=== PATIENT | female | born 1965 | race Caucasian/White ===

== ENCOUNTER 2019-09-04 16:40 | Emergency (ER) | payer SELFPAY ==
[~2019-09-04] VITALS: Ht 160 cm; Wt 77.1 kg
--- OUTSIDE RECORDS SUMMARY | ~2019-09-04 | XMS | Encounter Summary ---
Demographics + + + | Address | [address] | | | [place] [address] | + + + | Home Phone | | + + + | Preferred Language | Unknown | + + + | Marital Status | | + + + | Hoahaoism Affiliation | CAT | + + + | Race | White | + + + | Ethnic Group | Not or | + + + Author + + + | Author | [facility] | + + + | Organization | [facility] | + + + | Address | Unknown | + + + | Phone | Unavailable | + + + Support + + +---------+ + | Name | Relationship | Address | Phone | + + +---------+ + | Ranjana Shell | ECON | Unknown | | + + +---------+ + Care Team Providers + +------+ + | Care Ice Cream Vault Worker Name | Role | Phone | + +------+ + | Shwetha Joseph | PCP | | + +------+ + Encounter Details +--------+ + + + + | Date | Type | Department | Care Team | Description | +--------+ + + + + | 12/16/ | Pharmacy | Outpatient Retail | | | | 2018 | Visit | [facility] | | | | | | [address] | | | | | | [place], | | | | | | [place] [address] | | | +--------+ + + + + Social History + +-------+ +--------+------+ | Tobacco Use | Types | Packs/Day | Years | Date | | | | | Used | | + +-------+ +--------+------+ | Never Smoker | | | | | + +-------+ +--------+------+ + +---+---+---+ | Smokeless Tobacco: | | | | | Never Used | | | | + +---+---+---+ + + +---------+ + | Alcohol Use | Drinks/Week | oz/Week | Comments | + + +---------+ + | No | | | | + + +---------+ + + + + | Sex Assigned at | Date Recorded | | | | + + + | Not on file | | + + + + + + + | Job Start Date | Occupation | Industry | + + + + | Not on file | Not on file | Not on file | + + + + + + + + | Travel History | Travel Start | Travel End | + + + + + + | No recent travel history available. | + + documented as of this encounter Plan of Treatment +--------+---------+ + + + | Date | Type | Specialty | Care Team | Description | +--------+---------+ + + + | 02/05/ | Office | Plastic Surgery | Corine Olguin, | | | 2019 | Visit | | [address] | | | | | | [address] | | | | | | [place], [place] | | | | | | [address] | | | | | | [phone] | | | | | | | | +--------+---------+ + + + documented as of this encounter Visit Diagnoses Not on filedocumented in this encounter"
--- OUTSIDE RECORDS SUMMARY | ~2019-09-04 | XMS | Encounter Summary ---
Demographics + + + | Address | [address] | | | [place] [address] | + + + | Home Phone | | + + + | Preferred Language | Unknown | + + + | Marital Status | | + + + | Judaism Affiliation | CAT | + + + | Race | White | + + + | Ethnic Group | Not or | + + + Author + + + | Author | [facility] | + + + | Organization | [facility] | + + + | Address | Unknown | + + + | Phone | Unavailable | + + + Support + + +---------+ + | Name | Relationship | Address | Phone | + + +---------+ + | Ranjana Shell | ECON | Unknown | | + + +---------+ + Care Team Providers + +------+ + | Care Overhead Line Worker Name | Role | Phone | + +------+ + | Shwetha Joseph | PCP | | + +------+ + Reason for Visit +---------+ + | Reason | Comments | +---------+ + | Post Op | abdominoplasty and monsplasty and trunk lipo | +---------+ + Encounter Details +--------+---------+ + + + | Date | Type | Department | Care Team | Description | +--------+---------+ + + + | 03/04/ | Office | Plastic and | Corine Olguin, | Status post | | 2019 | Visit | Reconstructive | [address] | abdominoplasty | | | | Surgery at [facility] [address] | [address] | (Primary Dx); | | | | [address] | [place], [place] | Essential | | | | Mailcode: 5 | [address] | hypertension, benign | | | | [facility] | [phone] | | | | | and Healing, | | | | | | [address] | | | | | | Floor [facility] [place] | | | | | | [address] | | | | | | [phone] | | | +--------+---------+ + + + Social History + +-------+ [...] + + documented as of this encounter Last Filed Vital Signs + +---------+ + + | Vital Sign | Reading | Time Taken | Comments | + +---------+ + + | Blood Pressure | 155/91 | 01/31/2019 12:57 PM | | | | | PST | | + +---------+ + + | Pulse | 93 | 01/31/2019 12:57 PM | | | | | PST | | + +---------+ + + | Temperature | - | - | | + +---------+ + + | Respiratory Rate | 16 | 01/31/2019 12:57 PM | | | | | PST | | + +---------+ + + | Oxygen Saturation | 97% | 01/31/2019 12:57 PM | | | | | PST | | + +---------+ + + | Inhaled Oxygen | - | - | | | Concentration | | | | + +---------+ + + | Weight | - | - | | + +---------+ + + | Height | - | - | | + +---------+ + + | Body Mass Index | - | - | | + +---------+ + + documented in this encounter Patient Instructions Patient Instructions Cole Oh - 01/31/2019 1:45 PM PST- Increase core muscle strength exercises - Please continue scar massages. documented in this encounter Progress Notes Corine Olguin MD - 01/31/2019 1:45 PM PST Division of Plastic and Reconstructive Surgery Date of surgery: 12/16/2018. Description of surgery: 1. Tgjaq-vc-Cvf abdominoplasty. 2. Wedge monsplasty. 3. Abdominal wall liposuction. History of present illness: Anne-Marie Mora is a 53 year old female status post Dzhdu-oz-Pug abdominoplasty with wedge monsplasty and abdominal wall liposuction about 6 weeks ago. She reports that she is doing well overall. The patient notes a tightness sensation in the abdomen that can occasion ally result in a burning pain, but it has slightly reduced in the past week. She removed her final drain at home over two weeks ago. The patient denies any fevers, chills, or redness. Physical Exam: BP (!) 155/91 | Pulse 93 | Resp 16 | SpO2 97% General: NAD, conversant. Abdomen: incisions are healing well. No gross hematoma or seroma. Protuberant abdomen. Assessment & Plan: Anne-Marie Mora is a 53 year old female status post Rjxtc-ib-Gql abdominoplasty with wedge monsplasty and abdominal wall liposuction about 6 weeks ago, doing well. 1. Abdominal incision is healing well. Continue with daily scar massages. 2. Work release - released the patient back to work without any restriction. Clearance tana er was gave to the patient. 3. Elevated BP reading - follow-up with her PCP for evaluation. 4. RTC in a year for routine follow-up. I, Cole Oh, am functioning as a scribe for Corine Olguin MD. I have reviewed and verified the above scribed note of my visit with this patient as record ed by Cole Oh. Corine Olguin MD PLASTIC AND RECONSTRUCTIVE SURGERY AT [facility] [address] Mail Code: [place] [address] documented in this en counter Plan of Treatment +--------+---------+ + + + | Date | Type | Specialty | Care Team | Description | +--------+---------+ + + + | 02/05/ | Office | Plastic Surgery | Corine Olguin, | | | 2019 | Visit | | [address] | | | | | | [address] | | | | | | [place], [place] | | | | | | [address] | | | | | | [phone] | | | | | | | | +--------+---------+ + + + documented as of this encounter Visit Diagnoses + + | Diagnosis | + + | Status post abdominoplasty - Primary Other postprocedural status | + + | Essential hypertension, benign | + + documented in this encounter"
--- OUTSIDE RECORDS SUMMARY | ~2019-09-04 | XMS | Encounter Summary ---
Demographics + + + | Address | [address] | | | [place] [address] | + + + | Home Phone | | + + + | Preferred Language | Unknown | + + + | Marital Status | | + + + | Yazdanism Affiliation | CAT | + + + | Race | White | + + + | Ethnic Group | Not or | + + + Author + + + | Author | [facility] | + + + | Organization | [facility] | + + + | Address | Unknown | + + + | Phone | Unavailable | + + + Support + + +---------+ + | Name | Relationship | Address | Phone | + + +---------+ + | Ranjana Shell | ECON | Unknown | | + + +---------+ + Care Team Providers + +------+ + | Care Shoelace Tipping Machine Operator Name | Role | Phone | + +------+ + | Shwetha Joseph | PCP | | + +------+ + Reason for Visit + + + | Reason | Comments | + + + | Postoperative visit | abdominoplasty. Concern: pain management Noticed SOB when taking | | | gabapentin. | + + + Encounter Details +--------+---------+ + + + | Date | Type | Department | Care Team | Description | +--------+---------+ + + + | 12/31/ | Office | Plastic and | Kathy Olivas, | Postop check | | 2019 | Visit | Reconstructive | [facility] [address] | (Primary Dx); | | | | Surgery at [facility] [address] | [address] [place], [place] | Intermittent asthma, | | | | [address] | [address] | unspecified asthma | | | | Mailcode: [facility] | [phone] | severity, | | | | [facility] | | unspecified whether | | | | and Healing, | | complicated; Change | | | | [address] | | or removal of drains | | | | Floor [place], [place] | | | | | | [address] | | | | | | [phone] | | | +--------+---------+ + + + [...] this encounter Last Filed Vital Signs + + + + + | Vital Sign | Reading | Time Taken | Comments | + + + + + | Blood Pressure | 147/77 | 12/31/2018 1:08 PM | | | | | PST | | + + + + + | Pulse | 107 | 12/31/2018 1:08 PM | | | | | PST | | + + + + + | Temperature | - | - | | + + + + + | Respiratory Rate | - | - | | + + + + + | Oxygen Saturation | 95% | 12/31/2018 1:08 PM | | | | | PST | | + + + + + | Inhaled Oxygen | - | - | | | Concentration | | | | + + + + + | Weight | 86.2 kg (190 lb) | 12/31/2018 1:08 PM | | | | | PST | | + + + + + | Height | - | - | | + + + + + | Body Mass Index | 33.66 | 12/16/2018 6:25 AM | | | | | PST | | + + + + + documented in this encounter Patient Instructions Patient Instructions Kathy Olivas FNP - 12/31/2018 1:15 PM PST-Ok to shower, do not allow shower water pressure to run directly on the incision or drain site(s) but ok for soap and water to rinse the area. NO swimming, no soaking, no saunas, no baths until incisions a re fully healed. -For compressive garment/wrap: Wear compressive garment/wrap daily (washing every 2-3 days and air drying it). If the compression wrap is causing any difficulty breathing, please loos en it, if it continues to cause any difficulty breathing-please contact us immediately to nicky serrato. -Drain care: If any drains are present, these should be removed once output is under 30mL ( per 24 hours) for 48 hours. If drains are in longer than 3 weeks, please contact us to theerse de leon. -Keep incisions out of sunlight for one year - sunlight will darken scars and could affect healing times. -No heavy excercise, no heavy lifting. Ok to walk; start with very short distances and incr ease slowly every week - if any worsening or swelling, scale back on amount of walking. Sadaf mber to listen to your body if an activity hurts, stop and do not try it again for a cou ple days. Activity restrictions are usually lifted at 6 weeks postoperatively as long as you are healing well. -Focus on stress reduction: This is the time for your family and friends to help reduce str ess for you so you can heal. Try to get adequate rest. -Eat healthy: make sure you are getting the COMMERCIAL PROPERTY MANAGER recommended amounts (unless you are allergi c) of Vitamin C, a multivitamin , probiotics and add healthy proteins to your nutrition: bra nd-name yoghurt, egg whites, lean meats, fresh leafy greens, fresh vegetables. Avoid process ed foods and processed meats. -Consider silicone gel to aid in incision healing and reduce scarring (see below). We have pharmaceutical grade silicone gel available for purchase. -A small percentage of healthy patients will "spit" sutures from their incision sites. You r immune system will see the absorbent suture as a foreign body and spit the suture out. Thi s can take a long time to heal. Best treatment is to leave the area alone but keep it clean, bacitracin to the area. If it becomes too dry or too moist it could become further irritate d. Please do not pick at the area. Schedule an appt if you are concerned or if it looks like it is becoming infected (redness, swelling, purulent discharge or if any additional concern s). -At check out today make a follow up appointment with Dr. Sharif CALL for 4 weeks from today, sooner if any concerns. Questions? Please do not hesitate to call our office at [phone] with any questions or concerns. Ask for Kathy Olivas, Nurse Practitioner or my Coal Mine Inspector. Scar management: To optimize the conditions for a favorable scar you can: ? Stop using tobacco products (if you do)! Tobacco is bad for healing. Tobacco and tobacco smoke is filled with chemicals that decrease oxygen and healing. ? Avoid direct sunlight to your incision for 12 months after your surgery as your scars may darken or thicken. After your sutures are removed, and/or the incision site has healed: use a sunscreen with an SPF 30 or higher on the incisions every 2 hours when outdoors. ? Studies have shown that the application of silicone gel can improve the appearance of sca rs (not to be used above eyes or in certain areas - please consult with us before use). For optimal results, wear as often as possible for a minimum of 2 months. Silicone gels may be a pplied as soon as your physician tells you that your wound is ready, generally 3-4 weeks aft er surgery (only on fully healed incisions - no open incisions). Test the silicone gel on an area of your hand you can see for one day before use. If you tolerate well, then can use on your incisions as below. Other scar products such as Mederma and Vitamin E have not been proven to work, and you might even be allergic to these products. Call our office immediately or seek medical care if: ? You have severe pain at the surgery site ? You have fluid under the skin or a lot of swelling at the surgery site ? You are sick to your stomach and cannot keep fluids down ? You have pain that does not get better after you take pain medicine ? You have signs of infection, such as: o Increased pain, swelling, warmth or redness o Red streaks leading from your incision o Pus draining from the incision o A fever (oral temperature greater than 101.5 F or 38.5 C) ? You have signs of a blood clot, such as: o Shortness of breath o Pain in your calf, back of the knee, thigh or groin o Redness or swelling in your leg or groin Call 911 anytime you think you have a life threatening emergency or think you may need [facility] care. documented in this encounter Progress Notes Kathy Olivas FNP - 12/31/2018 1:15 PM PST Division of Plastic and Reconstructive Surgery Date of surgery: 12/16/2018. Description of surgery: Opkkk-wo-Tpt abdominoplasty. Wedge monsplasty. Abdominal wall liposuction. Surgeon: Dr. Corine Olguin MD. POD#: 14. Drains: Two 19-Slovenian Bk drains to the anterior abdominal wall with 1 drain along each g utter and one 15-Slovenian Bk drain along the midline. Subjective: Notes baseline asthma. Difficult to manage at times. Requesting strong opioid pain medications. She notes she called in previously and was given gabapentin. Higher amounts of gabapentin affect her breathing at night. She is asthmatic an d has needed her inhaler more after surgery. Denies any current shortness of breath. Has three drains in place. 2 drains are below 20mL in the last 2 days, additional drain C i s above 40mL in the past 2 days. Overall notes healing. Denies fevers, chills, worsening or redness. BP 147/77 | Pulse 107 | Wt 86.2 kg (190 lb) | SpO2 95% | BMI 33.66 kg/(m^2) Oxygen sats - 95% at previous visit with Dr. Olguin as well - not abnormal for her per patie nt. Objective: General: NAD, conversant. Respiratory: Non-labored breathing, Clear to auscultation, no ronchi, rales or wheezes. Incision site, lower abdomen and mons: CDI incisions. Surgical soft, non-indurated, no swel ling, erythema, fluctuance or induration. Procedures done: Drain A removed due to low output. Assessment: Pain management 2 weeks status post surgery - Given she notes some shortness of breath with nighttime gabapentin, a stronger opioid is contraindicated at this time due to possible int eraction with gabapentin and likely to worsen her breathing at night as well regardless. Recommended she follow up with her PCP for improved management of her asthma as well. Declined her opioid request. Recommended she lessen gabapentin with time as well, especiall y if causing . If she sees her PCP on Thursday, stops gabapentin and we have confirmation of her asthma unde r better control in a short timeframe (1-2 days), I'm comfortable prescribing short RX of tr amadol 50mg to continue only if NOT causing any shortness of breath (#8). Plan: -She will remove final drains at home once less than 30mL per day for [address] Olguin's instructions. Instructions accidentally not provided - but asked that Cassandra ca ll to provide instructions (via email if possible). -Asked Cassandra to follow up with Anne-Marie regarding insurance requirements. She notes her work is asking for postop paperwork. -Also asked Cassandra to remind Anne-Marie to lessen her gabapentin if she is having shortness of breath. Additional pain management methods should be discussed with Dr. Ardon/residents as needed. Anne-Marie cannot take NSAIDs due to her GERD. -Discussed nutrition, healing, pain control, drain management. -In addition, asked that Anne-Marie contact us if any questions or concerns as well. I answered all of the patient's questions, discussed all examination findings, all recommen ded precautions, and discussed the agreed upon plan with the patient. The patient indicated understanding of the plan, the important precautions, and agrees/agreed with the plan. Kathy Olivas NP Division of Plastic & Reconstructive Surgery [facility] documented in this encounter Plan of Treatment +--------+---------+ + + + | Date | Type | Specialty | Care Team | Description | +--------+---------+ + + + | 02/05/ | Office | Plastic Surgery | Corine Olguin, | | | 2019 | Visit | | [address] | | | | | | [address] | | | | | | [place], [place] | | | | | | [address] | | | | | | [phone] | | | | | | | | +--------+---------+ + + + documented as of this encounter Visit Diagnoses + + | Diagnosis | + + | Postop check - Primary Follow-up examination, following unspecified surgery | + + | Intermittent asthma, unspecified asthma severity, unspecified whether complicated | + + | Change or removal of drains Other specified aftercare following surgery | + + documented in this encounter
--- OUTSIDE RECORDS SUMMARY | ~2019-09-04 | XMS | Encounter Summary ---
Demographics + + + | Address | [address] | | | [place] [address] | + + + | Home Phone | | + + + | Preferred Language | Unknown | + + + | Marital Status | | + + + | Episcopalian Affiliation | CAT | + + + | Race | White | + + + | Ethnic Group | Not or | + + + Author + + + | Author | [facility] | + + + | Organization | [facility] | + + + | Address | Unknown | + + + | Phone | Unavailable | + + + Support + + +---------+ + | Name | Relationship | Address | Phone | + + +---------+ + | Ranjana Shell | ECON | Unknown | | + + +---------+ + Care Team Providers + +------+ + | Care Deckhand Maintenance Name | Role | Phone | + +------+ + | Shwetha JosephP | PCP | | + +------+ + Encounter Details +--------+ + + + + | Date | Type | Department | Care Team | Description | +--------+ + + + + | 01/07/ | Telephone | Plastic and | Corine Olguin, | | | 2019 | | Reconstructive | [address] | | | | | Surgery at [facility] [address] | [address] | | | | | [address] | [place], [place] | | | | | Mailcode: [place] | [phone] | | | | | [facility] | [phone] | | | | | and Healing, | | | | | | Building [address], | | | | | | Floor [place], [place] | | | | | | [address] | | | | | | [phone] | | | +--------+ + + + [...] [address] | | | | | | [place] | | | | | | [address] | | | | | | [phone] | | | | | | | | +--------+---------+ + + + documented as of this encounter Visit Diagnoses Not on filedocumented in this encounter"
--- OUTSIDE RECORDS SUMMARY | ~2019-09-04 | XMS | Encounter Summary ---
Demographics + + + | Address | [address] | | | [place] [address] | + + + | Home Phone | | + + + | Preferred Language | Unknown | + + + | Marital Status | | + + + | Religion Affiliation | CAT | + + + | Race | White | + + + | Ethnic Group | Not or | + + + Author + + + | Author | [facility] | + + + | Organization | [facility] | + + + | Address | Unknown | + + + | Phone | Unavailable | + + + Support + + +---------+ + | Name | Relationship | Address | Phone | + + +---------+ + | Ranjana Shell | ECON | Unknown | | + + +---------+ + Care Team Providers + +------+ + | Care Supervisor Home Energy Consultant Name | Role | Phone | + +------+ + | Shwetha JosephP | PCP | | + +------+ + Reason for Visit + + + | Reason | Comments | + + + | Postoperative | drain | | Questions | | + + + Encounter Details +--------+ + + + + | Date | Type | Department | Care Team | Description | +--------+ + + + + | 01/11/ | Telephone | Plastic and | Corine Olguin, | Postoperative | | 2019 | | Reconstructive | [address] | Questions (drain) | | | | Surgery at [facility] [address] | [facility] | | | | | [address] | [place], [place] | | | | | Mailcode: [facility] | [address] | | | | | [facility] | [phone] | | | | | and Healing, | | | | | | [address] | | | | | | Floor [place], [place] | | | | | | [address] | | | | | | [phone] | | | +--------+ + + + [...] [address] | | | | | | [place], [place] | | | | | | [address] | | | | | | [phone] | | | | | | | | +--------+---------+ + + + documented as of this encounter Visit Diagnoses Not on filedocumented in this encounter"
--- OUTSIDE RECORDS SUMMARY | ~2019-09-04 | XMS | Encounter Summary ---
Demographics + + + | Address | [address] | | | [place] [address] | + + + | Home Phone | | + + + | Preferred Language | Unknown | + + + | Marital Status | | + + + | Catholic Affiliation | CAT | + + + | Race | White | + + + | Ethnic Group | Not or | + + + Author + + + | Author | [facility] | + + + | Organization | [facility] | + + + | Address | Unknown | + + + | Phone | Unavailable | + + + Support + + +---------+ + | Name | Relationship | Address | Phone | + + +---------+ + | Ranjana Shell | ECON | Unknown | | + + +---------+ + Care Team Providers + +------+ + | Care Pan Shover Name | Role | Phone | + +------+ + | Shwetha JosephP | PCP | | + +------+ + Reason for Visit AUTH/CERT +--------+--------+ + + + + | Status | Reason | Specialty | Diagnoses / | Referred By | Referred To | | | | | Procedures | Contact | Contact | +--------+--------+ + + + + | | | | | | | +--------+--------+ + + + + Encounter Details +--------+---------+ + + + | Date | Type | Department | Care Team | Description | +--------+---------+ + + + | 12/16/ | Surgery | [address] | Corine Olguin, | ANN | | 2018 | | [address] | [address] | ABDOMINOPLASTY WITH | | | | [address] | [address] | [facility] | | | | [facility] | [place], [place] | | | | | Surgery Admitting | [address] | | | | | Desk Located on the | [phone] | | | | | 4th floor, Room | | | | | | [address], [place] | | | | | | [address] | | | +--------+---------+ + + + [...] + + + | Blood Pressure | 135/83 | 12/16/2018 5:26 PM | | | | | PST | | + + + + + | Pulse | 100 | 12/16/2018 5:26 PM | | | | | PST | | + + + + + | Temperature | 36.7 C (98.1 F) | 12/16/2018 5:26 PM | | | | | PST | | + + + + + | Respiratory Rate | 16 | 12/16/2018 5:26 PM | | | | | PST | | + + + + + | Oxygen Saturation | 95% | 12/16/2018 5:26 PM | | | | | PST | | + + + + + | Inhaled Oxygen | - | - | | | Concentration | | | | + + + + + | Weight | 86.2 kg (190 lb) | 12/16/2018 6:25 AM | | | | | PST | | + + + + + | Height | 160 cm (5' 3") | 12/16/2018 6:25 AM | | | | | PST | | + + + + + | Body Mass Index | 33.66 | 12/16/2018 6:25 AM | | | | | PST | | + + + + + documented in this encounter Discharge Instructions Instructions Nasrin Trevino RN - 12/16/2018 Recovery Instructions: Abdominoplasty Upon arriving at home, it is best to start low-level activity. You are encouraged to brush your teeth and hair, and get up and walk around the house. Most patients are surprised that they can resume these simple tasks so quickly. Please keep in mind that you have just had a n operation and it is still important to take things easy. Remember to listen to your body; avoid any activity that causes pain or discomfort. Keep your waist flexed about 30 degrees for a week before slowly straightening up your back . You may find it more comfortable to sleep in a reclining chair or beach chair position (re clined with head of bed elevated and knees bent with pillows placed beneath them) for a week after surgery. Do not apply a heating pad or hot water bottle to your abdomen at any time after surgery. A fter surgery, the skin around the incision on your abdomen may be numb, causing you to inadv ertently burn your skin when applying heat. Abdominal Binder/Garment: You may be given an abdominal binder or compression garment to w ear after your surgery. If you are given a binder or garment, please wear it or a comparable garment at all times until your physician tells you to remove it. If the garment is causing pain or skin irritation should stop wearing it. Your abdomen will be swollen after surgery. This is normal and will gradually get better over time. You will also have some tightness o f the abdomen after surgery that will relax over the next six months. Showering and Wound Care: Your incisions may be covered with a non-adherent dressing and g auze. You can start showering 24 hours after surgery. Use a gentle soap and allow water to rinse your incisions. When drying, be gentle and towel pat dry. Please avoid hot tubs, swimming pools, or soaking your incision until advised otherwise. Av oid applying lotion over your incisions. If your incision is not covered with skin adhesive , apply bacitracin 2-3 times a day along the incisions site. Do not use hydrogen peroxide or alcohol on incisions as this can slow healing. Tobacco and nicotine are bad for wound healing. Tobacco smoke is filled with chemicals that decrease oxygen and healing. Vitamin C and Zinc are critical to the healing process. If yo u eat a well-balanced diet, you most likely have enough. However, if you do not eat a lot of fruits and vegetables, you should take an extra Multi-Vitamin with Vitamin C and Zinc. Drains: If you have drains placed, you or a caregiver will be taught how to take care of th em (see separate care instructions). Record the output every day and bring this information to your postoperative visit. Drains are typically removed once the output is less than 30ml per day for each drain. Food: If you are feeling well without nausea, resuming your regular diet is fine. Most rosetta seguras prefer to avoid heavy or greasy foods the first 24 hours after surgery. Eat a high pr otein and high vitamin C diet to promote healing. Excessive alcohol suppresses your immune s ystem and increases your risks of surgical site infection. Having an occasional glass of win e or beer is fine. 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 Most patients will benefit from 4-6 weeks off more strenuous work requirements. No heavy lifting more than 10 pounds for 6 weeks after surgery. Driving: You may resume driving when you are no longer taking prescription narcotic pain m edication and feel you can safely operate a vehicle. Driving while taking narcotic medicatio n is equivalent to drinking and driving. Exercise restrictions: It is safe to resume normal daily activities as soon as you feel yo u are able. Avoid strenuous aerobic exercise such as running, aerobics, and weight lifting w hich can cause swelling, bleeding or prevent healing until cleared by your doctor. Remember to listen to your body if an activity hurts, stop and do not try it again for a couple d ays. Medications: Narcotic pain medication may be given to you after surgery. These pain medica tions may not be necessary if your pain is minimal. Narcotics can be associated with several common side effects such as constipation, nausea, headache, and itching. A good alternative to these medications are Ibuprofen (Motrin, Advil), Naproxen (Aleve) or Tylenol. Follow the medication instructions on the bottle if you are having pain. Avoid consuming alcohol and a dhere to driving restrictions while taking any narcotic pain medication (see above). Scar management: To optimize the conditions for a favorable scar you can: ? Avoid direct sunlight to your incision for 12 months after your surgery as your scars may darken or thicken. Use a sunscreen with an SPF 30 or higher on the incisions every 2 hours when outdoors in the sun. ? Massaging the scar may help breakdown scar tissue and hasten the resolution of swelling i n the area. Massage may be done multiple times a day with a good quality lotion such as Lub riderm, Cetaphil, or Eucerin after the wound has healed. Usually beginning 2-3 weeks after s urgery. ? Studies have shown that the application of silicone sheeting or gel can improve the appea kaden of scars. Silicone sheeting should be applied between 6-24 hours a day, removing once daily to allow site to be washed and dried. For optimal results, wear as often as possible f or a minimum of 2 months. Silicone sheeting or gels may be applied as soon as your physician tells you that your wound is ready, generally 2-3 weeks after surgery. ? Other scar products such as Mederma and Vitamin E have not been proven to work, and you might even be allergic to these products. Follow-up appointment: You will be scheduled to be seen in clinic about 1-2 weeks after you r surgery. Questions? Please feel free to call our office at [phone] with any questions. Call our office immediately or seek medical care if: ? You have severe pain in your abdominal area ? You have fluid under the skin [...] threatening emergency or think you may need [facility] care. POSTOPERATIVE INSTRUCTIONS DOCUMENT DRAIN OUTPUT: You are being dismissed with 3 surgical drains to drain fluid out of your wound. Please e mpty your drains several times per day as instructed and record daily output in the booklet provided. Bring this booklet with you to your follow-up appointment. Contact Dr. Olguin's of fice once the daily output is less than 20 mL for 2 consecutive days. This may mean that yo ur drains are ready for removal. If your drains meet removal criteria before your follow-up appointment, please contact Dr. Olguin's service for further assistance. DRAIN CARE: Keep the area around where the tube exits the skin dry and covered with a light dressing. C hange the dressing every day to keep the area around the tubes dry. Pin the tubes to your c lothing with a safety pin to prevent yourself from pulling the on the drains and accidentall y removing them. The drainage container(s) (bulbs) should be emptied when they become half full as they will not create suction when they become too full. Keep the container (bulb) c ompressed at all times excepts when emptying it as compression creates the gentle suction. How to care for the skin and the drain site: 1. Wash your hands well with soap and water. 2. Remove the dressing from around the drain. 3. Use soap and water to clean the drain site and the skin around it. 4. Clean this area once a day.When the drain site is clean and dry, put a new dressing arou nd the drain. 5. Put tape on the dressing to hold it down against your skin. 6. Throw the old dressing in the trash and wash your hands. 7. Tape the tube to your skin, one to two inches below the dressing, to keep it from kings g on the stitches that hold the tube in place. 8. Pin the tube to your clothes using a piece of tape attached to the tube and a safety pin . If the tube is long, tuck the tube and the container beneath your undergarments. How to empty the drain: 1. Wash your hands well with soap and water. 2. Pull the plug out of the bulb. 3. Pour the fluid inside the bulb into a measuring cup. 4. Squeeze the bulb flat. While the bulb is flat, put the plug back into the bulb. The bul b should stay flat after it is plugged so that the vacuum suction can restart. If you can't squeeze the bulb flat and plug it at the same time, use a hard, flat surface (such as a tab le) to help you press the bulb flat while you replace the plug. 5. Measure how much fluid you collected. Write the amount of drainage, and the date and misha e you collected it, on the BENNY drainage chart in booklet or journal 6. Flush the fluid down the toilet. 7. Wash your hands. Keep the container compressed at all times except when emptying it. The compression create s gentle suction. Record the amount of fluid you empty each time. Total the amount of fluid you empty in eac h 24-hour period. Bring this record to your next appointment with your physician. If drain output drops significantly over 24 hours, or ceases altogether, contact Dr. Olguin' s service to make them aware. Watch the skin around the drain for these signs of infection: -Increased redness -Increased pain -Increased swelling -Fever greater than 101 degrees Fahrenheit -Cloudy yellow, barajas, or foul-smelling drainage (if this is a change from when you left the hospital) If you have any of these symptoms, please contact 's service. If your drain falls out: Do not panic; place a dressing over the hole. Record your output that was in the drain when it fell out. Call your provider and let them know it fell out a t which time they will provide you with further instructions. 1. Wound care. You were instructed on the signs and symptoms of infection including: redne ss, swelling, drainage, increasing incisional pain, and fever greater than 100.5 degrees F. Should any of these symptoms occur, you should seek medical attention and/or contact the [facility] at ([phone]). After normal business hours, please call the [facility] shotblast operator at [phone] and ask for the "[facility]"resident evp chief exploration officer. 2. You may shower, however, do not immerse the wound underwater, such as in baths, swimming pools, hot-tubs and lakes, for a period of 2 weeks. 3. Activity level. You are encouraged to ambulate as much as tolerable, however, avoid pus katlyn, pulling, and lifting over 10 pounds until you are seen in follow-up. Limit activities involving lifting greater than 1 gallon of milk. Activities involving pushing, pulling, constanza d work, vacuuming, and other strenuous household duties and sports, should be avoided. 4. If you are taking narcotic pain medication, do not drive, operate heavy machinery, ride motorcycles or ATVs, drink alcohol, or take other drugs that make you tired or sleepy while taking narcotic pain medications. Do not participate in any dangerous activity while taking pain medications. Pain medications may decrease your ability to make safe decisions. You ma y resume driving when you are no longer taking these medications and feel comfortable wearin g a seatbelt and making the maneuvers required to operate an automobile safely. 5. Take your pain medications as instructed. It is best to take pain medications before yo ur pain becomes severe. This will allow you to take less medication yet have better pain rel ief. For the first 2 or 3 days it may be helpful to take your pain medications on a regular schedule (e.g. every 4 to 6 hours). This will help you to keep your pain under better contr ol. You should then begin to take fewer medications each day until you no longer need them. Do not take pain medication on an empty stomach. This may lead to nausea and vomiting. Non-Drug Pain Control Methods Include: Cold and Heat, Distraction, Massage, Music, Physica l Therapy, Relaxation, Exercises, Rest. 6. Constipation: Patients are often constipated after general anesthesia and surgery. You should continue to take stool softeners as long as you are on the narcotic pain medications. You should also d rink adequate amounts of water. If you remain constipated or unable to pass stool, please t ry one or all of the following measures: 1. Milk of magnesia 30 cc twice a day as needed. 2. Metamucil 2 tablespoons in 12 ounces of fluid. 3. Dulcolax oral or suppositories. 4. Prunes or prune juice. All of the above are available over the counter. Please consult your pharmacist of you have any questions about these products. How to prevent constipation Avoid hard cheeses and refined grains such as rice and macaroni. Drink more water, juice, and warm liquids. You may take kkin-lvr-supegdj fiber supplements. (i.e. Metamucil or Citrucel) Walking and activity. Nursing Discharge Instructions General discharge instructions for same-day procedure patients: Remember that you are under the influence of medication. Do not stay alone. A responsible person should be with you. Do not drive, drink alcohol or make important personal or business decision for 24 hours . Resume normal activity and return to work when advised by your Doctor. Pain Management: Your last oral pain medication was given at: 10mg Oxycodone given at 2pm Please follow your Doctor's instructions on the medication bottle. Do not take pain medication on an empty stomach, as this may cause nausea and vomiting. Do not drive or drink alcohol while on narcotic pain medication. Diet: If you do not experience nausea or vomiting resume your regular diet. Eat lightly and av oid large, high fat or highly spiced meals for 24-48 hours. Constipation can be a side effect of narcotic pain medication. Take stool softeners, in crease dietary fiber and drink plenty of water to prevent this. Wound/Dressing/Drain Care: Change your dressing according to your Doctor's instructions. You may place a bandaid o n incisional site if needed. Change bandaid daily. Call your Doctor if there is excessive bleeding, redness, swelling or drainage at the o perative site. Follow up appointment: IV Site Care Instructions: Monitor IV site for pain, redness, swelling and/or drainage. If present, call your Doct or immediately. Minor redness and/;or tenderness may be treated with warm, moist compresses for 24-48 ho urs, If the area is still red and/or tender after this, notify your Doctor. Call 911 if you experience difficulty breathing or unusual shortness of breath. Additional Home Care Instructions: After arriving home you may receive a patient satisfaction survey from "[employer]". We sameera carrillo appreciate your feedback on the survey to help us provide excellent service to you and your families. documented in this encounter Medications at Time of Discharge + + + +---------+ + + | Medication | Sig | Dispensed | Refills | Start | End Date | | | | | | Date | | + + + +---------+ + + | acetaminophen 325 | Take 325 mg by mouth | | 0 | | | | mg oral tablet | every four hours as | | | | | | | needed. | | | | | + + + +---------+ + + | acetaminophen 500 | Take 2 tablets by | | 0 | 12/16/19 | | | mg oral tablet | mouth every six | | | 19 | | | | hours. | | | | | + + + +---------+ + + | furosemide 20 mg | Take 20 mg by mouth | | 0 | 08/28/20 | | | oral tablet | once daily in the | | | 18 | | | | morning. | | | | | + + + +---------+ + + | Lisdexamfetamine | Take 50 mg by mouth | | 0 | | | | (VYVANSE) 50 mg oral | once daily in the | | | | | | capsule | morning. | | | | | + + + +---------+ + + | losartan 25 mg | Take 25 mg by mouth | | 0 | | | | oral tablet | as needed. | | | | | + + + +---------+ + + | omeprazole 20 mg | Take 20 mg by mouth | | 0 | | | | oral capsule,delayed | two times daily. | | | | | | release(/GEGE) | | | | | | + + + +---------+ + + documented as of this encounter Plan of Treatment +--------+---------+ + + + | Date | Type | Specialty | Care Team | Description | +--------+---------+ + + + | 02/05/ | Office | Plastic Surgery | Corine Olguin, | | | 2019 | Visit | | [address] [facility] | | | | | | [address] | | | | | | [place], [place] | | | | | | [address] | | | | | | [phone] | | | | | | | | +--------+---------+ + + + documented as of this encounter Procedures + +--------+ + + + | Procedure Name | Priori | Date/Time | Associated Diagnosis | Comments | | | ty | | | | + +--------+ + + + | OPERATION RECORD | | 12/16/2018 | | Results for this | | | | 6:12 PM | | procedure are in the | | | | PST | | results section. | + +--------+ + + + | CAPILLARY BLOOD | Routin | 12/16/2018 | | Results for this | | GLUCOSE (NO CHG), | e | 5:49 PM | | procedure are in the | | POC | | PST | | results section. | + +--------+ + + + | CAPILLARY BLOOD | Routin | 12/16/2018 | | Results for this | | GLUCOSE (NO CHG), | e | 1:11 PM | | procedure are in the | | POC | | PST | | results section. | + +--------+ + + + | LIPOSUCTION ABDOMEN | Electi | 12/16/2018 | L98.7 | | | & TRUNK | ve | 7:35 AM | | | | | Surgic | PST | | | | | al | | | | + +--------+ + + + | ABDOMINOPLASTY WITH | Electi | 12/16/2018 | L98.7 | | | LIPOSUCTION | ve | 7:35 AM | | | | | Surgic | PST | | | | | al | | | | + +--------+ + + + | CAPILLARY BLOOD | Routin | 12/16/2018 | | Results for this | | GLUCOSE (NO CHG), | e | 6:47 AM | | procedure are in the | | POC | | PST | | results section. | + +--------+ + + + | CARDIOLOGY | | 12/16/2018 | | Results for this | | | | 12:00 AM | | procedure are in the | | | | PST | | results section. | + +--------+ + + + documented in this encounter Results OPERATION RECORD (12/16/2018 6:12 PM PST) + + | Procedure Note | + + | Olguin, Shiliang, MD - 12/16/2018 6:12 PM PST Date of Service: 12/16/2018 Attending | | Surgeon: Corine Olguin MD Radiation Physicist(s): Selma Gloria MD | | Anesthesia: General endotracheal tube anesthesia.Anesthesiologist: Gallito Arango, | | MDPreoperative Diagnoses: 1. Symptomatic lipodystrophy.2. Diabetes mellitus.3. | | Hypertension.4. Gastroesophageal reflex disease.5. Arthritis.6. Body mass index of | | 33.66.Postoperative Diagnoses: 1. Symptomatic lipodystrophy.2. Diabetes mellitus.3. | | Hypertension.4. Gastroesophageal reflex disease.5. Arthritis.6. Body mass index of | | 33.66.Procedure: 1. Shjpt-ol-Xiq abdominoplasty.2. Wedge monsplasty.3. Abdominal wall | | liposuction.Findings: Total weight of tissue removed from the anterior abdominal wall | | was 4686 g. Total amount of aspirate obtained from the abdominal wall was 3500 | | mL.Pathology: None.Intravenous Fluids: 1300 mL crystalloid.Urine Output: None, no | | Nieto.Estimated Blood Loss: 250 mL.Drains: Two 19-Peruvian Bk drains to the anterior | | abdominal wall with 1 drain along each gutter and one 15-Peruvian Bk drain along the | | midline.Complications: None.Surgical Time: Start time at 08:15 hours, end time at | | 12:50 hours.Indication For Surgery: The patient is a 53-year-old female status post | | massive weight loss via diet and exercise who complained of symptomatic lipodystrophy. | | She lost about 60 pounds. Her weight has been stable for about 6 months. She | | complained of recurrent yeast infection along her abdominal skin folds. The patient | | reported constant itchiness, irritation, and burning pain along her abdominal skin fold. | | She rated the pain as 4/10 on a scale of 1-10, 1 being no pain and 10 being very | | painful. She also required antibiotic treatment for her skin fold infection about twice | | a year. She denied any hospitalizations related to her recurrent skin infection. She | | used antifungal cream to control her rashes. Her diabetes has been well controlled. | | Last hemoglobin A1c was 5.7. She wanted her excess abdominal skin and subcutaneous | | tissue to be removed to prevent recurrent skin rashes. Physical exam showed both | | horizontal and vertical skin laxity with excess subcutaneous tissue. She also has a 9 | | cm mons ptosis and a 2 cm rectus diastasis. Therefore, a Vifer-cf-Xos abdominoplasty, | | wedge monsplasty, and trunk liposuction were proposed to the patient. The surgical | | benefits, risks, complications, expected results, and alternatives were discussed with | | the patient in great detail. She voiced understanding and wished to proceed with | | surgery.Detailed Operative Report: The patient was marked in the preoperative holding | | area in a standing position. Her sternal notch and midline were marked for reference. | | Excess skin in the mons, lower abdomen and epigastric regions were marked for resection. | | Areas of abdomen that required liposuction were marked. All questions and concerns | | were answered. She was then transferred to the operating room and placed supine on the | | operating table. She had sequential compression devices to her bilateral lower | | extremity, which were started prior to induction. After adequate general endotracheal | | tube anesthesia, the patient's abdomen was then prepped and draped in the standard | | surgical fashion with ChloraPrep. She received Ancef as her preoperative antibiotic and | | was redosed intraoperatively. A time-out was then performed with the surgical team | | including the correct patient, correct procedures, and correct surgical site. The | | attention was then turned to the abdomen. A #10 blade was then used to make several | | stab incisions within the areas of resection. Tumescent fluid was then used to | | infiltrate the epigastric and lateral abdominal flank regions. After 15 minutes, a | | vacuum-assisted liposuction apparatus was then used to perform liposuction to the | | epigastric and bilateral flank regions. A total of 3 L of tumescent fluid was | | infiltrated to the abdominal wall, and a total of 3500 mL aspirate was obtained. The | | tumescent fluid contained 50 mg of lidocaine with 2 amps of epinephrine in 1 L of normal | | saline. After the liposuction, the attention was then turned to the lower abdominal | | marked line. A #10 blade was then used to make an incision along the lower abdominal | | marked line. Electrocautery was then used to take the incision down to the abdominal | | fascia. Large vessels were clipped and divided. A superior abdominal flap was then | | elevated using electrocautery. Once the superior abdominal marked line was confirmed, a | | #10 blade was then used to make an incision along the superior abdominal marked line as | | well as along the epigastric lines. Electrocautery was then used to excise the excess | | abdominal skin and subcutaneous tissue. Large vessels were clipped and divided. The | | umbilicus was then dissected away from its surrounding tissue using a combination of #15 | | blade and electrocautery. The surgical field was then irrigated with normal saline. | | Adequate hemostasis was obtained with clips and electrocautery. A 2 cm rectus diastasis | | was identified. The rectus diastasis was then repaired using 2-0 Maxon suture in a | | buried interrupted pqyqmv-ut-xoiuu fashion. Two 19-Peruvian Bk drains were then placed | | in the anterior abdominal wall with one drain along each gutter, and one 15-Peruvian | | Bk drain was placed in the midline. Local anesthesia with 1% lidocaine with | | epinephrine mixed with 0.5% ropivacaine in a 50:50 mixture was injected to the anterior | | abdominal wall as field blocks for postoperative pain control. The incision was then | | closed in layers with 2-0 Maxon for Silvana's fascia in a buried interrupted fashion, 3-0 | | V-Loc for dermis in a simple running fashion, and 4-0 Biosyn for skin in a running | | subcuticular fashion. All drains were secured to the skin with 2-0 nylon sutures. All | | drains were shortened and connected to a bulb suction. Bacitracin ointment was then | | applied along the incisions, covered with Xeroform, ABDs and secured in place with an | | abdominal binder. Total weight of tissue removed from the anterior abdominal wall was | | 4686 g. The patient tolerated the procedure well without any complications. At the end | | of the case, all instrument counts were complete and correct. The patient was then | | awakened from anesthesia, extubated, and transferred to the recovery room in stable | | condition. The patient and her family were informed of the intraoperative | | findings.ADAM Villegas/MODLDD: 12/16/2018 19:23:55DT: 12/16/2018 20:19:22Job #: | | [id number] | |informed of the intraoperative findings. | | | |Corine Olguin MD | |SC/MODL | | | | | | /[id number] | + + CAPILLARY BLOOD GLUCOSE (NO CHG), POC (12/16/2018 5:49 PM PST) + +---------+ + + + | Component | Value | Ref Range | Performed | Pathologist | | | | | At | Signature | + +---------+ + + + | BLOOD | 203 (H) | 60 - 99 mg/dL | [facility] | | | GLUCOSE, | | | [facility] | | | POC | | | [facility] | | | | | | [facility] | | | | | | TESTS | | + +---------+ + + + + + | Specimen | + + | | + + + + + + + | Performing | Address | City/State/Zipcode | Phone Number | | Organization | | | | + + + + + | [facility] | [address] | [place], [place] | | | [facility] | [address] | [address] | | | TESTS | | | | + + + + + CAPILLARY BLOOD GLUCOSE (NO CHG), POC (12/16/2018 1:11 PM PST) + +---------+ + + + | Component | Value | Ref Range | Performed | Pathologist | | | | | At | Signature | + +---------+ + + + | BLOOD | 178 (H) | 60 - 99 mg/dL | [facility] - | | | GLUCOSE, | | | [place] | | | POC | | | [facility] | | | | | | [facility] CARE | | | | | | TESTS | | + +---------+ + + + + + | Specimen | + + | | + + + + + + + | Performing | Address | City/State/Zipcode | Phone Number | | Organization | | | | + + + + + | [facility] | [address] | [place], [place] | | | [facility] | [address] | [address] | | | TESTS | | | | + + + + + CAPILLARY BLOOD GLUCOSE (NO CHG), POC (12/16/2018 6:47 AM PST) + +---------+ + + + | Component | Value | Ref Range | Performed | Pathologist | | | | | At | Signature | + +---------+ + + + | BLOOD | 104 (H) | 60 - 99 mg/dL | [facility] - | | | GLUCOSE, | | | [place] | | | POC | | | [facility] | | | | | | [facility]ARE | | | | | | TESTS | | + +---------+ + + + + + | Specimen | + + | | + + + + + + + | Performing | Address | City/State/Zipcode | Phone Number | | Organization | | | | + + + + + | [facility] | [address] | [place], [place] | | | [facility] | [address] | [address] | | | TESTS | | | | + + + + + CARDIOLOGY (12/16/2018 12:00 AM PST) + + + | Narrative | Performed At | + + + | | | + + + documented in this encounter Visit Diagnoses Not on filedocumented in this encounter Administered Medications + +--------+ + +------+------+ | Medication Order | MAR | Action | Dose | Rate | Site | | | Action | Date | | | | + +--------+ + +------+------+ | acetaminophen (TYLENOL) tablet | Given | 12/16/19 | 1,000 mg | | | | 1,000 mg 1,000 mg, oral, | | 19 7:29 | | | | | PREPROCEDURE ONCE, 1 dose, | | AM PST | | | | | Starting Adriana 12/16/18 at 0718, | | | | | | | Until Adri[facility] 12/16/18 at 0729 | | | | | | + +--------+ + +------+------+ +---+---+ | | | +---+---+ + +-------+ +---------+---+ + | bacitracin ointment | Given | 12/16/19 | 1 strip | | Surgical | | INTRAPROCEDURE PRN, Starting [facility] | | 19 11:31 | | | Site | | 12/16/18 at 1131, Until [facility] | | AM PST | | | | | 12/16/18 at 1300 | | | | | | + +-------+ +---------+---+ + +---+---+ | | | +---+---+ + +-------+ +--------+---+---+ | celecoxib (CELEBREX) capsule | Given | 12/16/19 | 400 mg | | | | 400 mg 400 mg, oral, | | 19 7:30 | | | | | PREPROCEDURE ONCE, 1 dose, | | AM PST | | | | | Starting [facility] 12/16/18 at 0718, | | | | | | | Until [facility] 12/16/18 at 0730 | | | | | | + +-------+ +--------+---+---+ + +---+ | | | + +---+ | fentaNYL (SUBLIMAZE) injection | | | 25 mcg 25 mcg, intravenous, | | | POSTPROCEDURE PRN, 8 doses, | | | Starting [facility] 12/16/18 at 0831, | | | Until 12/17/18 at 0013, severe | | | pain while in Phase I Recovery | | + +---+ | | | + +---+ + +-------+ +--------+---+---+ | gabapentin (NEURONTIN) capsule | Given | 12/16/19 | 600 mg | | | | 600 mg 600 mg, oral, | | 19 7:29 | | | | | PREPROCEDURE ONCE, 1 dose, | | AM PST | | | | | Starting [facility] 12/16/18 at 0718, | | | | | | | Until [facility] 12/16/18 at 0729 | | | | | | + +-------+ +--------+---+---+ + +---+ | | | + +---+ | HYDROmorphone (DILAUDID) | | | injection 0.2-0.5 mg 0.2-0.5 mg, | | | intravenous, POSTPROCEDURE PRN, | | | Starting [facility] 12/16/18 at 0831, | | | Until 12/17/18 at 0013, | | | moderate pain while in Phase I | | | Recovery | | + +---+ | | | + +---+ + + + +---+---+---+ | lactated Ringers IV 50 mL/hr, | given by | 12/16/19 | | | | | intravenous, CONTINUOUS, Starting | | 19 1:06 | | | | | [facility] 12/16/18 at 0630, Until Fri | anesthes | PM PST | | | | | 12/17/18 at 0013 | iology | | | | | + + + +---+---+---+ + + +---+---+---+ | given by anesthesiology | 12/16/19 | | | | | | 19 11:34 | | | | | | AM PST | | | | + + +---+---+---+ | given by anesthesiology | 12/16/19 | | | | | | 19 9:08 | | | | | | AM PST | | | | + + +---+---+---+ + +---+ | | | + +---+ | lactated Ringers IV 500 mL, | | | intravenous, POSTPROCEDURE PRN, 1 | | | dose, Starting [facility] 12/16/18 at | | | 0831, Until Thu12/17/18 at 0013, | | | nausea/vomiting due to | | | dehydration | | + +---+ | | | + +---+ | lactated Ringers IV 500 mL, | | | intravenous, POSTPROCEDURE PRN, 1 | | | dose, Starting [facility] 12/16/18 at | | | 0831, Until Thu12/17/18 at 0013, | | | systolic blood pressure less than | | | 80 mmHg. 1st line | | + +---+ | | | + +---+ + +-------+ +-------+---+ + | lidocaine 1% w/ EPI | Given | 12/16/19 | 40 mL | | Surgical | | 1:100K-bupivacaine 0.5% injection | | 19 12:27 | | | Site | | INTRAPROCEDURE PRN, Starting | | PM PST | | | | | [facility] 12/16/18 at 1227, Until Adriana | | | | | | | 12/16/18 at 1300 | | | | | | + +-------+ +-------+---+ + +---+---+ | | | +---+---+ + +-------+ +---+---+ + | lidocaine 1%-EPI 1:1000-NS | Given | 12/16/19 | | | Surgical | | injection INTRAPROCEDURE PRN, | | 19 8:32 | | | Site | | Starting [facility] 12/16/18 at 0815, | | AM PST | | | | | Until Adriana 12/16/18 at 1300 | | | | | | + +-------+ +---+---+ + +-------+ +---+---+ + | Given | 12/16/19 | | | Surgical | | | 19 8:30 | | | Site | | | AM PST | | | | +-------+ +---+---+ + | Given | 12/16/19 | | | Surgical | | | 19 8:15 | | | Site | | | AM PST | | | | +-------+ +---+---+ + + +---+ | | | + +---+ | naloxone (NARCAN) injection | | | intravenous, POSTPROCEDURE PRN, | | | Starting [facility] 12/16/18 at 0831, | | | Until Thu12/17/18 at 0013, | | | hypopnea | | + +---+ | | | + +---+ | ondansetron (ZOFRAN) injection | | | 4 mg 4 mg, intravenous, | | | POSTPROCEDURE PRN, 1 dose, | | | Starting [facility] 12/16/18 at 0831, | | | Until Thu12/17/18 at 0013, | | | nausea/vomiting, 1st line | | + +---+ | | | + +---+ + +-------+ +-------+---+---+ | oxyCODONE (immediate release) | Given | 12/16/19 | 10 mg | | | | (ROXICODONE) tablet 5-10 mg 5-10 | | 19 1:59 | | | | | mg, oral, EVERY 4 HOURS | | PM PST | | | | | NEEDED, Starting [facility] 12/16/18 at | | | | | | | 1239, Until 12/17/18 at 0013, | | | | | | | severe pain | | | | | | + +-------+ +-------+---+---+ + +---+ | | | + +---+ | oxyCODONE (immediate release) | | | (ROXICODONE) tablet 1 dose, | | | Starting [facility] 12/16/18 at 1357, | | | Until Adri[facility] 12/16/18 at 1359 | | + +---+ | | | + +---+ + +-------+ +---------+---+---+ | promethazine (PHENERGAN) | Given | 12/16/19 | 6.25 mg | | | | injection 6.25-12.5 mg 6.25-12.5 | | 19 2:48 | | | | | mg, intravenous, POSTPROCEDURE | | PM PST | | | | | PRN, 1 dose, Starting [facility] 12/16/18 | | | | | | | at 0831, Until Adriana 12/16/18 at | | | | | | | 1448, nausea/vomiting, 2nd line | | | | | | + +-------+ +---------+---+---+ + +---+ | | | + +---+ | promethazine (PHENERGAN) | | | injection 1 dose, Starting [facility] | | | 12/16/18 at 1446, Until Adri[facility] | | | 12/16/18 at 1448 | | + +---+ | | | + +---+ documented in this encounter
--- OUTSIDE RECORDS SUMMARY | ~2019-09-04 | XMS | Encounter Summary ---
Demographics + + + | Address | [address] | | | [place] [address] | + + + | Home Phone | | + + + | Preferred Language | Unknown | + + + | Marital Status | | + + + | Yarsanism Affiliation | CAT | + + + | Race | White | + + + | Ethnic Group | Not or | + + + Author + + + | Author | [facility] | + + + | Organization | [facility] | + + + | Address | Unknown | + + + | Phone | Unavailable | + + + Support + + +---------+ + | Name | Relationship | Address | Phone | + + +---------+ + | Ranjana Shell | ECON | Unknown | | + + +---------+ + Care Team Providers + +------+ + | Care Special Technical Operations Officer Name | Role | Phone | + +------+ + | Shwetha JosephP | PCP | | + +------+ + Encounter Details +--------+ + + + + | Date | Type | Department | Care Team | Description | +--------+ + + + + | 01/03/ | Telephone | Plastic and | Corine Olguin, | | | 2019 | | Reconstructive | [address] | | | | | Surgery at [facility] [address] | | | | | [address] | [place], [place] | | | | | Mailcode: [place] | [address] | | | | | [facility] | [phone] | | | | | and Healing, | | | | | | Building [address], | | | | | | Floor [place], [place] | | | | | | [address] | | | | | | [phone] | | | +--------+ + + + [...] [address] | | | | | | [place] | | | | | | [address] | | | | | | [phone] | | | | | | | | +--------+---------+ + + + documented as of this encounter Visit Diagnoses Not on filedocumented in this encounter"
--- OUTSIDE RECORDS SUMMARY | ~2019-09-04 | XMS | Encounter Summary ---
Demographics + + + | Address | [address] | | | [place] [address] | + + + | Home Phone | | + + + | Preferred Language | Unknown | + + + | Marital Status | | + + + | Bahai Affiliation | CAT | + + + | Race | White | + + + | Ethnic Group | Not or | + + + Author + + + | Author | [facility] | + + + | Organization | [facility] | + + + | Address | Unknown | + + + | Phone | Unavailable | + + + Support + + +---------+ + | Name | Relationship | Address | Phone | + + +---------+ + | Ranjana Shell | ECON | Unknown | | + + +---------+ + Care Team Providers + +------+ + | Care Rocket Assembly Operator Name | Role | Phone | [...] ABDOMINOPLASTY WITH | | | | Rd [address] | [address] | [facility] | | | | [facility] | [place], [place] | | | | | Surgery Admitting | [address] | | | | | Desk Located on the | [phone] | | | | | 4th floor, Room | | | | | | [address] [place], [place] | | | | | | [address] | | | +--------+---------+ + + + [...] 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 Call our office immediately [...] emergency or think you may need [facility] care. POSTOPERATIVE INSTRUCTIONS DOCUMENT DRAIN OUTPUT: [...] should seek medical attention and/or contact the [facility] of Surgical Oncology at ([phone]). After normal business hours, please call the [facility] logging tractor operator at [phone] and ask for the "Gold Surgery"resident research environmental engineer. 2. You may shower, however, do not [...] juice, and warm liquids. You may take pglo-rss-ljzmsbg fiber supplements. (i.e. Metamucil or Citrucel) Walking [...] may receive a patient satisfaction survey from "[employer]". We sameera carrillo appreciate your feedback on [...] | 2019 | Visit | | [address] [facility] | | | | | | [address] | | | | | | [place], [place] | | | | | | [address] | | | | | | [phone] | | | | | | | [...] Attending | | Surgeon: Corine Olguin MD Navigation Officer(s): Selma Gloria MD | | Anesthesia: General endotracheal tube anesthesia.Anesthesiologist: Gallito Arango, | | MDPreoperative Diagnoses: 1. Symptomatic lipodystrophy.2. Diabetes mellitus.3. | | Hypertension.4. Gastroesophageal reflex disease.5. Arthritis.6. Body mass index of | | 33.66.Postoperative Diagnoses: 1. Symptomatic lipodystrophy.2. Diabetes mellitus.3. | | Hypertension.4. Gastroesophageal reflex disease.5. Arthritis.6. Body mass index of | | 33.66.Procedure: 1. Rhwil-sj-Lfw abdominoplasty.2. Wedge monsplasty.3. Abdominal wall | | liposuction.Findings: Total weight of tissue removed from the anterior abdominal wall | | was 4686 g. Total amount of aspirate obtained from the abdominal wall was 3500 | | mL.Pathology: None.Intravenous Fluids: 1300 mL crystalloid.Urine Output: None, no | | Nieto.Estimated Blood Loss: 250 mL.Drains: Two 19-Comoran Bk drains to the anterior | | abdominal wall with 1 drain along each gutter and one 15-Comoran Bk drain along the | | midline.Complications: [...] a 2 cm rectus diastasis. Therefore, a Lbeyr-fx-Gil abdominoplasty, | | wedge monsplasty, and trunk [...] suture in a | | buried interrupted fslznu-lx-hrsrv fashion. Two 19-Comoran Bk drains were then placed | | in the anterior abdominal wall with one drain along each gutter, and one 15-Comoran | | Bk drain was placed in [...] 12/16/2018 19:23:55DT: 12/16/2018 20:19:22Job #: | | [id number] | |informed of the intraoperative findings. | | | |Corine Olguin MD | |SC/MODL | | | | | | /[id number] | + + CAPILLARY BLOOD GLUCOSE (NO [...] [facility] | [address] | [place], [place] | | | [facility] | [address] | [address] | | | TESTS | | | [...] [facility] | [address] | [place], [place] | | | [facility] | [address] | [address] | | | TESTS | | | [...] [facility] | [address] | [place], [place] | | | [facility] [place] [facility] | [address] | [address] | | | TESTS | | | [...] PST | | | | | Starting [facility] 12/16/18 at 0718, | | | | | | | Until [facility] 12/16/18 at 0730 | | | | [...] PST | | | | | Starting [facility] 12/16/18 at 0718, | | | | | | | Until [facility] 12/16/18 at 0729 | | | | [...] PRN, 1 | | | dose, Starting [facility] 12/16/18 at | | | 0831, Until Thu12/17/18 at 0013, | | | nausea/vomiting due to | | | dehydration | | + +---+ | | | + +---+ | lactated Ringers IV 500 mL, | | | intravenous, POSTPROCEDURE PRN, 1 | | | dose, Starting [facility] 12/16/18 at | | | 0831, Until [...] intravenous, POSTPROCEDURE PRN, | | | Starting [facility] 12/16/18 at 0831, | | | Until [...] | | | | at 0831, Until [facility] 12/16/18 at | | | | | [...]
--- OUTSIDE RECORDS SUMMARY | ~2019-09-04 | XMS | Encounter Summary ---
Demographics + + + | Address | [address] | | | [place] [address] | + + + | Home Phone | | + + + | Preferred Language | Unknown | + + + | Marital Status | | + + + | Yazidi Affiliation | CAT | + + + | Race | White | + + + | Ethnic Group | Not or | + + + Author + + + | Author | [facility] | + + + | Organization | [facility] | + + + | Address | Unknown | + + + | Phone | Unavailable | + + + Support + + +---------+ + | Name | Relationship | Address | Phone | + + +---------+ + | Ranjana Shell | ECON | Unknown | | + + +---------+ + Care Team Providers + +------+ + | Care Adult Specialist Name | Role | Phone | + +------+ + | Shwetha JosephP | PCP | | + +------+ + Reason for Visit +--------+ + | Reason | Comments | +--------+ + | Other | | +--------+ + Encounter Details +--------+ + + + + | Date | Type | Department | Care Team | Description | +--------+ + + + + | 12/27/ | Telephone | Plastic and | Corine Olguin, | Other | | 2019 | | Reconstructive | [address] | | | | | Surgery at [facility] [address] | [address] | | | | | [address] | [place], [place] | | | | | Mailcode: [facility] | [address] | | | | | [facility] | [phone] | | | | | and Healing, | | | | | | [facility] | | | | | | [place], [place] | | | | | | [address] | | | | | | [phone] | | | +--------+ + + + [...] Rd | | | | | | [place], [place] | | | | | | [address] | | | | | | [phone] | | | | | | | | +--------+---------+ + + + documented as of this encounter Visit Diagnoses Not on filedocumented in this encounter"
--- OUTSIDE RECORDS SUMMARY | ~2019-09-04 | XMS | Encounter Summary ---
Demographics + + + | Address | [address] | | | [place] [address] | + + + | Home Phone | | + + + | Preferred Language | Unknown | + + + | Marital Status | | + + + | Restoration Affiliation | CAT | + + + | Race | White | + + + | Ethnic Group | Not or | + + + Author + + + | Author | [facility] | + + + | Organization | [facility] | + + + | Address | Unknown | + + + | Phone | Unavailable | + + + Support + + +---------+ + | Name | Relationship | Address | Phone | + + +---------+ + | Ranjana Shell | ECON | Unknown | | + + +---------+ + Care Team Providers + +------+ + | Care Netezza Developer Name | Role | Phone | + +------+ + | Shwetha Joseph GLAZING DEPARTMENT SUPERVISOR | PCP | | + +------+ + Reason for Visit +--------+ + | Reason | Comments | +--------+ + | Other | | +--------+ + Encounter Details +--------+ + + + + | Date | Type | Department | Care Team | Description | +--------+ + + + + | 01/04/ | Telephone | Preoperative | Ktahy Olivas, | Other | | 2019 | | Medicine Clinic at | GLAZING DEPARTMENT SUPERVISOR [address] | | | | | [address] 4th Floor Day | [place], [place] | | | | | Stay [address] [facility] | [address] | | | | | [address] | [phone] | | | | | Mailcode: [facility] | | | | | | [address]fer | | | | | | [address] [place], [place] | | | | | | [address] | | | | | | [phone] | | | +--------+ + + + [...] [address] | | | | | | [place], [place] | | | | | | [address] | | | | | | [phone] | | | | | | | | +--------+---------+ + + + documented as of this encounter Visit Diagnoses Not on filedocumented in this encounter"
--- OUTSIDE RECORDS SUMMARY | ~2019-09-04 | XMS | Encounter Summary ---
Demographics + + + | Address | [address] | | | [place] [address] | + + + | Home Phone | | + + + | Preferred Language | Unknown | + + + | Marital Status | | + + + | Faith Affiliation | CAT | + + + | Race | White | + + + | Ethnic Group | Not or | + + + Author + + + | Author | [facility] | + + + | Organization | [facility] | + + + | Address | Unknown | + + + | Phone | Unavailable | + + + Support + + +---------+ + | Name | Relationship | Address | Phone | + + +---------+ + | Ranjana Shell | ECON | Unknown | | + + +---------+ + Care Team Providers + +------+ + | Care Pocket Closer Name | Role | Phone | + +------+ + | Shwetha Joseph | PCP | | + +------+ + Reason for Visit + + + | Reason | Comments | + + + | Postoperative | drains removal | | Questions | | + + + Encounter Details +--------+ + + + + | Date | Type | Department | Care Team | Description | +--------+ + + + + | 01/14/ | Telephone | Plastic and | Corine Olguin, | Postoperative | | 2019 | | Reconstructive | [address] | Questions (drains | | | | Surgery at [facility] [address] | [address] | removal) | | | | [address] | [place], [place] | | | | | Mailcode: CH5P | [address] | | | | | [facility] | [phone] | | | | | and Healing, | | | | | | Building | | | | | | Floor [place], [place] | | | | | | [address] | | | | | | [phone] | | | +--------+ + + + [...] Rd | | | | | | [place], [place] | | | | | | [address] | | | | | | [phone] | | | | | | | | +--------+---------+ + + + documented as of this encounter Visit Diagnoses Not on filedocumented in this encounter"
--- OUTSIDE RECORDS SUMMARY | ~2019-09-04 | XMS | Encounter Summary ---
Demographics + + + | Address | [address] | | | [place] [address] | + + + | Home Phone | | + + + | Preferred Language | Unknown | + + + | Marital Status | | + + + | Restorationist Affiliation | CAT | + + + | Race | White | + + + | Ethnic Group | Not or | + + + Author + + + | Author | [facility] | + + + | Organization | [facility] | + + + | Address | Unknown | + + + | Phone | Unavailable | + + + Support + + +---------+ + | Name | Relationship | Address | Phone | + + +---------+ + | Ranjana Shell | ECON | Unknown | | + + +---------+ + Care Team Providers + +------+ + | Care Tipple Engineer Name | Role | Phone | + [...] | | | | | Surgery at [facility] [address] | | | | | [address] | [place], [place] | | | | | Mailcode: [place] | [address] | | | | | [facility] | [phone] | | | | | and Healing, | | | | | | Building [address], | | | | | | Floor [place], [place] | | | | | | [address] | | | | | | [phone] | | | +--------+ + + + [...] Rd | | | | | | [place] | | | | | | [address] | | | | | | [phone] | | | | | | | | +--------+---------+ + + + documented as of this encounter Visit Diagnoses Not on filedocumented in this encounter"
--- OUTSIDE RECORDS SUMMARY | ~2019-09-04 | XMS | Encounter Summary ---
Demographics + + + | Address | [address] | | | [place] [address] | + + + | Home Phone [...] Team Providers + +------+ + | Care Chemical Instrumentation Officer Name | Role | Phone | [...] +--------+--------+ + + + + Encounter Details +--------+ + + + + | Date | Type | Department | Care Team | Description | +--------+ + + + + | 12/16/ | Anesthesia | 4N INTRA OP [address] | [place], | | | 2019 | Event | [address] | Blake Wooten MD | | | | | [facility] | [address] | | | | | [facility] | [place], | | | | | Surgery Admitting | [place] [address] | | | | | Desk Located on the | [phone] | | | | | 4th floor, Room | | | | | | [address], [place] | | | | | | [address] | | | +--------+ + + + + Anesthesia Record + + + + + | Procedure Name | Responsible | Anesthesia Start | Anesthesia Stop Time | | | Anesthesiologist | Time | | + + + + + | ANN | Adriane Arango MD | 12/16/18 0734 | 12/16/18 1306 | | ABDOMINOPLASTY WITH | | | | | MONSPLASTY | | | | | (Bilateral Abdomen) | | | | + + + + + +----+---+ + + | Da | T | Event | Comment | | te | i | | | | | m | | | | | e | | | +----+---+ + + | 01 | 0 | Eq Check | Anesthesia machine checked Equipment verified | | /1 | 7 | | | | 7/ | 0 | | | | 20 | 1 | | | | 19 | | | | +----+---+ + + | | 0 | | | | | 7 | | | | | 1 | | | | | 7 | | | +----+---+ + + | | 0 | Pt. Check | Prior to anesthesia start, pt. Identified, examined, chart | | | 7 | | reviewed, PARQ held, anesthetic plan made or approved by | | | 1 | | attending anesthesiologist. NPO status confirmed as appropriate | | | 7 | | for procedure Preoperative evaluation: unchanged | +----+---+ + + | | 0 | An Start | | | | 7 | | | | | 3 | | | | | 4 | | | +----+---+ + + | | 0 | An Start | | | | 7 | Data | | | | 3 | | | | | 6 | | | +----+---+ + + | | 0 | Vitals | Monitors applied Vital signs checked Patient ready for anesthesia | | | 7 | Checked | | | | 3 | | | | | 9 | | | +----+---+ + + | | 0 | ETT | | | | 7 | | | | | 4 | | | | | 1 | | | +----+---+ + + | | 0 | Ready | | | | 7 | | | | | 4 | | | | | 8 | | | +----+---+ + + | | 0 | Abx | | | | 8 | Administere | | | | 0 | d | | | | 0 | | | +----+---+ + + | | 0 | Timeout | | | | 8 | | | | | 0 | | | | | 6 | | | +----+---+ + + | | 0 | Incision | | | | 8 | | | | | 1 | | | | | 5 | | | +----+---+ + + | | 0 | Quick Note | Began instilling tumnescent solution with epinephrine. Spikes in | | | 8 | | BP and HR noted. | | | 3 | | | | | 1 | | | +----+---+ + + | | 1 | Quick Note | Arms and hands checked for pressure points: none found. Arm | | | 0 | | position gently adjusted. Legs and feet checked under surgical | | | 0 | | drapes/equiptment. Mouth, lips, nose, and eyes checked for | | | 6 | | pressure points: none found. Head position gently adjusted to | | | | | decrease risk of pressure alopecia. | +----+---+ + + | | 1 | Local | | | | 0 | Anesthetic | | | | 2 | by Surgeon | | | | 4 | | | +----+---+ + + | | 1 | Surgery end | | | | 2 | | | | | 5 | | | | | 4 | | | +----+---+ + + | | 1 | An Extubate | Neuromuscular function Intact. Pharynx suctioned. Patient obeys | | | 2 | | commands. Adequate pulmonary mechanics. | | | 5 | | | | | 8 | | | +----+---+ + + | | 1 | an stop | | | | 3 | data | | | | 0 | | | | | 0 | | | +----+---+ + + | | 1 | PACU Rpt | | | | 3 | Given | | | | 0 | | | | | 4 | | | +----+---+ + + | | 1 | Anesthesia | | | | 3 | End | | | | 0 | | | | | 6 | | | +----+---+ + + +------+ | Meds | +------+ + + + | Name | Total | + + + | fentaNYL | 200 mcg | + + + | lidocaine 2% | 60 mg | + + + | propofol | 160 mg | + + + | rocuronium | 130 mg | + + + | dexamethasone | 4 mg | + + + | ondansetron | 4 mg | + + + | glycopyrrolate | 0.4 mg | + + + | neostigmine | 3 mg | + + + | ceFAZolin (ANCEF) injection 2 g | 4,000 mg | + + + | propofol (DIPRIVAN) 200 mg | 422,380 mcg | + + + | succinylcholine | 100 mg | + + + | HYDROmorphone | 1 mg | + + + | albuterol inhaler | 32 puff | + + + | lactated Ringers IV | 1,400 mL | + + + + + | Name | + + | O2 FR Avance (Total Liters) | + + | Air FR Avance (l/min) | + + | Insp Sevo | + + | Et Sevo | + + | Insp N2O % | + + + + | No blood administrations on file. | + + +--------+ + + + | Type | Details | Placement | Removal | +--------+ + + + | Incisi | 12/16/18; abdomen | 12/16/18 0000 by | | | on | | Lolita Monroy RN | | +--------+ + + + | Drain | 12/16/18; Bk (15 fr); Lower, | 12/16/18 0000 by | | | | Midline; abdomen; 2 | Lolita Monroy RN | | +--------+ + + + | Drain | 12/16/18; Bk (19 fr); Right; | 12/16/18 0000 by | | | | Lower; abdomen; 1 | Lolita Monroy RN | | +--------+ + + + | Drain | 12/16/18; Bk (19 fr); Left; | 12/16/18 0000 by | | | | Lower; abdomen; 3 | Lolita Monroy RN | | +--------+ + + + | Periph | 12/16/18; 716; sindhu CHONG; Right; | 12/16/18716 by | 12/16/181756 by | | richard | Dorsal; Wrist; 20 g; Positive; | Blake Wooten | Nasrin Trevino RN | | IV | 12/16/18; 1756; Discharge | MD Pavel | | +--------+ + + + | ETT | 12/16/18; 0741 (created via | 12/16/18 0741 by | 12/16/18 1300 by | | | procedure documentation); | Blake Wooten | Blake Wooten | | | Endotracheal Tube; 7; Oral; | MD Pavel | MD Pavel | | | Cuffed; 12/16/18; 1300 | | | +--------+ + + + documented in this encounter Social History + +-------+ +--------+------+ | Tobacco [...] | | 2019 | Visit | | [address] | | | | | | [address] | | | | | | [place], [place] | | | | | | [address] | | | | | | [phone] | | | | | | | | +--------+---------+ + + + documented as of this encounter Procedures + +--------+ + + + | Procedure Name | Priori | Date/Time | Associated Diagnosis | Comments | | | ty | | | | + +--------+ + + + | ANE ETT | Routin | 12/16/2018 | | Results for this | | | e | 8:00 AM | | procedure are in the | | | | PST | | results section. | + +--------+ + + + documented in this encounter Results ANE ETT (12/16/2018 8:00 AM PST) + + + | Narrative | Performed At | + + + | Blake Zhao MD 12/16/2018 8:06 AM Procedure | | | Location Performed: [place] , Mask Ventilation Grade 1 - Ventilated by | | | mask Intubation Blade type: Sabrina , Blade size: 3, | | | Atraumatic laryngoscopy: Atraumatic Laryngoscopy, Intubation | | | adjuncts: Stylet used , Laryngoscopic view: Grade I, Fiberoptics | | | used: N/A , Number of Attempts: 1, Positive for EtCO2: Yes, Breath | | | sounds: Bilateral and equal ETT ETT Size: 7 ETT secured | | | with: adhesive tape Depth at Teeth: 21 Cm Narrative | | | Attending: ADRIANE ARANGO Performed by Resident PAVEL, | | | BLAKE Harry BMV, stylet used for prior difficult airway. | | | Successful DL and placement of 7.0 tube. No desaturation. Definative | | | airway followed by patient cough and obstructive capnography | | | pattern. Albuterol instilled. Patient also coughed up small amount | | | of stomach contents after cuff inflated. Suctioned successfully. | | | | | + + + documented in this encounter Visit Diagnoses Not on filedocumented in this encounter Administered Medications + +--------+ +---------+------+------+ | Medication Order | MAR | Action | Dose | Rate | Site | | | Action | Date | | | | + +--------+ +---------+------+------+ | albuterol (PROVENTIL, VENTOLIN) | Given | 12/16/19 | 8 puffs | | | | 90 mcg/actuation inhaler | | 19 12:31 | | | | | INTRAPROCEDURE PRN, Starting Adriana | | PM PST | | | | | 12/16/18 at 1231, Until Adriana | | | | | | | 12/16/18 at 1300 | | | | | | + +--------+ +---------+------+------+ +-------+ +---------+---+---+ | Given | 12/16/19 | 8 puffs | | | | | 19 7:47 | | | | | | AM PST | | | | +-------+ +---------+---+---+ | Given | 12/16/19 | 8 puffs | | | | | 19 7:46 | | | | | | AM PST | | | | +-------+ +---------+---+---+ +---+---+ | | | +---+---+ + +-------+ + +---+---+ | ceFAZolin (ANCEF) injection 2 g | Given | 12/16/19 | 2,000 mg | | | | 2 g, intravenous, PREPROCEDURE | | 19 12:00 | | | | | ONCE, 1 dose, Starting Adriana | | PM PST | | | | | 12/16/18 at 0616, Until Adriana | | | | | | | 12/16/18 at 1200 | | | | | | + +-------+ + +---+---+ +-------+ + +---+---+ | Given | 12/16/19 | 2,000 mg | | | | | 19 8:00 | | | | | | AM PST | | | | +-------+ + +---+---+ +---+---+ | | | +---+---+ + +-------+ +------+---+---+ | dexamethasone (DECADRON) | Given | 12/16/19 | 4 mg | | | | injection INTRAPROCEDURE PRN, | | 19 8:22 | | | | | Starting Adriana 12/16/18 at 0822, | | AM PST | | | | | Until Adriana 12/16/18 at 1300 | | | | | | + +-------+ +------+---+---+ +---+---+ | | | +---+---+ + +-------+ +--------+---+---+ | fentaNYL (SUBLIMAZE) injection | Given | 12/16/19 | 50 mcg | | | | INTRAPROCEDURE PRN, Starting Adriana | | 19 12:23 | | | | | 12/16/18 at 0737, Until Adriana | | PM PST | | | | | 12/16/18 at 1300 | | | | | | + +-------+ +--------+---+---+ +-------+ +--------+---+---+ | Given | 12/16/19 | 50 mcg | | | | | 19 8:56 | | | | | | AM PST | | | | +-------+ +--------+---+---+ | Given | 12/16/19 | 50 mcg | | | | | 19 8:15 | | | | | | AM PST | | | | +-------+ +--------+---+---+ +---+---+ | | | +---+---+ + +-------+ +--------+---+---+ | glycopyrrolate (ROBINUL) | Given | 12/16/19 | 0.2 mg | | | | injection intravenous, | | 19 12:01 | | | | | INTRAPROCEDURE PRN, Starting Adriana | | PM PST | | | | | 12/16/18 at 1200, Until Adriana | | | | | | | 12/16/18 at 1300 | | | | | | + +-------+ +--------+---+---+ +-------+ +--------+---+---+ | Given | 12/16/19 | 0.2 mg | | | | | 19 12:00 | | | | | | PM PST | | | | +-------+ +--------+---+---+ +---+---+ | | | +---+---+ + +-------+ +--------+---+---+ | HYDROmorphone (DILAUDID) | Given | 12/16/19 | 0.2 mg | | | | injection INTRAPROCEDURE PRN, | | 19 12:03 | | | | | Starting Adriana 12/16/18 at 0820, | | PM PST | | | | | Until Adriana 12/16/18 at 1300 | | | | | | + +-------+ +--------+---+---+ +-------+ +--------+---+---+ | Given | 12/16/19 | 0.2 mg | | | | | 19 11:45 | | | | | | AM PST | | | | +-------+ +--------+---+---+ | Given | 12/16/19 | 0.2 mg | | | | | 19 9:46 | | | | | | AM PST | | | | +-------+ +--------+---+---+ +---+---+ | | | +---+---+ + + + +---+---+---+ | lactated Ringers [...] | | | | + + +---+---+---+ +---+---+ | | | +---+---+ + +-------+ +-------+---+---+ | lidocaine (XYLOCAINE MPF) 2 % | Given | 12/16/19 | 60 mg | | | | (20 mg/mL) injection | | 19 7:38 | | | | | INTRAPROCEDURE PRN, Starting Adriana | | AM PST | | | | | 12/16/18 at 0738, Until Adriana | | | | | | | 12/16/18 at 1300 | | | | | | + +-------+ +-------+---+---+ +---+---+ | | | +---+---+ + +-------+ +------+---+---+ | neostigmine (PROSTIGMIN) | Given | 12/16/19 | 1 mg | | | | injection intravenous, | | 19 12:03 | | | | | INTRAPROCEDURE PRN, Starting Adriana | | PM PST | | | | | 12/16/18 at 1203, Until Adriana | | | | | | | 12/16/18 at 1300 | | | | | | + +-------+ +------+---+---+ +-------+ +------+---+---+ | Given | 12/16/19 | 1 mg | | | | | 19 12:02 | | | | | | PM PST | | | | +-------+ +------+---+---+ | Given | 12/16/19 | 1 mg | | | | | 19 12:01 | | | | | | PM PST | | | | +-------+ +------+---+---+ +---+---+ | | | +---+---+ + +-------+ +------+---+---+ | ondansetron (ZOFRAN) injection | Given | 12/16/19 | 4 mg | | | | INTRAPROCEDURE PRN, Starting Adriana | | 19 11:49 | | | | | 12/16/18 at 1149, Until Adriana | | AM PST | | | | | 12/16/18 at 1300 | | | | | | + +-------+ +------+---+---+ +---+---+ | | | +---+---+ + +---------+ + +---+---+ | propofol (DIPRIVAN) 200 mg | New Bag | 12/16/19 | 20 | | | | INTRAPROCEDURE CONTINUOUS PRN, | | 19 8:08 | mcg/kg/m | | | | Starting Adriana 12/16/18 at 0808, | | AM PST | in | | | | Until Adriana 12/16/18 at 1300 | | | | | | + +---------+ + +---+---+ +---+---+ | | | +---+---+ + +-------+ +-------+---+---+ | propofol (DIPRIVAN) injection | Given | 12/16/19 | 20 mg | | | | INTRAPROCEDURE PRN, Starting Adriana | | 19 8:15 | | | | | 12/16/18 at 0739, Until Adriana | | AM PST | | | | | 12/16/18 at 1300 | | | | | | + +-------+ +-------+---+---+ +-------+ +--------+---+---+ | Given | 12/16/19 | 140 mg | | | | | 19 7:39 | | | | | | AM PST | | | | +-------+ +--------+---+---+ +---+---+ | | | +---+---+ + +-------+ +-------+---+---+ | rocuronium (ZEMURON) injection | Given | 12/16/19 | 10 mg | | | | INTRAPROCEDURE PRN, Starting Adriana | | 19 11:27 | | | | | 12/16/18 at 0751, Until Adriana | | AM PST | | | | | 12/16/18 at 1300 | | | | | | + +-------+ +-------+---+---+ +-------+ +-------+---+---+ | Given | 12/16/19 | 10 mg | | | | | 19 10:50 | | | | | | AM PST | | | | +-------+ +-------+---+---+ | Given | 12/16/19 | 10 mg | | | | | 19 10:20 | | | | | | AM PST | | | | +-------+ +-------+---+---+ +---+---+ | | | +---+---+ + +-------+ +--------+---+---+ | succinylcholine (ANECTINE) | Given | 12/16/19 | 100 mg | | | | injection INTRAPROCEDURE PRN, | | 19 7:39 | | | | | Starting Adriana 12/16/18 at 0739, | | AM PST | | | | | Until Adriana 12/16/18 at 1300 | | | | | | + +-------+ +--------+---+---+ +---+---+ | | | +---+---+ documented in this encounter"
--- OUTSIDE RECORDS SUMMARY | ~2019-09-04 | XMS | Encounter Summary ---
Demographics + + + | Address | [address] | | | [place] [address] | + + + | Home Phone | | + + + | Preferred Language | Unknown | + + + | Marital Status | | + + + | Orthodoxy Affiliation | CAT | + + + | Race | White | + + + | Ethnic Group | Not or | + + + Author + + + | Author | [facility] | + + + | Organization | [facility] | + + + | Address | Unknown | + + + | Phone | Unavailable | + + + Support + + +---------+ + | Name | Relationship | Address | Phone | + + +---------+ + | Ranjana Shell | ECON | Unknown | | + + +---------+ + Care Team Providers + +------+ + | Care Electrical/Instrument Technician Name | Role | Phone | + +------+ + | Shwetha JosephP | PCP | | + +------+ + Reason for Visit +--------+ + | Reason | Comments | +--------+ + | Other | | +--------+ + Encounter Details +--------+ + + + + | Date | Type | Department | Care Team | Description | +--------+ + + + + | 02/02/ | Telephone | Plastic and | Corine Olguin, | Other | | 2019 | | Reconstructive | [address] | | | | | Surgery at [facility] [address] | | | | | [place] [address] | [place], [place] | | | | | Mailcode: [facility] | [address] | | | | | [facility] | [phone] | | | | | and Healing, | | | | | | [facility] | | | | | | [place], [place] | | | | | | [address] | | | | | | [phone] | | | +--------+ + + + [...] [address] | | | | | | [place], [place] | | | | | | [address] | | | | | | [phone] | | | | | | | | +--------+---------+ + + + documented as of this encounter Visit Diagnoses Not on filedocumented in this encounter"
--- OUTSIDE RECORDS SUMMARY | ~2019-09-04 | XMS | Clinical Summary ---
Demographics + + + | Address | [address] | | | [place] [address] | + + + | Home Phone | | + + + | Preferred Language | Unknown | + + + | Marital Status | | + + + | Jainism Affiliation | 1041 | + + + | Race | Unknown | + + + | Ethnic Group | Unknown | + + + Author + + + | Author | [facility] (Historical as of | | | 07-16-19) | + + + | Organization | [facility] ([facility] | | | 07-16-19) | + + + | Address | Unknown | + + + | Phone | Unavailable | + + + Support + + + + + | Name | Relationship | Address | Phone | + + + + + | Mora,Jacinta | ECON | NONE | | | | | [place] [address] | | + + + + + Care Team Providers + +------+ + | Care Paleology Professor Name | Role | Phone | + +------+ + | Shwetha Joseph | PP | | + +------+ + Allergies + + + + + + | Active Allergy | Reactions | Severity | Noted | Comments | | | | | Date | | + + + + + + | Hydrochlorothiazide | Other (See Comments) | Medium | 06/08/20 | choking | | | | | 17 | | + + + + + + | Lisinopril | Other (See Comments) | High | 06/08/20 | choking | | | | | 17 | | + + + + + + | Amlodipine | Anaphylaxis | High | 07/14/20 | | | | | | 17 | | + + + + + + Current Medications + + +--------+---------+------+------+-------+ | Prescription | Sig. | Disp. | Refills | Star | End | Statu | | | | | | t | Date | s | | | | | | Date | | | + + +--------+---------+------+------+-------+ | methocarbamol | Take 1 tablet by | 30 | 0 | 08/0 | | Activ | | (ROBAXIN) 750 MG | mouth 3 (three) | tablet | | 8/20 | | e | | tablet | times daily. | | | 17 | | | + + +--------+---------+------+------+-------+ | | Take 1-2 tablets by | 60 | 0 | 08/0 | | Activ | | oxyCODONE-acetaminop | mouth every 6 (six) | tablet | | 8/20 | | e | | hen (PERCOCET) 5-325 | hours as needed for | | | 17 | | | | MG per tablet | Pain. | | | | | | + + +--------+---------+------+------+-------+ | LACTULOSE PO | Take by mouth. | | | | | Activ | | | | | | | | e | + + +--------+---------+------+------+-------+ Active Problems + + + | Problem | Noted Date | + + + | Lumbar compression fracture | 06/08/2017 | + + + Social History + +-------+ [...] + +---------+ + | Alcohol Use | Drinks/We | oz/Week | Comments | | | ek | | | + + +---------+ + | No | | | | + + +---------+ + + + + | Sex Assigned at | Date Recorded | | | | + + + | Not on file | | + + + Last Filed Vital Signs + + + + | Vital Sign | Reading | Time Taken | + + + + | Blood Pressure | 128/84 | 03/26/2018 11:37 AM PDT | + + + + | Pulse | 85 | 03/26/2018 11:37 AM PDT | + + + + | Temperature | - | - | + + + + | Respiratory Rate | - | - | + + + + | Oxygen Saturation | - | - | + + + + | Inhaled Oxygen | - | - | | Concentration | | | + + + + | Weight | 81.6 kg (180 lb) | 03/26/2018 11:37 AM PDT | + + + + | Height | 162.6 cm (5' 4") | 03/26/2018 11:37 AM PDT | + + + + | Body Mass Index | 30.9 | 03/26/2018 11:37 AM PDT | + + + + Plan of Treatment + + + + + | Health Maintenance | Due Date | Last Done | Comments | + + + + + | Cervical Cancer | | | | | Screening (Pap) | 5 | | | + + + + + | Breast Cancer | | | | | Screening | 5 | | | | (Mammogram) | | | | + + + + + | Colon Cancer | | | | | Screening | 5 | | | | (Colonoscopy) | | | | + + + + + | Vaccine: Zoster (1 | | | | | of 2) | 5 | | | + + + + + | Vaccine: Influenza | | 12/28/2013 | | | (#1) | 9 | | | + + + + + | Vaccine: | | 04/12/2013 | | | Dtap/Tdap/Td (2 - | 3 | | | | Td) | | | | + + + + + Results Not on filefrom Last 3 Months Insurance +---------+--------+ +------+-------+ + | Payer | Benefi | Subscriber | Type | Phone | Address | | | t Plan | ID | | | | | | / | | | | | | | Group | | | | | +---------+--------+ +------+-------+ + | [employer] | PREMER | [id number] | | | [address] [address] | | | A BLUE | 6 | | | [place] | | | CARD | | | | [phone] | +---------+--------+ +------+-------+ + + +--------+ +--------+ + + | Guarantor Name | Accoun | Relation to | Date | Phone | Billing Address | | | t Type | Patient | of | | | | | | | | | | + +--------+ +--------+ + + | MAYLIN MORA | Person | Self [birth year] Home: | [address] | | | al/Fam | | 1965 | [phone] [place] [address] | | | [place]itan | | | [phone] | | + +--------+ +--------+ + +
--- OUTSIDE RECORDS SUMMARY | ~2019-09-04 | XMS | Encounter Summary ---
Demographics + + + | Address | [address] | | | [place] [address] | + + + | Home Phone | | + + + | Preferred Language | Unknown | + + + | Marital Status | | + + + | Orthodox Affiliation | CAT | + + + | Race | White | + + + | Ethnic Group | Not or | + + + Author + + + | Author | [facility] | + + + | Organization | [facility] | + + + | Address | Unknown | + + + | Phone | Unavailable | + + + Support + + +---------+ + | Name | Relationship | Address | Phone | + + +---------+ + | Ranjana Shell | ECON | Unknown | | + + +---------+ + Care Team Providers + +------+ + | Care Aluminum Polisher Name | Role | Phone | + [...] | | | | | Surgery at [facility] [address] | | | | | [place] | [place], [place] | | | | | Mailcode: [facility] | [address] | | | | | [facility] | [phone] | | | | | and Healing, | | | | | | [facility] | | | | | | [place], [place] | | | | | | [address] | | | | | | [phone] | | | +--------+ + + + [...] [address] | | | | | | [place], [place] | | | | | | [address] | | | | | | [phone] | | | | | | | | +--------+---------+ + + + documented as of this encounter Visit Diagnoses Not on filedocumented in this encounter"
--- OUTSIDE RECORDS SUMMARY | ~2019-09-04 | XMS | Clinical Summary ---
Demographics + + + | Address | [address] | | | [place] [address] | + + + | Home Phone | | + + + | Preferred Language | Unknown | + + + | Marital Status | | + + + | Mormon Affiliation | CAT | + + + | Race | White | + + + | Ethnic Group | Not or | + + + Author + + + | Author | NON REVENUE LOCATIONS | + + + | Organization | NON REVENUE LOCATIONS | + + + | Address | Unknown | + + + | Phone | Unavailable | + + + Support + + +---------+ + | Name | Relationship | Address | Phone | + + +---------+ + | Ranjana Shell | ECON | Unknown | | + + +---------+ + Care Team Providers + +------+ + | Care Business Office Assistant Name | Role | Phone | + +------+ + | Shwetha JosephP | PCP | | + +------+ + Source Comments ARIN is fully live on both [facility] and [facility] Allergies + + + + + + | Active Allergy | Reactions | Severity | Noted | Comments | | | | | Date | | + + + + + + | Amlodipine | Anaphylaxis | High | 07/14/20 | | | | | | 17 | | + + + + + + | Carvedilol | Cough | Low | 08/07/20 | Coreg(carvedilol) | | | | | 15 | Note:cough, choking | | | | | | ; Type:Drug; | + + + + + + | Gabapentin | Unknown | | 02/01/20 | Chocking per | | | | | 19 | patient report | + + + + + + | Hydrochlorothiazide | Cough | Low | 09/06/20 | | | | | | 18 | | + + + + + + | Lisinopril | Cough | Low | 09/06/20 | | | | | | 18 | | + + + + + + Medications + + + +---------+------+------+-------+ | Medication | Sig | Dispensed | Refills | Star | End | Statu | | | | | | t | Date | s | | | | | | Date | | | + + + +---------+------+------+-------+ | furosemide 20 mg | Take 20 mg by mouth | | 0 | 08/01 | | Activ | | oral tablet | once daily in the | | | 08/19 | | e | | | morning. | | | 18 | | | + + + +---------+------+------+-------+ | omeprazole 20 mg | Take 20 mg by mouth | | 0 | | | Activ | | oral capsule,delayed | two times daily. | | | | | e | | release(/GEGE) | | | | | | | + + + +---------+------+------+-------+ | losartan 25 mg | Take 25 mg by mouth | | 0 | | | Activ | | oral tablet | as needed. | | | | | e | + + + +---------+------+------+-------+ | Lisdexamfetamine | Take 50 mg by mouth | | 0 | | | Activ | | (VYVANSE) 50 mg oral | once daily in the | | | | | e | | capsule | morning. | | | | | | + + + +---------+------+------+-------+ | acetaminophen 325 | Take 325 mg by mouth | | 0 | | | Activ | | mg oral tablet | every four hours as | | | | | e | | | needed. | | | | | | + + + +---------+------+------+-------+ | acetaminophen 500 | Take 2 tablets by | | 0 | 01/1 | | Activ | | mg oral tablet | mouth every six | | | 7/20 | | e | | | hours. | | | 19 | | | + + + +---------+------+------+-------+ | gabapentin 300 mg | Take 1 capsule by | 90 | 0 | 01/2 | | Activ | | oral | mouth three times | capsule | | 5 | | e | | capsuleIndications: | daily. | | | 19 | | | | Post-op pain | | | | | | | + + + +---------+------+------+-------+ | TRULICITY 1.5 | Inject 0.5 mL under | | 0 | 12/31 | | Activ | | mg/0.5 mL | the skin (SUBC) | | | 07/19 | | e | | subcutaneous pen | every seventy-two | | | 19 | | | | injector | hours as needed. | | | | | | + + + +---------+------+------+-------+ Active Problems + + + | Problem | Noted Date | + + + | Status post abdominoplasty | 02/01/2019 | + + + | Heart murmur | 09/13/2018 | + + + | Intertriginous dermatitis associated with moisture | 09/13/2018 | + + + | Bilateral leg edema | 09/13/2018 | + + + | Vertigo | 04/28/2017 | + + + + + | Overview: Overview: Not consistent with benign positional | | vertigo and may be tied in with an early Meniere's since she also | | has mild tinnitus | + + + + + | Obstructive chronic bronchitis with exacerbation | 09/22/2016 | + + + | Hyperlipidemia | 01/25/2016 | + + + | Type 2 diabetes mellitus without complication | 01/25/2016 | + + + | Chronic kidney disease, stage III (moderate) | 01/01/2015 | + + + | Incomplete tear of rotator cuff | 11/24/2014 | + + + + + | Overview: Overview: | | SURGERY SCHEDULED. | + + + + + | Sleep apnea | 03/29/2014 | + + + + + | Overview: Overview: | | Being followed by sleep specialistpj | | | | Dx Name changed by system update on 09/11/2017 | + + + + + | Allergic rhinitis | 08/12/2012 | + + + + + | Overview: Overview: | | Dx name changed by system update 08/21/2017 | + + + + + | Essential hypertension, benign | 08/12/2012 | + + + | Vitamin D deficiency | 08/12/2012 | + + + + + | Overview: Overview: | | Dx Name changed by system update on 09/11/2017 | + + +---------+ + | Obesity | 07/16/2012 | +---------+ + + + | Overview: Overview: | | BMI 36 | | | | Dx Name changed by system update on 09/11/2017 | + + Resolved Problems + + + + | Problem | Noted | Resolved | | | Date | Date | + + + + | 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 | | | | 18 | 9 | + + + + | Lumbar compression fracture | 06/08/20 | | | | 17 | 9 | + + + + | Pneumonia of left lung due to infectious organism | 09/22/20 | | | | 16 | 9 | + + + + | Parapneumonic effusion | 09/22/20 | | | | 16 | 9 | + + + + | Carpal tunnel syndrome | 11/24/20 | | | | 14 | 9 | + + + + Family History + + +------+ + | Medical History | Relation | Name | Comments | + + +------+ + | Cancer | Brother | | | + + +------+ + | Diabetes | Brother | | | + + +------+ + | Heart Disease | Father | | | + + +------+ + | Stroke | Maternal | | | | | Grandmoth | | | | | er | | | + + +------+ + | Diabetes | Mother | | | + + +------+ + | Cancer | Paternal | | | | | Grandfath | | | | | er | | | + + +------+ + + +------+ + + | Relation | Name | Status | Comments | + +------+ + + | Brother | | | | + +------+ + + | Father | | | | + +------+ + + | Maternal Grandmother | | | | + +------+ + + | Mother | | | | + +------+ + + | Paternal Grandfather | | | | + +------+ + + Social History + +-------+ +--------+------+ [...] recent travel history available. | + + Last Filed Vital Signs + + + + + | Vital Sign | Reading | Time Taken | Comments | + + + + + | Blood Pressure | 155/91 | 01/31/2019 12:57 PM | | | | | PST | | + + + + + | Pulse | 93 | [...] + + + | Oxygen Saturation | 97% [...] | | + + + + + Plan of Treatment +--------+---------+ + + + | Date | Type | Specialty | Care Team | Description | +--------+---------+ + + + | 02/05/ | Office | Plastic Surgery | Corine Olguin, | | | 2019 | Visit | | [address] | | | | | | [address] | | | | | | [place], [place] | | | | | | [address] | | | | | | [phone] | | | | | | | | +--------+---------+ + + + + + + + + | Health Maintenance | Due Date | Last Done | Comments | + + + + + | Pneumococcal | | 12/28/2013 | | | vaccination (2 of 3 | 5 | | | | - PCV13) | | | | + + + + + | Influenza (Flu) | 10/01/201 | 12/28/2013 | | | vaccination (#1) | 9 | | | + + + + + Results Not on filefrom Last 3 Months Insurance + +--------+ +--------+ + +------+ | Payer | Benefi | Subscriber | Effect | Phone | Address | Type | | | t Plan | ID | ramona | | | | | | / | | Dates | | | | | | Group | | | | | | + +--------+ +--------+ + +------+ | [employer] [place] | [employer]BS | [phone] | 11/30/19 | [phone] | [address] | PPO | | | [place] | x | 18-Pre | [address] | [address] | | | | IS | | sent | | [place], [place] | | | | | | | | [address] | | + +--------+ +--------+ + +------+ + +--------+ +--------+ + + | Guarantor Name | Accoun | Relation to | Date | Phone | Billing Address | | | t Type | Patient | of | | | | | | | | | | + +--------+ +--------+ + + | Anne-Marie Mora | Person | Self | [birth year] | [address] | | [place] | al/Theo | | 1965 | [phone] | [place] [address] | | | eitan | | | 3 (Home) | | | | | | | [phone] | | | | | | | 6 (Work) | | + +--------+ +--------+ + + Advance Directives + + + + + | Code Status | Date | Date | Comments | | | Activated | Inactivated | | + + + + + | Full Code | 12/16/2018 | 12/17/2018 | | | | 6:16 AM | 12:18 AM | | + + + + +
--- OUTSIDE RECORDS SUMMARY | ~2019-09-04 | XMS | Encounter Summary ---
Demographics + + + | Address | [address] | | | [place] [address] | + + + | Home Phone | | + + + | Preferred Language | Unknown | + + + | Marital Status | | + + + | Mandaeism Affiliation | CAT | + + + | Race | White | + + + | Ethnic Group | Not or | + + + Author + + + | Author | [facility] | + + + | Organization | [facility] | + + + | Address | Unknown | + + + | Phone | Unavailable | + + + Support + + +---------+ + | Name | Relationship | Address | Phone | + + +---------+ + | Ranjana Shell | ECON | Unknown | | + + +---------+ + Care Team Providers + +------+ + | Care Therapy Tech Name | Role | Phone | + [...] (drains | | | | Surgery at [facility] [address] | removal) | | | | [address] | [place], [place] | | | | | Mailcode: [id number] | [address] | | | | | [facility] | [phone] | | | | | and Healing, | | | | | | Building | | | | | | Floor [place], [place] | | | | | | [address] | | | | | | [phone] | | | +--------+ + + + [...] [address] | | | | | | [place], [place] | | | | | | [address] | | | | | | [phone] | | | | | | | | +--------+---------+ + + + documented as of this encounter Visit Diagnoses Not on filedocumented in this encounter"
--- OUTSIDE RECORDS SUMMARY | ~2019-09-04 | XMS | Encounter Summary ---
Demographics + + + | Address | [address] | | | [place] [address] | + + + | Home Phone | | + + + | Preferred Language | Unknown | + + + | Marital Status | | + + + | Mu-Ism Affiliation | CAT | + + + | Race | White | + + + | Ethnic Group | Not or | + + + Author + + + | Author | [facility] | + + + | Organization | [facility] | + + + | Address | Unknown | + + + | Phone | Unavailable | + + + Support + + +---------+ + | Name | Relationship | Address | Phone | + + +---------+ + | Ranjana Shell | ECON | Unknown | | + + +---------+ + Care Team Providers + +------+ + | Care Cooking Chef Name | Role | Phone | + +------+ + | Shwetha Joseph GLOVE CUFFER | PCP | | + +------+ + Reason for Referral PROC - Outpatient Surgery (Routine) +--------+--------+ + + + + | Status | Reason | Specialty | Diagnoses / | Referred By | Referred To | | | | | Procedures | Contact | Contact | +--------+--------+ + + + + | Closed | | Plastic | Diagnoses | Olguin, | Sharif, | | | | Surgery | Excessive | MD Corine | MD Corine | | | | | and | [address] | [address] | | | | | redundant | Jaylan Brito | [address] | | | | | skin and | Miesha Nielsen | [place], | | | | | subcutaneous | [facility], [place] | [place] | | | | | tissue | [address] | [phone] | | | | | Rash and | Phone: | Phone: | | | | | other | [phone] | [phone] | | | | | nonspecific | Fax: | Fax: | | | | | skin | [phone] | [phone] | | | | | eruption | | | | | | | Lipodystroph | | | | | | | y | | | | | | | Separation | | | | | | | of muscle | | | | | | | (nontraumati | | | | | | | c), other | | | | | | | site | | | | | | | Hnfch-nj-lcv | | | | | | | | | | | | | | abdominoplas | | | | | | | ty with | | | | | | | monsplasty | | | | | | | and trunk | | | | | | | liposuction | | | | | | | | | | | | | | | | | | | | | [address], | | | | | | | [address], | | | | | | | [address], [address] | | | | | | | L98.7 | | | | | | | E88.1 R21 | | | | | | | M62.08 | | | | | | | Procedures | | | | | | | REQUEST TO | | | | | | | SURGERY | | | | | | | DRY CHAIN PULLER | | | | | | | [place] EXC SKIN | | | | | | | ABD [place] EXC | | | | | | | SKIN ABD | | | | | | | ADD-ON [place] | | | | | | | EXCISE | | | | | | | EXCESS SKIN | | | | | | | TISSUE,OTHER | | | | | | | [place] SUCT | | | | | | | CARLEEN | | | | | | | LIPECTOMY,TR | | | | | | | UNK | | | +--------+--------+ + + + + Reason for Visit + + + | Reason | Comments | + + + | New patient | Panniculectomy | | consultation | | + + + Intake Referral (Routine) +--------+--------+ + + + + | Status | Reason | Specialty | Diagnoses / | Referred By | Referred To | | | | | Procedures | Contact | Contact | +--------+--------+ + + + + | Closed | | Plastic | Diagnoses | Jake, | Duglas, | | | | Surgery | Other | Shwetha Granado, GLOVE CUFFER | MD Sammie | | | | | obesity | Family | [address] [facility] | | | | | | Health | Ave | | | | | | [facility] | [place], [place] | | | | | | [address] | [address] | | | | | | [address], [address] | Phone: | | | | | | [place], | [phone] | | | | | | [place] [address] | Fax: | | | | | | Phone: | [phone] | | | | | | [phone] | | | | | | | Fax: | | | | | | | [phone] | | +--------+--------+ + + + + Encounter Details +--------+---------+ + + + | Date | Type | Department | Care Team | Description | +--------+---------+ + + + | 09/06/ | Office | Plastic and | Corine Olguin, | 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 | [address] | complication, | | | | [facility] | [phone] | unspecified whether | | | | and Healing, | | detention insulin | | | | Building [address] | | use ([facility]); Heart | | | | Floor [place], [place] | | murmur; | | | | [address] | | Intertriginous | | | | [phone] | | dermatitis | | | | | | associated with | | | | | | moisture; Bilateral | | | | | | leg edema | +--------+---------+ + + + Social History [...] Comments | + + +---------+ + | Yes | | | 1 drink per week | + + +---------+ + + + [...] + + + | Blood Pressure | 143/82 | 09/06/2018 12:14 PM | | | | | PDT | | + + + + + | Pulse | 80 | 09/06/2018 12:14 PM | | | | | PDT | | + + + + + | Temperature | - | - | | + + + + + | Respiratory Rate | - | - | | + + + + + | Oxygen Saturation | 95% | 09/06/2018 12:14 PM | | | | | PDT | | + + + + + | Inhaled Oxygen | - | - | | | Concentration | | | | + + + + + | Weight | 86.5 kg (190 lb 9.6 | 09/06/2018 12:14 PM | | | | oz) | PDT | | + + + + + | Height | 160.7 cm (5' 3.25") | 09/06/2018 12:14 PM | | | | | PDT | | + + + + + | Body Mass Index | 33.5 | 09/06/2018 12:14 PM | | | | | PDT | | + + + + + documented in this encounter Patient Instructions Patient Instructions Corine Olguin MD - 09/06/2018 11:30 AM [id number] [employer]. Purchasers of the Patient Consultation Resource Book are given a [employer]ivo[employer] license to modify documents contained herein and reproduce the modified version for use in the [employer]'s own practice only. All other rights are reserved by [employer]. Purchasers may not sell or allow any other democrat to use any version of the Patient Consultation Resource Book, any of the documents contained herein or any modifie d version of such documents. INFORMED CONSENT - PANNICULECTOMY INSTRUCTIONS This is an informed-consent document that has been prepared to help inform you of Pannicule ctomy surgery, its risks, as well as alternative treatments. It is important that you read this information carefully and completely. Please initial ea ch page, indicating that you have read the page and sign the consent for surgery as proposed by your plastic surgeon and agreed upon by you. GENERAL INFORMATION Panniculectomy is a surgical procedure to remove excess skin and fatty tissue from the lowe r abdomen. Panniculectomy surgery is not a treatment for being overweight. Obese individua ls who intend to lose weight should postpone all forms of body-contouring surgery until they have reached a stable weight. There are a variety of different techniques used by plastic s urgeons for panniculectomy. The panniculectomy can be combined with other forms of body-con touring surgery, including suction-assisted lipectomy in other areas, or other elective surg eries. Panniculectomy removes excess tissue leaving planned abdominal scars, without correct ing the abdominal muscles or other contour irregularities of the abdominal areas. It is usua lly performed when a pannus or overhang of abdominal tissue is present. ALTERNATIVE TREATMENTS Alternative forms of management consist of not treating the areas of loose skin and fatty d eposits. Liposuction may be a surgical alternative to panniculectomy, but usually will not h elp in removing the extra, loose, overhanging skin. Diet and exercise programs may be of viktoriya efit in the overall reduction of excess body fat and contour improvement. Risks and potentia l complications are associated with alternative surgical forms of treatment. RISKS OF PANNICULECTOMY SURGERY Every surgical procedure involves a certain amount of risk and it is important that you und erstand the risks and the possible complications involved with Panniculectomy. In addition, every procedure has limitations. An individual s choice to undergo a surgical procedure is based on the comparison of the risk to potential benefit. Although the majority of patie nts do not experience the following complications, you should discuss each of them with your plastic surgeon to make sure you understand all possible consequences of Panniculectomy. Specific Risks of Panniculectomy Surgery Change in Skin Sensation: It is common to experience diminished (or loss) of skin sensation in areas that have had surgery. Diminished (or complete loss of skin sensation) may not to tally resolve after an Panniculectomy. Skin Contour Irregularities: Contour and shape irregularities and depressions may occur aft er a panniculectomy. Visible and palpable wrinkling of skin can occur. Residual skin irregu larities at the ends of the incisions or dog ears are always a possibility as is skin pleating when there is excessive redundant skin. This may improve with time, or it can be s urgically corrected. Umbilicus: Malposition, scarring, unacceptable appearance or loss of the umbilicus (navel) may occur. Pubic Distortion: It is possible, though unusual, for women to develop distortion of their labia and pubic area. Should this occur, additional treatment including surgery may be nece ssary. General Risks of Surgery Healing Issues: Certain medical conditions, dietary supplements and medications may delay a nd interfere with healing. Patients with massive weight loss may have a healing delay that c ould result in the incisions coming apart, infection, and tissue changes resulting in the ne ed for additional medical care, surgery, and prolonged hospitalizations. Patients with diabe ramakrishna or those taking medications such as steroids on an extended basis may have prolonged hea ling issues. Smoking will cause a delay in the healing process, often resulting in the need for additional surgery. There are general risks associated with healing such as swelling, bl eeding, and the length of surgery and anesthesia that include a longer recovery and the poss ibility of additional surgery, prolonged recovery, color changes, shape changes, infection, not meeting goals and expectations, and added expense to the patient. Patients with signific ant skin laxity (patients seeking facelifts, breast lifts, panniculectomy, and body lifts) w ill continue to have the same lax skin after surgery. The quality or elasticity of skin will not change and recurrence of skin looseness will occur at some time in the future, quicker for some than others. There are nerve endings that may become involved with healing scars du ring surgery such as suction-assisted lipectomy, Panniculectomy, facelifts, body lifts, and extremity surgery. While there may not be a major nerve injury, the small nerve endings duri ng the healing period may become too active producing a painful or oversensitive area due to the small sensory nerve involved with scar tissue. Often massage and early non-surgical int ervention resolves this. It is important to discuss post-surgical pain with your surgeon. Bleeding: It is possible, though unusual, to experience a bleeding episode during or after surgery. Should post-operative bleeding occur, it may require emergency treatment to drain accumulated blood or you may require a blood transfusion, though such occurrences are rare. Increased activity too soon after surgery can lead to increased chance of bleeding and augie tional surgery. It is important to follow postoperative instructions and limit exercise and strenuous activity for the instructed time. Do not take any aspirin or anti-inflammatory med ications for at least ten days before or after surgery, as this may increase the risk of ble eding. Non-prescription herbs and dietary supplements can increase the risk of surgic al bleeding. Hematoma can occur at any time, usually in the first three weeks following inj ury to the operative area. If blood transfusions are necessary to treat blood loss, there i s the risk of blood-related infections such as hepatitis and HIV (AIDS). Heparin medication s that are used to prevent blood clots in veins can produce bleeding and decreased blood gabriel telets. Infection: Infection is unusual after surgery. Should an infection occur, additional treat ment including antibiotics, hospitalization, or additional surgery may be necessary. It is important to tell your surgeon of any other infections, such as ingrown toenail, insect bite , or urinary tract infection. Remote infections, infections in other parts of the body, may lead to an infection in the operated area. Scarring: All surgery leaves scars, some more visible than others. Although good wound hea ling after a surgical procedure is expected, abnormal scars may occur within the skin and de eper tissues. Scars may be unattractive and of different color than the surrounding skin to ne. Scar appearance may also vary within the same scar. Scars may be asymmetrical (appear different on the right and left side of the body). There is the possibility of visible snehal s in the skin from sutures. In some cases scars may require surgical revision or treatment. Firmness: Excessive firmness can occur after surgery due to internal scarring. The occurre nce of this is not predictable. Additional treatment including surgery may be necessary. Skin Discoloration / Swelling: Some bruising and swelling normally occur. The skin in or n ear the surgical site can appear either hearth feeder or darker than surrounding skin. Although u ncommon, swelling and skin discoloration may persist for long periods of time and, in rare s ituations, may be permanent. Skin Sensitivity: Itching, tenderness, or exaggerated responses to hot or cold temperatures may occur after surgery. Usually this resolves during healing, but in rare situations it m ay be chronic. Major Wound Separation: Wounds may separate after surgery. Should this occur, additional t reatment including surgery may be necessary. Sutures: Most surgical techniques use deep sutures. You may notice these sutures after you r surgery. Sutures may spontaneously poke through the skin, become visible or produce irrit ation that requires suture removal. Delayed Healing: Wound disruption or delayed wound healing is possible. Some areas of the skin may not heal normally and may take a long time to heal. Areas of skin may . This m ay require frequent dressing changes or further surgery to remove the non-healed tissue. In dividuals who have decreased blood supply to tissue from past surgery or radiation therapy m ay be at increased risk for delayed wound healing and poor surgical outcome. Smokers have a greater risk of skin loss and wound healing complications. Damage to Deeper Structures: There is the potential for injury to deeper structures includi ng nerves, blood vessels, muscles, and lungs (pneumothorax) during any surgical procedure. The potential for this to occur varies according to the type of procedure being performed. Injury to deeper structures may be temporary or permanent. Fat Necrosis: Fatty tissue found deep in the skin might . This may produce areas of fir mness within the skin. Additional surgery to remove areas of fat necrosis may be necessary. There is the possibility of contour irregularities in the skin that may result from fat ne crosis. Seroma: Infrequently, fluid may accumulate between the skin and the underlying tissues foll owing surgery, trauma or vigorous exercise. Should this problem occur, it may require addit ional procedures for drainage of fluid. Surgical Anesthesia: Both local and general anesthesia involve risk. There is the possibil ity of complications, injury, and even from all forms of surgical anesthesia or sedati on. Shock: In rare circumstances, your surgical procedure can cause severe trauma, particularly when multiple or extensive procedures are performed. Although serious complications are in frequent, infections or excessive fluid loss can lead to severe illness and even . If surgical shock occurs, hospitalization and additional treatment would be necessary. Pain: You will experience pain after your surgery. Pain of varying intensity and duration may occur and persist after surgery. Chronic pain may occur very infrequently from nerves b ecoming trapped in scar tissue or due to tissue stretching. Cardiac and Pulmonary Complications: Pulmonary complications may occur secondarily to both blood clots (pulmonary emboli), fat deposits (fat emboli) or partial collapse of the lungs a fter general anesthesia. Pulmonary emboli can be life-threatening or fatal in some circumst ances. Inactivity and other conditions may increase the incidence of blood clots traveling to the lungs causing a major blood clot that may result in . It is important to discus s with your physician any past history of swelling in your legs or blood clots that may cont ribute to this condition. Cardiac complications are a risk with any surgery and anesthesia, even in patients without symptoms. If you experience shortness of breath, chest pain, or un usual heart beats, seek medical attention immediately. Should any of these complications oc cur, you may require hospitalization and additional treatment. Allergic Reactions: In rare cases, local allergies to tape, suture material and glues, bloo d products, topical preparations or injected agents have been reported. Serious systemic re actions including shock (anaphylaxis) may occur in response to drugs used during surgery and prescription medicines. Allergic reactions may require additional treatment. Asymmetry: Symmetrical body appearance may not result after surgery. Factors such as skin tone, fatty deposits, skeletal prominence, and muscle tone may contribute to normal asymmetr y in body features. Most patients have differences between the right and left side of their bodies before any surgery is performed. Additional surgery may be necessary to attempt to diminish asymmetry. Surgical Wetting Solutions: There is the possibility that large volumes of fluid containing dilute local anesthetic drugs and epinephrine that is injected into fatty deposits during s urgery may contribute to fluid overload or systemic reaction to these medications. Addition al treatment including hospitalization may be necessary. Persistent Swelling (Lymphedema): Persistent swelling in the legs can occur following surge ry. Unsatisfactory Result: Although good results are expected, there is no guarantee or warrant y expressed or implied, on the results that may be obtained. You may be disappointed with t he results of surgery. Asymmetry, unanticipated shape and size, loss of function, wound dis ruption, poor healing, and loss of sensation may occur after surgery. Size may be incorrect . Unsatisfactory surgical scar location or appearance may occur. It may be necessary to pe rform additional surgery to improve your results. ADDITIONAL ADVISORIES Smoking, Second-Hand Smoke Exposure, Nicotine Products (Patch, Gum, Nasal [place]): Patients who are currently smoking or use tobacco or nicotine products (patch, gum, or nasa l spray) are at a greater risk for significant surgical complications of skin dying, delayed healing and additional scarring. Individuals exposed to second-hand smoke are also at pote ntial risk for similar complications attributable to nicotine exposure. Additionally, smoki ng may have a significant negative effect on anesthesia and recovery from anesthesia, with c oughing and possibly increased bleeding. Individuals who are not exposed to tobacco smoke o r nicotine-containing products have a significantly lower risk of this type of complication. Please indicate your current status regarding these items below: I am a non-smoker and do not use nicotine products. I understand the potential risk of se cond-hand smoke exposure causing surgical complications. I am a smoker or use tobacco / nicotine products. I understand the risk of surgical compl ications due to smoking or use of nicotine products. I have smoked and stopped approximately ago. I understand I may still have the e ffects and therefore risks from smoking in my system, if not enough time has lapsed. It is important to refrain from smoking at least 6 weeks before surgery and until your phys ician states it is safe to return, if desired. I acknowledge that I will inform my physician if I continue to smoke within this time frame, and understand that for my safety, the surge ry, if possible, may be delayed. Medications and Herbal Dietary Supplements: There are potential adverse reactions that occu r as the result of taking [id number], herbal, and/or prescription medications. Aspirin and medications that contain aspirin interfere with clotting and can cause more bleeding. T hese include non-steroidal anti-inflammatories such as Motrin, Advil, and Alleve. It is very important not to stop drugs that interfere with platelets, such as Plavix, which is used af ter a stent. It is important if you have had a stent and are taking Plavix that you inform t he plastic surgeon. Stopping Plavix may result in a heart attack, stroke and even . Be sure to check with your physician about any drug interactions that may exist with medication s that you are already taking. If you have an adverse reaction, stop the drugs immediately and call your plastic surgeon for further instructions. If the reaction is severe, go immed iately to the nearest emergency room. When taking the prescribed pain medications after fermin eliza, realize that they can affect your thought process and coordination. Do not drive, do not operate complex equipment, do not make any important decisions and do not drink any alco hol while taking these medications. Be sure to take your prescribed medication only as dire cted. Sun Exposure Direct or Tanning Salon: The effects of the sun are damaging to the skin. Exposing the treated areas to sun may result in increased scarring, color changes, and poor healing. Patients who barajas, either outdoors or in a salon, should inform their surgeon and ei ther delay treatment, or avoid tanning until the surgeon says it is safe to resume. The geetha ging effect of sun exposure occurs even with the use sun block or clothing coverage. Travel Plans: Any surgery holds the risk of complications that may delay healing and delay your return to normal life. Please let the surgeon know of any travel plans, important commi tments already scheduled or planned, or time demands that are important to you, so that appr opriate timing of surgery can occur. There are no guarantees that you will be able to resume all activities in the desired time frame. Long-Term Results: Subsequent alterations in the appearance of your body may occur as the r esult of aging, sun exposure, weight loss, weight gain, , menopause or other circum stances not related to your surgery. Body-Piercing Procedures: Individuals who currently wear body-piercing jewelry in the [facility] region are advised that an infection could develop from this activity. Female Patient Information: It is important to inform your plastic surgeon if you use control pills, estrogen replacement, or if you suspect you may be . Many medicati ons including antibiotics may neutralize the preventive effect of control pills, allow ing for conception and . Intimate Relations After Surgery: Surgery involves coagulating of blood vessels and increas ed activity of any kind may open these vessels leading to a bleed, or hematoma. Activity th at increases your pulse or heart rate may cause additional bruising, swelling, and the need for return to surgery and control bleeding. It is patel to refrain from intimate physical ac tivities until your physician states it is safe. Mental Health Disorders and Elective Surgery: It is important that all patients seeking to undergo elective surgery have realistic expectations that focus on improvement rather than p erfection. Complications or less than satisfactory results are sometimes unavoidable, may r equire additional surgery and often are stressful. Please openly discuss with your surgeon, prior to surgery, any history that you may have of significant emotional depression or ment al health disorders. Although many individuals may benefit psychologically from the results of elective surgery, effects on mental health cannot be accurately predicted. ADDITIONAL SURGERY NECESSARY (Re-Operations) There are many variable conditions that may influence the long-term result of surgery. It i s unknown how your tissue may respond or how wound healing will occur after surgery. Second michael surgery may be necessary to perform additional tightening or repositioning of body struc tures. Should complications occur, additional surgery or other treatments may be necessary. Even though risks and complications occur infrequently, the risks cited are particularly a ssociated with this surgery. Other complications and risks can occur but are even more unco mmon. The practice of medicine and surgery is not an exact science. Although good results are expected, there is no guarantee or warranty expressed or implied, on the results that ma y be obtained. In some situations, it may not be possible to achieve optimal results with a single surgical procedure. PATIENT COMPLIANCE Follow all physician instructions carefully; this is essential for the success of your outc ome. It is important that the surgical incisions are not subjected to excessive force, swel ling, abrasion, or motion during the time of healing. Personal and vocational activity need s to be restricted. Protective dressings and drains should not be removed unless instructed by your plastic surgeon. Successful post-operative function depends on both surgery and mancera bsequent care. Physical activity that increases your pulse or heart rate may cause bruising , swelling, fluid accumulation and the need for return to surgery. It is patel to refrain fr om intimate physical activities after surgery until your physician states it is safe. It is important that you participate in follow-up care, return for aftercare, and promote your re covery after surgery. HEALTH INSURANCE Most health insurance companies exclude coverage for cosmetic surgical operations or any re sulting complications. Please carefully review your health insurance subscriber-information pamphlet. Most insurance plans exclude coverage for secondary or revisionary surgery due t o complications of cosmetic surgery. Panniculectomy may be covered if approval from your [facility] Insurance Provider is obtained in advance. Occassionally, in massive weight loss patient s with severe skin symptoms, coverage is approved, but will not cover any cosmetic component of abdominal contour improvement such as liposuction or muscle correction. FINANCIAL RESPONSIBILITIES The cost of surgery involves several charges for the services provided. The total includes fees charged by your surgeon, the cost of surgical supplies, anesthesia, laboratory tests, and possible outpatient hospital charges, depending on where the surgery is performed. Depe nding on whether the cost of surgery is covered by an insurance plan, you will be responsibl e for necessary co-payments, deductibles, and charges not covered. The fees charged for thi s procedure do not include any potential future costs for additional procedures that you isael ct to have or require in order to revise, optimize, or complete your outcome. Additional co sts may occur should complications develop from the surgery. Secondary surgery or hospital day-surgery charges involved with revision surgery will also be your responsibility. In sig vangie the consent for this surgery/procedure, you acknowledge that you have been informed abo ut its risks and consequences and accept responsibility for the clinical decisions that were made along with the financial costs of all future treatments. ___I understand that with cosmetic surgery, I am responsible for the surgical fees quoted t o me, as well as additional fees for anesthesia, facility (OR), and possibly laboratory, X-r ay, and pathology fees. Surgicenters, Outpatient Centers, and Hospitals often have rules that certain tissue/implan ts removed during surgery must be sent for evaluation which may result in additional fees. P saranase check with your surgeon to receive an estimate of any additional costs that you may be charged. ___I understand that there will be a non-refundable fee for booking and scheduling my surge ry of $ , which is a part of the overall surgical fee. Should I cancel my surgery without an approved medically acceptable reason, submitted in wr iting and acceptable to the practice, within weeks of the scheduled surgery, this fee is forfeited. While this may appear to be a charge for services which were not provided, thi s fee is necessary to reserve time in the OR and in the practice, which are done when I sche dule. ___ I understand and unconditionally and irrevocably accept this. DISCLAIMER Informed-consent documents are used to communicate information about the proposed surgical treatment of a disease or condition along with disclosure of risks and alternative forms of treatment(s), including no surgery. The informed-consent process attempts to define princip les of risk disclosure that should generally meet the needs of most patients in most [facility]. However, informed-consent documents should not be considered all-inclusive in defining othe r methods of care and risks encountered. Your plastic surgeon may provide you with addition al or different information which is based on all the facts in your particular case and the current state of medical knowledge. Informed-consent documents are not intended to define or serve as the standard of medical c are. Standards of medical care are determined on the basis of all of the facts involved in an individual case and are subject to change as scientific knowledge and technology advance and as practice patterns evolve. It is important that you read the above information carefully and have all of your question s answered before signing the consent on the next page. CONSENT FOR SURGERY / PROCEDURE or TREATMENT 1. I hereby authorize and such assistants as may be selected to perform the following procedure or treatment: PANNICULECTOMY I have received the following information sheet: INFORMED CONSENT PANNICULECTOMY SURGERY 2. I recognize that during the course of the operation and medical treatment or anesthesia, unforeseen conditions may necessitate different procedures than those above. I therefore a uthorize the above physician and assistants or designees to perform such other procedures th at are in the exercise of his or her professional judgment necessary and desirable. The aut hority granted under this paragraph shall include all conditions that require treatment and are not known to my physician at the time the procedure is begun. 3. I consent to the administration of such anesthetics considered necessary or advisable. I understand that all forms of anesthesia involves risk and the possibility of complications , injury, and sometimes . 4. I understand what my surgeon can and cannot do, and I understand there are no warranties or guarantees, implied or specific about my outcome. I have had the opportunity to explain my goals and understand which desired outcomes are realistic and which are not. All of my qu estions have been answered, and I understand the inherent (specific) risks of the procedures I seek, as well as those additional risks and complications, benefits, and alternatives. Un derstanding all of this, I elect to proceed. 5. I consent to be photographed or televised before, during, and after the operation(s) or procedure(s) to be performed, including appropriate portions of my body, for medical, scient ific or educational purposes, provided my identity is not revealed by the pictures. 6. For purposes of advancing medical education, I consent to the admittance of observers to the operating room. 7. I consent to the disposal of any tissue, medical devices or body parts which may be carmelina johnathan. 8. I consent to the utilization of blood products should they be deemed necessary by my fermin geon and/or his/her appointees, and I am aware that there are potential significant risks to my health with their utilization. 9. I authorize the release of my Social Security number to appropriate agencies for legal r eporting and medical-device registration, if applicable. 10. I understand that the surgeon s fees are separate from the anesthesia and hospital [facility], and the fees are agreeable to me. If a secondary procedure is necessary, further exp enditure will be required. 11. I realize that not having the operation is an option. 12. IT HAS BEEN EXPLAINED TO ME IN A WAY THAT I UNDERSTAND: a. THE ABOVE TREATMENT OR PROCEDURE TO BE UNDERTAKEN b. THERE MAY BE ALTERNATIVE PROCEDURES OR METHODS OF TREATMENT c. THERE ARE RISKS TO THE PROCEDURE OR TREATMENT PROPOSED I CONSENT TO THE TREATMENT OR PROCEDURE AND THE ABOVE LISTED ITEMS (1-12). I AM SATISFIED WITH THE EXPLANATION. Patient or Person Authorized to Sign for Patient Date Witness Recovery Instructions: Panniculectomy Upon arriving at home, it is best [...] Your incisions may be covered with a topical skin adhesive or non -adherent dressing and gauze. You can start showering 24 hours after surgery. Use a gentle soap and allow water to rinse your incisions. When drying, be gentle and towel pat dry. Th e skin adhesive will slowly peel off over the next several days to weeks, and this is okay. Please avoid hot tubs, swimming pools, or [...] resuming your regular diet is fine. Most pa tients prefer to avoid heavy or greasy foods the first 24 hours after surgery. Eat a high pr otein and high vitamin C diet to promote healing. Excessive alcohol suppresses your immune s ystem and increases your risks of surgical site infection. Having an occasional glass of win e or beer is fine. 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 Call our office immediately [...] emergency or think you may need tushar gency care. Avoid all NSAIDs, anticoagulation medications, garlic, Vit E, fish oil, herbs and alcohol f or a week prior to surgery. documented in this encounter Progress Notes Corine Olguin MD - 09/06/2018 11:30 AM PDTFormatting of this note might be different fro m the original. Plastic Surgery Clinic Note Reason for Visit: panniculectomy History of Present Illness: Anne-Marie Mora is a 53 year old female status post mass ramona weight loss via diet and exercises presented to clinic to discuss about panniculectomy. She lost about 60 pounds. Her weight has been stable for over 6 months. She complained of recurrent yeast infection along her abdominal skin folds. She reported c onstant itchiness, irritation, and burning pain along her abdominal skin folds. The patient rated her burning pain as 4-5/10 on a scale of 1 to 10; 1 being no pain and 10 being very p ainful. She also required antibiotic treatment for her skin fold infections about twice a y ear. The patient denied any hospitalization related to her recurrent skin yeast infection. She uses antifungal creams to control her rashes. Her diabetes is well-controlled. Her last HbgA1C done on 06/2018 was 5.7. The patient is i nterested to have her excess abdominal skin and subcutaneous tissues to be removed to preven t recurrence of her skin rashes. PMH: Past Medical History: Diagnosis Date Arthropathy Diabetes mellitus (HCC) Essential hypertension Hiatal hernia with GERD PSH: Past Surgical History Procedure Laterality Date Shoulder surgery 2017 Carpal tunnel surgery 2016 Hysterectomy Tubal ligation Removal of bladder neck sling 2014 Excision of tumor 1985 benign - ovarian Medications: furosemide 20 mg oral tablet, Lisdexamfetamine (VYVANSE) 50 mg oral capsule, Take 50 mg by mouth once daily. losartan 25 mg oral tablet, Take 25 mg by mouth once daily. omeprazole 20 mg oral capsule,delayed release(DR/EC), Take 20 mg by mouth once daily. VICTOZA 3-IRENA 0.6 mg/0.1 mL (18 mg/3 mL) subcutaneous pen injector, inject 1.8 milligrams s ubcutaneously once daily DISCARD PEN 50 DAYS AFTER OPENING Allergies: Allergies Allergen Reactions Amlodipine Anaphylaxis Carvedilol Cough Coreg(carvedilol) Note:cough, choking ; Type:Drug; Hydrochlorothiazide Cough Lisinopril Cough SH: Social History Substance Use Topics Smoking status: Never Smoker Smokeless tobacco: Never Used Alcohol use Yes Comment: 1 drink per week Social History Narrative None on file FH: Family History Problem Relation Diabetes Mother Heart Disease Father Diabetes Brother Cancer Brother Stroke Maternal Grandmother Cancer Paternal Grandfather Review of Systems: 19-point systems reviewed with the patient and scanned into MePlease. All ne gative findings except as noted in history and on intake form. OBJECTIVE: Vitals: BP 143/82 | Pulse 80 | Ht 1.607 m (5' 3.25") | Wt 86.5 kg (190 lb 9.6 oz) | SpO2 95% | BMI 33.5 kg/(m^2) Physical Exam: General: A & O x 3, sitting in chair in NAD HEENT: NC, AT; EOMI, vision grossly intact; external ears within normal limits; no nasal dr ainage; op clear Neck: supple, NTTP CV: RRR, systolic murmurs III/IV Lung: CTA bilaterally, no wheezes Abdomen: soft, NT, ND, normoactive BS. Well-healed laparoscopic scars. A 5 cm horizontal e pigastric pannus, 13 cm panniculus, 9 cm monsplasty, and a 4 cm panniculus at the level of u mbilicus. A 2 cm rectus diastasis. Extremities: trace edema to bilateral lower extremities up to mid-calf Skin: no active skin rashes along her abdominal skin fold or around umbilicus on exam. ASSESSMENT: Anne-Marie Mora is a 53 year old female patient who presents with lipodystrophy. PLANS: 1. Abdominal lipodystrophy - discussed with the patient of her surgical options included, b ut not limited to, panniculectomy, monsplasty, extended panniculectomy, Njwco-lc-wlf abdomin oplasty, traditional abdominoplasty, liposuction, etc. Recommend Iarht-xp-onk abdominoplast y with monsplasty and liposuction. The patient would want a fox quote for the procedure. She is also interested in proceeding whatever her insurance will cover. In order to remove more excess abdominal skin and subcutaneous tissue, she wants to proceed with an extended p anniculectomy with removal of umbilicus. 2. BMI 33.5 - recommend healthy diet and exercise. 3. Recurrent skin rashes - continue with antifungal creams. 4. Avoid all NSAIDs, anticoagulation medications, garlic, Vit E, fish oil, herbs and alcoho l for a week prior to surgery. I spend 60 minutes with the patient with more than half of time consulting the patient. Corine Olguin MD PLASTIC AND RECONSTRUCTIVE SURGERY AT [facility] [address] Mail Code: [address] [address] documented in this en counter Plan of Treatment +--------+---------+ + + + | Date | Type | Specialty | Care Team | Description | +--------+---------+ + + + | 02/05/ | Office | Plastic Surgery | Corine Olguin, | | | 2019 | Visit | | [address] [facility] | | | | | | [address] | | | | | | [place], [place] | | | | | | [address] | | | | | | [phone] | | | | | | | | +--------+---------+ + + + documented as of this encounter Visit Diagnoses + + | Diagnosis | + + | Lipodystrophy - Primary | + + | Type 2 diabetes mellitus without complication, unspecified whether detention insulin | | use (HCC) | + + | Heart murmur Undiagnosed cardiac murmurs | + + | Intertriginous dermatitis associated with moisture | + + | Bilateral leg edema Edema | + + documented in this encounter
--- OUTSIDE RECORDS SUMMARY | ~2019-09-04 | XMS | Encounter Summary ---
Demographics + + + | Address | [address] | | | [place] [address] | + + + | Home Phone | | + + + | Preferred Language | Unknown | + + + | Marital Status | | + + + | Moravian Affiliation | CAT | + + + | Race | White | + + + | Ethnic Group | Not or | + + + Author + + + | Author | [facility] | + + + | Organization | [facility] | + + + | Address | Unknown | + + + | Phone | Unavailable | + + + Support + + +---------+ + | Name | Relationship | Address | Phone | + + +---------+ + | Ranjana Shell | ECON | Unknown | | + + +---------+ + Care Team Providers + +------+ + | Care Clinical Study Manager Name | Role | Phone | + [...] abdominoplasty | | | | Surgery at [facility] [address] | (Primary Dx); | | | | [address] | [place], [place] | Essential | | | | Mailcode: 5 | [address] | hypertension, benign | | | | [facility] | [phone] | | | | | and Healing, | | | | | | Building [address] | | | | | | Floor [facility] [place] | | | | | | [address] | | | | | | [phone] | | | +--------+---------+ + + + [...] of surgery: 12/16/2018. Description of surgery: 1. Bjoba-db-Aap abdominoplasty. 2. Wedge monsplasty. 3. Abdominal wall liposuction. History of present illness: Anne-Marie Mora is a 53 year old female status post Acdsc-zm-Cde abdominoplasty with wedge monsplasty and abdominal wall [...] a 53 year old female status post Fzlyc-fk-Djt abdominoplasty with wedge monsplasty and abdominal wall [...] Olguin MD PLASTIC AND RECONSTRUCTIVE SURGERY AT [facility] [address] Mail Code: [place] [address] documented in this en counter [...] Rd | | | | | | [place], [place] | | | | | | [address] | | | | | | [phone] | | | | | | | | +--------+---------+ + + + documented as of this encounter Visit Diagnoses + + | Diagnosis | + + | Status post abdominoplasty - Primary Other postprocedural status | + + | Essential hypertension, benign | + + documented in this encounter"
--- OUTSIDE RECORDS SUMMARY | ~2019-09-04 | XMS | Encounter Summary ---
Demographics + + + | Address | [address] | | | [place] [address] | + + + | Home Phone | | + + + | Preferred Language | Unknown | + + + | Marital Status | | + + + | Voodoo Affiliation | CAT | + + + | Race | White | + + + | Ethnic Group | Not or | + + + Author + + + | Author | [facility] | + + + | Organization | [facility] | + + + | Address | Unknown | + + + | Phone | Unavailable | + + + Support + + +---------+ + | Name | Relationship | Address | Phone | + + +---------+ + | Ranjana Shell | ECON | Unknown | | + + +---------+ + Care Team Providers + +------+ + | Care Healthcare Administrative Assistant Name | Role | Phone | [...] | 2019 | Visit | Reconstructive | [facility] [address] | (Primary Dx); | | | | Surgery at [facility] [address] | [address] [place], [place] | Intermittent asthma, | | | | [address] | [address] | unspecified asthma | | | | Mailcode: [facility] | [phone] | severity, | | | | [facility] | | unspecified whether | | | | and Healing, | | complicated; Change | | | | [address] | | or removal of drains | | | | Floor [place], [place] | | | | | | [address] | | | | | | [phone] | | | +--------+---------+ + + + [...] than 3 weeks, please contact us to therese de leon. -Keep incisions out of sunlight [...] healthy: make sure you are getting the FLOOR CASHIER recommended amounts (unless you are allergi c) [...] not hesitate to call our office at [phone] with any questions or concerns. Ask for Kathy Olivas, Nurse Practitioner or my Conference Director. Scar management: To optimize the conditions for [...] threatening emergency or think you may need [facility] care. documented in this encounter Progress Notes Kathy Olivas FNP - 12/31/2018 1:15 PM PST Division of Plastic and Reconstructive Surgery Date of surgery: 12/16/2018. Description of surgery: Wbikf-xc-Saw abdominoplasty. Wedge monsplasty. Abdominal wall liposuction. Surgeon: Dr. Corine Olguin MD. POD#: 14. Drains: Two 19-Welsh Bk drains to the anterior abdominal wall with 1 drain along each g utter and one 15-Welsh Bk drain along the midline. Subjective: Notes [...] NP Division of Plastic & Reconstructive Surgery [facility] documented in this encounter Plan of Treatment +--------+---------+ + + + | Date | Type | Specialty | Care Team | Description | +--------+---------+ + + + | 02/05/ | Office | Plastic Surgery | Corine Olguin, | | | 2019 | Visit | | [address] | | | | | | [address] | | | | | | [place], [place] | | | | | | [address] | | | | | | [phone] | | | | | | | [...]
--- OUTSIDE RECORDS SUMMARY | ~2019-09-04 | XMS | Encounter Summary ---
Demographics + + + | Address | [address] | | | [place] [address] | + + + | Home Phone | | + + + | Preferred Language | Unknown | + + + | Marital Status | | + + + | Denominational Affiliation | CAT | + + + | Race | White | + + + | Ethnic Group | Not or | + + + Author + + + | Author | [facility] | + + + | Organization | [facility] | + + + | Address | Unknown | + + + | Phone | Unavailable | + + + Support + + +---------+ + | Name | Relationship | Address | Phone | + + +---------+ + | Ranjana Shell | ECON | Unknown | | + + +---------+ + Care Team Providers + +------+ + | Care Nfl Player Name | Role | Phone | + +------+ + | Shwetha JosephP | PCP | | + +------+ + Encounter Details +--------+ + + + + | Date | Type | Department | Care Team | Description | +--------+ + + + + | 12/16/ | Procedure | [address] | | | | 2019 | Pass | [facility] | | | | | | [address] | | | | | | [facility] | | | | | | Surgery Admitting | | | | | | Desk Located on the | | | | | | 4th floor, Room | | | | | | [address] [facility] [place] | | | | | | [address] | | | +--------+ + + + [...] Rd | | | | | | [place] | | | | | | [address] | | | | | | [phone] | | | | | | | | +--------+---------+ + + + documented as of this encounter Visit Diagnoses Not on filedocumented in this encounter"
--- OUTSIDE RECORDS SUMMARY | ~2019-09-04 | XMS | Encounter Summary ---
Demographics + + + | Address | [address] | | | [place] [address] | + + + | Home Phone | | + + + | Preferred Language | Unknown | + + + | Marital Status | | + + + | Caodaism Affiliation | CAT | + + + | Race | White | + + + | Ethnic Group | Not or | + + + Author + + + | Author | [facility] | + + + | Organization | [facility] | + + + | Address | Unknown | + + + | Phone | Unavailable | + + + Support + + +---------+ + | Name | Relationship | Address | Phone | + + +---------+ + | Ranjana Shell | ECON | Unknown | | + + +---------+ + Care Team Providers + +------+ + | Care Credit Risk Analytics Manager Name | Role | Phone | [...] + + + + | 12/16/ | Hospital | [facility] [address] | Corine Olguin, | | | 2019 | Encounter | [address] | MD [address] | | | | | [address] | [address] | | | | | Pat Schafer | [place], [place] | | | | | (MNP/OLD [facility]) | [address] | | | | | [place], [place] | [phone] | | | | | [address] | | | | | | [phone] | | | +--------+ + + + [...] 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 Call our office immediately [...] emergency or think you may need [facility] care. POSTOPERATIVE INSTRUCTIONS DOCUMENT DRAIN OUTPUT: You are being dismissed with 3 surgical drains to drain fluid out of your wound. Please e mpty your drains several times per day as instructed and record daily output in the booklet provided. Bring this booklet with you to your follow-up appointment. Contact Dr. [facility] once the daily output is less than [...] should seek medical attention and/or contact the [facility] of Surgical Oncology at ([phone]). After normal business hours, please call the [facility] cnc wood lathe operator at [phone] and ask for the "Gold Surgery"resident transformation coach. 2. You may shower, however, do not [...] juice, and warm liquids. You may take gbzu-ydh-crrwtya fiber supplements. (i.e. Metamucil or Citrucel) Walking [...] may receive a patient satisfaction survey from "Stephanie Levin". We w phucld appreciate your feedback on the survey to [...] daily. | | | | | | release(/EC) | | | | | | + + + +---------+ + + documented as of this encounter Plan of Treatment +--------+---------+ + + + | Date | Type | Specialty | Care Team | Description | +--------+---------+ + + + | 02/05/ | Office | Plastic Surgery | Corine Olguin, | | | 2019 | Visit | | [address] | | | | | | [address] | | | | | | [place], [place] | | | | | | [address] | | | | | | [phone] | | | | | | | [...] | Procedure Note | + + | Corine Olguin MD - 12/16/2018 6:12 PM PST Date of Service: 12/16/2018 Attending | | Surgeon: Corine Olguin MD Welder Apprentice Combination(s): Selma Gloria MD | | Anesthesia: General endotracheal tube anesthesia.Anesthesiologist: Gallito Arango, | | MDPreoperative Diagnoses: 1. Symptomatic lipodystrophy.2. Diabetes mellitus.3. | | Hypertension.4. Gastroesophageal reflex disease.5. Arthritis.6. Body mass index of | | 33.66.Postoperative Diagnoses: 1. Symptomatic lipodystrophy.2. Diabetes mellitus.3. | | Hypertension.4. Gastroesophageal reflex disease.5. Arthritis.6. Body mass index of | | 33.66.Procedure: 1. Epwpw-nw-Idv abdominoplasty.2. Wedge monsplasty.3. Abdominal wall | | liposuction.Findings: Total weight of tissue removed from the anterior abdominal wall | | was 4686 g. Total amount of aspirate obtained from the abdominal wall was 3500 | | mL.Pathology: None.Intravenous Fluids: 1300 mL crystalloid.Urine Output: None, no | | Nieto.Estimated Blood Loss: 250 mL.Drains: Two 19-Slovenian Bk drains to the anterior | | abdominal wall with 1 drain along each gutter and one 15-Slovenian Bk drain along the | | midline.Complications: [...] a 2 cm rectus diastasis. Therefore, a Sddiw-pz-Eii abdominoplasty, | | wedge monsplasty, and trunk [...] suture in a | | buried interrupted pmyclv-ro-hujwf fashion. Two 19-Slovenian Bk drains were then placed | | in the anterior abdominal wall with one drain along each gutter, and one 15-Slovenian | | Bk drain was placed in [...] informed of the intraoperative | | findings.ADAM Villegas/TANIYALDD: 12/16/2018 19:23:55DT: 12/16/2018 20:19:22Job #: | | [id number] | |informed of the intraoperative findings. | | | |Corine Olguin MD | |SC/MODL | | | | | | /[id number] | + + CAPILLARY BLOOD GLUCOSE (NO CHG), POC (12/16/2018 5:49 PM PST) + +---------+ + + + | Component | Value | Ref Range | Performed | Pathologist | | | | | At | Signature | + +---------+ + + + | BLOOD | 203 (H) | 60 - 99 mg/dL | [facility] - | | | GLUCOSE, | | [...] [facility] | [address] | [place], [place] | | | RACHEL POINT OF CARE | [address] | [address] | | | TESTS | | | [...] + + + + + | ARIN - DAMAR[facility] | [address] | [place], [place] | | | [place] | [address] | [address] | | | TESTS | | | [...] + + | ARIN [facility] | [address] | [place], [place] | | | RACHEL [facility] | [address] | [address] | | | TESTS | | | [...] PST | | | | | Starting [facility] 12/16/18 at 0718, | | | [...] | | | Until Adriana 12/16/18 at 0730 | | | | | | + +-------+ +--------+---+---+ + +---+ | | | + +---+ | fentaNYL (SUBLIMAZE) injection | | | 25 mcg 25 mcg, intravenous, | | | POSTPROCEDURE PRN, 8 doses, | | | Starting Adriana 12/16/18 at 0831, | | | Until Thu12/17/18 at 0013, severe | | | pain [...] | | | | | | Until Thu12/16/18 at 0729 | | | | | [...] PRN, 1 | | | dose, Starting Adriana 12/16/18 at | | | 0831, Until Thu12/17/18 at 0013, | | | nausea/vomiting due to | | | dehydration | | + +---+ | | | + +---+ | lactated Ringers IV 500 mL, | | | intravenous, POSTPROCEDURE PRN, 1 | | | dose, Starting Adriana 12/16/18 at | | | 0831, Until Thu12/17/18 at 0013, | | | systolic blood pressure less than | | | 80 mmHg. 1st line | | + +---+ | | | + +---+ | naloxone (NARCAN) injection | | | intravenous, POSTPROCEDURE PRN, | | | Starting [facility] 12/16/18 at 0831, | | | Until Thu12/17/18 at 0013, | | | hypopnea | | + +---+ | | | + +---+ | ondansetron (ZOFRAN) injection | | | 4 mg 4 mg, intravenous, | | | POSTPROCEDURE PRN, 1 dose, | | | Starting [facility] 12/16/18 at 0831, | | | [...] | | | | | NEEDED, Starting [facility] 12/16/18 at | | | | | | | 1239, Until Thu12/17/18 at 0013, | | | | | | | severe pain | | | | | | + +-------+ +-------+---+---+ + +---+ | | | + +---+ | oxyCODONE (immediate release) | | | (ROXICODONE) tablet 1 dose, | | | Starting [facility] 12/16/18 at 1357, | | | Until [facility] 12/16/18 at 1359 | | + +---+ [...]
--- OUTSIDE RECORDS SUMMARY | ~2019-09-04 | XMS | Clinical Summary ---
Demographics + + + | Address | [address] | | | [place] [address] | + + + | Home Phone [...] Team Providers + +------+ + | Care Forest Fire Fighter Name | Role | Phone | + +------+ + | Shwetha JosephP | PCP | | + +------+ + Source Comments ARIN is fully live on both [facility] Ambulatory and [facility] InPatient.[facility] Allergies + + + + + + [...] [address] | | | | | | [place], [place] | | | | | | [address] | | | | | | [phone] | | | | | | | [...] | IS | | sent | | [place], [place] | | | | | | | | [address] | | + +--------+ +--------+ + +------+ [...] | 1965 | [phone] | [place] [address] | | | eitan | | | [...]
--- OUTSIDE RECORDS SUMMARY | ~2019-09-04 | XMS | Encounter Summary ---
Demographics + + + | Address | [address] | | | [place] [address] | + + + | Home Phone | | + + + | Preferred Language | Unknown | + + + | Marital Status | | + + + | Oriental Orthodox Affiliation | CAT | + + [...] Team Providers + +------+ + | Care Nuclear Auxiliary Operator Name | Role | Phone | [...] + + | 12/16/ | Hospital | [facility] [address] | Corine Olguin, | | | 2019 | Encounter | [address] | MD [address] | | | | | [address] | [address] | | | | | [address] Scha[address] | [place], [place] | | | | | (MNP/[facility]) | [address] | | | | | [place], [place] | [phone] | | | | | [address] | | | | | | [phone] | | | +--------+ + + + [...] 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 Call our office immediately [...] emergency or think you may need [facility] care. POSTOPERATIVE INSTRUCTIONS DOCUMENT DRAIN OUTPUT: You are being dismissed with 3 surgical drains to drain fluid out of your wound. Please e mpty your drains several times per day as instructed and record daily output in the booklet provided. Bring this booklet with you to your follow-up appointment. [facility] once the daily output is less than [...] should seek medical attention and/or contact the [facility] of Surgical Oncology at ([phone]). After normal business hours, please call the [facility] potato peeling machine operator at [phone] and ask for the "Gold Surgery"resident medical record consultant. 2. You may shower, however, do not [...] juice, and warm liquids. You may take xjad-gct-figoaom fiber supplements. (i.e. Metamucil or Citrucel) Walking [...] | | 2019 | Visit | | [address] | | | | | | [address] | | | | | | [place], [place] | | | | | | [address] | | | | | | [phone] | | | | | | | [...] Attending | | Surgeon: Corine Olguin MD Retail Maintenance Technician(s): Selma Gloria MD | | Anesthesia: General endotracheal tube anesthesia.Anesthesiologist: Gallito Arango, | | MDPreoperative Diagnoses: 1. Symptomatic lipodystrophy.2. Diabetes mellitus.3. | | Hypertension.4. Gastroesophageal reflex disease.5. Arthritis.6. Body mass index of | | 33.66.Postoperative Diagnoses: 1. Symptomatic lipodystrophy.2. Diabetes mellitus.3. | | Hypertension.4. Gastroesophageal reflex disease.5. Arthritis.6. Body mass index of | | 33.66.Procedure: 1. Tsizs-kh-Tov abdominoplasty.2. Wedge monsplasty.3. Abdominal wall | | liposuction.Findings: Total weight of tissue removed from the anterior abdominal wall | | was 4686 g. Total amount of aspirate obtained from the abdominal wall was 3500 | | mL.Pathology: None.Intravenous Fluids: 1300 mL crystalloid.Urine Output: None, no | | Nieto.Estimated Blood Loss: 250 mL.Drains: Two 19-Georgian Bk drains to the anterior | | abdominal wall with 1 drain along each gutter and one 15-Georgian Bk drain along the | | midline.Complications: [...] a 2 cm rectus diastasis. Therefore, a Diafo-gr-Uvi abdominoplasty, | | wedge monsplasty, and trunk [...] suture in a | | buried interrupted noqwfr-as-lceta fashion. Two 19-Georgian Bk drains were then placed | | in the anterior abdominal wall with one drain along each gutter, and one 15-Georgian | | Bk drain was placed in [...] 12/16/2018 19:23:55DT: 12/16/2018 20:19:22Job #: | | [id number] | |informed of the intraoperative findings. | | | |Corine Olguin MD | |SC/MODL | | | | | | /[id number] | + + CAPILLARY BLOOD GLUCOSE (NO CHG), POC (12/16/2018 5:49 PM PST) + +---------+ + + + | Component | Value | Ref Range | Performed | Pathologist | | | | | At | Signature | + +---------+ + + + | BLOOD | 203 (H) | 60 - 99 mg/dL | [facility] - | | | GLUCOSE, | | [...] [facility] | [address] | [place], [place] | | | RACHEL POINT OF CARE | [address] | [address] | | | TESTS | | | [...] DAMARIS | [address] | [place], [place] | | | [place] | [address] | [address] | | | TESTS | | | [...] ARIN [facility] | [address] | [place], [place] | | | RACHEL [facility] | [address] | [address] | | | TESTS | | | [...] PST | | | | | Starting [facility] 12/16/18 at 0718, | | | [...] intravenous, POSTPROCEDURE PRN, | | | Starting [facility] 12/16/18 at 0831, | | | Until Thu12/17/18 at 0013, | | | hypopnea | | + +---+ | | | + +---+ | ondansetron (ZOFRAN) injection | | | 4 mg 4 mg, intravenous, | | | POSTPROCEDURE PRN, 1 dose, | | | Starting [facility] 12/16/18 at 0831, | | | [...] | | | | | NEEDED, Starting [facility] 12/16/18 at | | | | | | | 1239, Until Thu12/17/18 at 0013, | | | | | | | severe pain | | | | | | + +-------+ +-------+---+---+ + +---+ | | | + +---+ | oxyCODONE (immediate release) | | | (ROXICODONE) tablet 1 dose, | | | Starting [facility] 12/16/18 at 1357, | | | Until [facility] 12/16/18 at 1359 | | + [...]
--- OUTSIDE RECORDS SUMMARY | ~2019-09-04 | XMS | Encounter Summary ---
Demographics + + + | Address | [address] | | | [place] [address] | + + + | Home Phone | | + + + | Preferred Language | Unknown | + + + | Marital Status | | + + + | Adventist Affiliation | CAT | + + + [...] Team Providers + +------+ + | Care Allocations Clerk Name | Role | Phone | + +------+ + | Shwetha Joseph PRESIDENT AND CEO | PCP | | + +------+ + [...] skin and | Miesha Nielsen | [place], | | | | | subcutaneous | [facility] [place], [place] | [place] | | | | | tissue | [address] | [address] | | | | | Rash and | Phone: | Phone: | | | | | other | [phone] | [phone] | | | | | nonspecific | Fax: | Fax: | | | | | skin | [phone] | [phone] | | | | | eruption | [...] | | | | | | | Wydpk-xr-zkz | | | | | | | [...] | | | | | | | [address], | | | | | | | [address], | | | | | | | [address], [address] | | | | | | | L98.7 | | | | | | | E88.1 R21 | | | | | | | M62.08 | | | | | | | Procedures | | | | | | | REQUEST TO | | | | | | | SURGERY | | | | | | | TRAFFIC MAINTENANCE SUPERVISOR | | | | | | | CA EXC SKIN | | | | | | | ABD CA EXC | | | | | | | SKIN ABD | | | | | | | ADD-ON CA | | | | | | | EXCISE | | | | | | | EXCESS SKIN | | | | | | | TISSUE,OTHER | | | | | | | CA SUCT | | | | | | [...] | Surgery | Other | Shwetha Granado, PRESIDENT AND CEO | MD Sammie | | | | | obesity | Family | [address] [facility] | | | | | | Health | [address] | | | | | | Associates | [place], [place] | | | | | | [address] | [address] | | | | | | [address] | Phone: | | | | | | [place], | [phone] | | | | | | [place] [address] | Fax: | | | | | | Phone: | [phone] | | | | | | [phone] | | | | | | | Fax: | | | | | | | [phone] | | +--------+--------+ + + + + Encounter Details +--------+---------+ + + + | Date | Type | Department | Care Team | Description | +--------+---------+ + + + | 09/06/ | Office | Plastic and | Corine Olguin, | Lipodystrophy | | 2018 | Visit | Reconstructive | [address] | (Primary Dx); Type 2 | | | | Surgery at [facility] [address] | diabetes mellitus | | | | [address] | [place], [place] | without | | | | Mailcode: [facility] | [address] | complication, | | | | [facility] | [phone] | unspecified whether | | | | and Healing, | | fdc insulin | | | | Building [address] | | use ([facility]); Heart | | | | Floor [place], [place] | | murmur; | | | | [address] | | Intertriginous | | | | [phone] | | dermatitis | | | | [...] Corine Olguin MD - 09/06/2018 11:30 AM [id number] [employer]. Purchasers of the Patient Consultation Resource Book are given a [employer] license to modify documents contained herein and reproduce the modified version for use in the [employer]'s own practice only. All other rights are reserved by [employer]. Purchasers may not sell or allow any other republican to use any version of the Patient [...] ear the surgical site can appear either pad hand or darker than surrounding skin. Although u [...] Smoke Exposure, Nicotine Products (Patch, Gum, Nasal [place]): Patients who are currently smoking or use [...] occu r as the result of taking zfuc-qzo-qmzrdck, herbal, and/or prescription medications. Aspirin and medications [...] who currently wear body-piercing jewelry in the [facility] region are advised that an infection [...] may be covered if approval from your [facility] Insurance Provider is obtained in advance. Occassionally, [...] the needs of most patients in most [facility]. 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 Call our office immediately [...] reviewed with the patient and scanned into Quipper. All ne gative findings except as noted [...] not limited to, panniculectomy, monsplasty, extended panniculectomy, Katiw-od-fwo abdomin oplasty, traditional abdominoplasty, liposuction, etc. Recommend Zbflg-ya-ies abdominoplast y with monsplasty and liposuction. The [...] Olguin MD PLASTIC AND RECONSTRUCTIVE SURGERY AT [facility] [address] Mail Code: [place] [address] documented in this en counter Plan of Treatment +--------+---------+ + + + | Date | Type | Specialty | Care Team | Description | +--------+---------+ + + + | 02/05/ | Office | Plastic Surgery | Corine Olguin, | | | 2019 | Visit | | [address] [facility] | | | | | | [address] | | | | | | [place], [place] | | | | | | [address] | | | | | | [phone] | | | | | | | | +--------+---------+ + + + documented as of this encounter Visit Diagnoses + + | Diagnosis | + + | Lipodystrophy - Primary | + + | Type 2 diabetes mellitus without complication, unspecified whether fdc insulin | | use (HCC) | + + | Heart murmur Undiagnosed cardiac murmurs | + + | Intertriginous dermatitis associated with moisture | + + | Bilateral leg edema Edema | + + documented in this encounter
--- OUTSIDE RECORDS SUMMARY | ~2019-09-04 | XMS | Encounter Summary ---
Demographics + + + | Address | [address] | | | [place] [address] | + + + | Home Phone | | + + + | Preferred Language | Unknown | + + + | Marital Status | | + + + | Baptism Affiliation | CAT | + + + | Race | White | + + + | Ethnic Group | Not or | + + + Author + + + | Author | [facility] | + + + | Organization | [facility] | + + + | Address | Unknown | + + + | Phone | Unavailable | + + + Support + + +---------+ + | Name | Relationship | Address | Phone | + + +---------+ + | Ranjana Shell | ECON | Unknown | | + + +---------+ + Care Team Providers + +------+ + | Care Screen Examiner Name | Role | Phone | + [...] | | | | | Surgery at [facility] [address] | | | | | [address] | [place], [place] | | | | | Mailcode: [facility] | [address] | | | | | [facility] | [phone] | | | | | and Healing, | | | | | | [facility] | | | | | | [place], [place] | | | | | | [address] | | | | | | [phone] | | | +--------+ + + + [...] Rd | | | | | | [place], [place] | | | | | | [address] | | | | | | [phone] | | | | | | | | +--------+---------+ + + + documented as of this encounter Visit Diagnoses Not on filedocumented in this encounter"
--- OUTSIDE RECORDS SUMMARY | ~2019-09-04 | XMS | Encounter Summary ---
Demographics + + + | Address | [address] | | | [place] [address] | + + + | Home Phone | | + + + | Preferred Language | Unknown | + + + | Marital Status | | + + + | Mandaen Affiliation | CAT | + + + | Race | White | + + + | Ethnic Group | Not or | + + + Author + + + | Author | [facility] | + + + | Organization | [facility] | + + + | Address | Unknown | + + + | Phone | Unavailable | + + + Support + + +---------+ + | Name | Relationship | Address | Phone | + + +---------+ + | Ranjana Shell | ECON | Unknown | | + + +---------+ + Care Team Providers + +------+ + | Care Trim Line Worker Name | Role | Phone | + +------+ + | Shwetha JosephP | PCP | | + +------+ + Reason for Visit + + + | Reason | Comments | + + + | Pre-op evaluation | | + + + Encounter Details +--------+ + + + + | Date | Type | Department | Care Team | Description | +--------+ + + + + | 12/08/ | Telephone-S | Preoperative | | Pre-op evaluation | | 2019 | cheduled | Medicine Clinic at | | | | | | [facility] 4th Day | | | | | | Stay [address] [facility] | | | | | | [address] | | | | | | Mailcode: [id number] | | | | | | [address] | | | | | | [address] [place], [place] | | | | | | [address] | | | | | | [phone] | | | +--------+ + + + + Anesthesia Record + + + + + | Procedure Name | Responsible | Anesthesia Start | Anesthesia Stop Time | | | Anesthesiologist | Time | | + + + + + | ANN | Gallito Arango MD | 12/16/18 0734 | 12/16/18 [...] | | | 7 | | reviewed, PARGómez held, anesthetic plan made or approved by [...] | Meds | +------+ + + + No medications | on file. | + + + + + | No agents on file. | + + + + | No [...] + + | Periph | 12/16/18; 716; preop RN; Right; | 12/16/18716 by | 12/16/181756 by | | eral | Dorsal; Wrist; 20 g; Positive; | Nelson Wooten | Nasrin Trevino RN | | IV | 12/16/18; 1756; Discharge | MD Pavel | | +--------+ + + + | ETT | 12/16/18; 0741 (created via | 12/16/18 0741 by | 12/16/18 1300 by | | | procedure documentation); | Nelson Wooten | Nelson Wooten | | | Endotracheal Tube; 7; [...] + + documented as of this encounter Patient Instructions Patient Instructions Gwendolyn Patel RN - 12/06/2018 2:23 PM PST PREOPERATIVE INSTRUCTIONS Do not eat or drink anything after midnight the night before surgery. TAKE the following medications with a sip of water on the morning of surgery: OMEPRAZOLE 20 MG CAPSULE,DELAYED RELEASE Do NOT take the following medications on the morning of surgery: FUROSEMIDE 20 MG TABLET LISDEXAMFETAMINE 50 MG CAPSULE LOSARTAN 25 MG TABLET VICTOZA 3-IRENA 0.6 MG/0.1 ML (18 MG/3 ML) SUBCUTANEOUS PEN INJECTOR One day before surgery: While still eating a normal diet, take all your usual diabetes medications including ins ulin up to and including doses taken with supper If you take Lantus, NPH or Levemir (detemir) insulin at bedtime: take your usual bedt ailyn dose On the morning of surgery: Do not take any oral diabetes medications (pills); do not take Byetta or Symlin injectio ns Check your blood sugars The night before surgery. When you wake up and every 4 hours until you arrive at the hospital on the day of your p rocedure. If you have low blood sugars (less than 70) while you are fasting 1. Take 4 glucose tablets 2. Wait 15 minutes, and then recheck your sugar 3. If it is still less than 70, repeat treatment until the level is over 70 4. When you get to the hospital, report what time you had a low blood sugar 5. If you do not have glucose tablets, you can drink 4 ounces of clear liquid (apple juice, day gregory); however your surgery may be delayed a few hours. If your blood sugars are higher than 250 on the morning of surgery and you have an insul in "sliding scale" correction regimen, please follow it to correct the high blood sugar. Additional medication instructions: Do not take any Aspirin, vitamin E or non-steroidal anti-inflammatory (NSAIDs i.e. Advil , Aleve, Ibuprofen) or herbal supplements seven days prior to your surgery. These drugs may interfere with normal blood clotting and may cause excessive bleeding and bruising during or after the surgery. Please see the list below for more products that contain Aspirin, Ibupro fen, or Vitamin E If you are taking Coumadin (warfarin), Plavix or any other blood thinners please let you r surgical team know as medication changes will be necessary. If you need a pain medication for general purposes, use Tylenol as directed. If you are in doubt about any medications that you are taking, please contact our office . Important Guidelines: Do not smoke, drink alcohol or use recreational drugs for 24 hours before your surgery Do not eat any hard candy or chew gum after midnight the night before your surgery. Watch for any change in your health condition. Let your surgeon know right away if you do not feel well. Do not wear makeup, perfume, lotions or powder. Remove any nail swedish from at least one fingernail. Do not wear any jewelry to the hospital. Wear loose, comfortable clothing. Bring the case and solution for your contact lenses or wear your glasses. Leave all your valuables at home. Allow enough travel time so you re not late for your check in for surgery. Take a bath or shower and remember to shampoo your hair using your usual hair product be fore your arrival at the hospital. Please remember to brush your teeth the night before and the morning of your procedure. Pain management after surgery Following surgery, at regular intervals, your nurse will ask you to rate your pain on a scale of 0-10 (0 is no pain and 10 is the worst pain you can imagine). A variety of pain management strategies may be appropriate, such as intravenous medicati ons, oral medications, peripheral nerve bocks or epidural catheters that can deliver local a nesthetic to cover the area of your surgical incision. Please discuss this with your anesth esiologist to receive additional information about what might be appropriate for you. The goal for pain control therapy is to be comfortable enough to change your position, c ough and take deep breaths. You will be asked to do such activities to help prevent complic ations. Things to do after surgery (hospitalized patients) Use an incentive spirometer or peep breathe to keep your lungs working properly an d to help prevent respiratory complications. It helps you take long, deep breaths. Use it at least once every hour while you are awake. Leg and feet exercises will maintain good circulation and help prevent blood clots in yo ur legs. Sometimes your doctor will order air compression stockings. Compressed air helps the circulation in your legs. Walking and moving will help stimulate normal circulation and deep breathing. After you r surgery, your nurse may ask you to sit, stand or walk. Check in locations Day Stay [facility] - [phone], [facility], fourth floor Room 4519 Surgery Check in Time Check-in times for Hospital Admissions are not available until the day prior to surgery. So meone from your surgeon's office or the hospital will contact you with your check in time. I f you do not hear from anyone by 3:00 PM please call your surgeons' office for [id number]-cd-ilmt . Going Home Your surgical team will decide when you are medically ready to go home. If you are released to go home on the same day as your procedure/surgery please note the following: You will not be able to drive. You will be required to have a competent adult drive you or accompany you by taxi or pub lic transportation on the day of discharge. It is also required that you have a competent adult assist you and look after you on the first night after you have undergone regional blocks (72 hours for patients going home with regional block pump), deep sedation, and/or general anesthesia. If you have questions or concerns after you go home, call your doctor s office. If it is after office hours, call the [facility] activated sludge operator at [phone] and ask them to page your doctor . documented in this encounter Plan of Treatment +--------+---------+ + + + | Date | Type | Specialty | Care Team | Description | +--------+---------+ + + + | 02/05/ | Office | Plastic Surgery | Corine Olguin, | | | 2019 | Visit | | [address] | | | | | | [address] | | | | | | [place], [place] | | | | | | [address] | | | | | | [phone] | | | | | | | | +--------+---------+ + + + documented as of this encounter Visit Diagnoses Not on filedocumented in this encounter
--- OUTSIDE RECORDS SUMMARY | ~2019-09-04 | XMS | Encounter Summary ---
Demographics + + + | Address | [address] | | | [place] [address] | + + + | Home Phone | | + + + | Preferred Language | Unknown | + + + | Marital Status | | + + + | Taoist Affiliation | CAT | + + + [...] Team Providers + +------+ + | Care Ui Ux Engineer Name | Role | Phone | + +------+ + | Shwetha JosephP | PCP | | + +------+ + Reason for Visit + + + | Reason | Comments | + + + | Refill Request | | + + + Encounter Details +--------+--------+ + + + | Date | Type | Department | Care Team | Description | +--------+--------+ + + + | 12/22/ | Refill | Plastic and | Corine Olguin, | Refill Request | | 2019 | | Reconstructive | [address] | | | | | Surgery at [facility] [address] | | | | | [address] | [place], [place] | | | | | Mailcode: [place] | [address] | | | | | [facility] | [phone] | | | | | and [address], | | | | | | Building | | | | | | Floor [facility] [place] | | | | | | [address] | | | | | | [phone] | | | +--------+--------+ + + + Social History + +-------+ [...] [address] | | | | | | [place], [place] | | | | | | [address] | | | | | | [phone] | | | | | | | | +--------+---------+ + + + documented as of this encounter Visit Diagnoses + + | Diagnosis | + + | Post-op pain - Primary Other acute postoperative pain | + + documented in this encounter"
--- OUTSIDE RECORDS SUMMARY | ~2019-09-04 | XMS | Encounter Summary ---
Demographics + + + | Address | [address] | | | [place] [address] | + + + | Home Phone | | + + + | Preferred Language | Unknown | + + + | Marital Status | | + + + | Uatsdin Affiliation | CAT | + + + | Race | White | + + + | Ethnic Group | Not or | + + + Author + + + | Author | [facility] | + + + | Organization | [facility] | + + + | Address | Unknown | + + + | Phone | Unavailable | + + + Support + + +---------+ + | Name | Relationship | Address | Phone | + + +---------+ + | Ranjana Shell | ECON | Unknown | | + + +---------+ + Care Team Providers + +------+ + | Care Pellet Machine Operator Name | Role | Phone [...] Pharmacy | | | | | | [address] | | | | | | [place], | | | | | | [place] [address] | | | +--------+ + + + [...] Rd | | | | | | [place], [place] | | | | | | [address] | | | | | | [phone] | | | | | | | | +--------+---------+ + + + documented as of this encounter Visit Diagnoses Not on filedocumented in this encounter"
--- OUTSIDE RECORDS SUMMARY | ~2019-09-04 | XMS | Encounter Summary ---
Demographics + + + | Address | [address] | | | [place] [address] | + + + | Home Phone [...] + + + | Author | [facility] | + + + | Organization | [facility] | + + + | Address | Unknown | + + + | Phone | Unavailable | + + + Support + + +---------+ + | Name | Relationship | Address | Phone | + + +---------+ + | Ranjana Shell | ECON | Unknown | | + + +---------+ + Care Team Providers + +------+ + | Care Search And Rescue Officer Name | Role | Phone | + +------+ + | Shwetha Joseph FOLDER MACHINE | PCP | | + +------+ + Reason for Visit +--------+ + | Reason | Comments | +--------+ + | Other | | +--------+ + Encounter Details +--------+ + + + + | Date | Type | Department | Care Team | Description | +--------+ + + + + | 01/04/ | Telephone | Preoperative | Kathy Olivas, | Other | | 2019 | | Medicine Clinic at | FOLDER MACHINE [address] | | | | | [facility] 4th Floor Day | [place], [place] | | | | | Stay [address] [facility] | [address] | | | | | [address] | [phone] | | | | | Mailcode: [id number] | | | | | | [address] | | | | | | [address] [place], [place] | | | | | | [address] | | | | | | [phone] | | | +--------+ + + + [...] [address] | | | | | | [place], [place] | | | | | | [address] | | | | | | [phone] | | | | | | | | +--------+---------+ + + + documented as of this encounter Visit Diagnoses Not on filedocumented in this encounter"
--- OUTSIDE RECORDS SUMMARY | ~2019-09-04 | XMS | Encounter Summary ---
Demographics + + + | Address | [address] | | | [place] [address] | + + + | Home Phone [...] + + + | Author | [facility] | + + + | Organization | [facility] | + + + | Address | Unknown | + + + | Phone | Unavailable | + + + Support + + +---------+ + | Name | Relationship | Address | Phone | + + +---------+ + | Ranjana Shell | ECON | Unknown | | + + +---------+ + Care Team Providers + +------+ + | Care Photostat Operator Name | Role | Phone | [...] | | [facility] | [address] [place], | | | | | Surgery Admitting | [place] [address] | | | | | Desk Located on the | [phone] | | | | | 4th floor, Room | | | | | | [address] [place], [place] | | | | | | [address] | | | +--------+ + + + [...] | | 2019 | Visit | | [address] | | | | | | [address] | | | | | | [place], [place] | | | | | | [address] | | | | | | [phone] | | | | | | | [...] | | | | INTRAPROCEDURE PRN, Starting Ardiana | | 19 11:27 | | | [...]
--- OUTSIDE RECORDS SUMMARY | ~2019-09-04 | XMS | Clinical Summary ---
Demographics + + + | Address | [address] | | | [place] [address] | + + + | Home Phone | | + + + | Preferred Language | Unknown | + + + | Marital Status | | + + + | Baptist Affiliation | 1041 | + + + | Race | Unknown | + + + | Ethnic Group | Unknown | + + + Author + + + | Author | [facility] (Historical as of | | | 07-16-19) | + + + | Organization | [facility] (Historical as of | | | 07-16-19) | + + + | Address | Unknown | + + + | Phone | Unavailable | + + + Support + + + + + | Name | Relationship | Address | Phone | + + + + + | Mora,Jacinta | ECON | NONE | | | | | [place] [address] | | + + + + + Care Team Providers + +------+ + | Care Ed Tech Name | Role | Phone | [...] +------+-------+ + | PREMERA | PREMER | [id number] | | | [address] [address] | | | A BLUE | 6 | | | [place] | | | CARD | | | | [address] | +---------+--------+ +------+-------+ + + +--------+ +--------+ [...] | 1965 | [phone] | [place] [address] | | | [address] | | | [address] | | + +--------+ +--------+ + +
--- OUTSIDE RECORDS SUMMARY | ~2019-09-04 | XMS | Encounter Summary ---
Demographics + + + | Address | [address] | | | [place] [address] | + + + | Home Phone | | + + + | Preferred Language | Unknown | + + + | Marital Status | | + + + | Holiness Affiliation | CAT | + + + | Race | White | + + + | Ethnic Group | Not or | + + + Author + + + | Author | [facility] | + + + | Organization | [facility] | + + + | Address | Unknown | + + + | Phone | Unavailable | + + + Support + + +---------+ + | Name | Relationship | Address | Phone | + + +---------+ + | Ranjana Shell | ECON | Unknown | | + + +---------+ + Care Team Providers + +------+ + | Care Maintenance Of Way Foreman Name | Role | Phone | + [...] | | | | | Surgery at [facility] [address] | | | | | [address] | [place], [place] | | | | | Mailcode: [place] | [address] | | | | | [facility] | [phone] | | | | | and [address], | | | | | | Building | | | | | | Floor [facility] [place] | | | | | | [address] | | | | | | [phone] | | | +--------+--------+ + + + [...] Rd | | | | | | [place], [place] | | | | | | [address] | | | | | | [phone] | | | | | | | | +--------+---------+ + + + documented as of this encounter Visit Diagnoses + + | Diagnosis | + + | Post-op pain - Primary Other acute postoperative pain | + + documented in this encounter"
--- OUTSIDE RECORDS SUMMARY | ~2019-09-04 | XMS | Encounter Summary ---
Demographics + + + | Address | [address] | | | [place] [address] | + + + | Home Phone | | + + + | Preferred Language | Unknown | + + + | Marital Status | | + + + | Zoroastrianism Affiliation | CAT | + + + [...] Team Providers + +------+ + | Care Java Programmer Name | Role | Phone | + [...] (drain) | | | | Surgery at [facility] [address] [facility] | | | | | [address] | [place], [place] | | | | | Mailcode: [facility] | [address] | | | | | [facility] | [phone] | | | | | and Healing, | | | | | | Building [address], 5th | | | | | | Floor [place], [place] | | | | | | [address] | | | | | | [phone] | | | +--------+ + + + [...] Rd | | | | | | [place], [place] | | | | | | [address] | | | | | | [phone] | | | | | | | | +--------+---------+ + + + documented as of this encounter Visit Diagnoses Not on filedocumented in this encounter"
--- OUTSIDE RECORDS SUMMARY | ~2019-09-04 | XMS | Encounter Summary ---
Demographics + + + | Address | [address] | | | [place] [address] | + + + | Home Phone [...] Team Providers + +------+ + | Care Shell Assembler Name | Role | Phone | + [...] | | | | | Surgery at [facility] [address] | | | | | [address] | [place], [place] | | | | | Mailcode: [place] | [address] | | | | | [facility] | [phone] | | | | | and Healing, | | | | | | Building [address], | | | | | | Floor [place], [place] | | | | | | [address] | | | | | | [phone] | | | +--------+ + + + [...] Rd | | | | | | [place] | | | | | | [address] | | | | | | [phone] | | | | | | | | +--------+---------+ + + + documented as of this encounter Visit Diagnoses Not on filedocumented in this encounter"
--- OUTSIDE RECORDS SUMMARY | ~2019-09-04 | XMS | Encounter Summary ---
Demographics + + + | Address | [address] | | | [place] [address] | + + + | Home Phone | | + + + | Preferred Language | Unknown | + + + | Marital Status | | + + + | Advent Affiliation | CAT | + + + | Race | White | + + + | Ethnic Group | Not or | + + + Author + + + | Author | [facility] | + + + | Organization | [facility] | + + + | Address | Unknown | + + + | Phone | Unavailable | + + + Support + + +---------+ + | Name | Relationship | Address | Phone | + + +---------+ + | Ranjana Shell | ECON | Unknown | | + + +---------+ + Care Team Providers + +------+ + | Care Rubber Goods Inspector Tester Name | Role | Phone | + [...] | | | | | Stay [address] [facility] | | | | | | [address] | | | | | | Mailcode: [id number] | | | | | | [address] | | | | | | [address] [place], [place] | | | | | | [address] | | | | | | [phone] | | | +--------+ + + + [...] perfume, lotions or powder. Remove any nail greenlandic from at least one fingernail. Do not [...] or walk. Check in locations Day Stay [facility] - [phone], [facility], fourth floor Room 4519 Surgery Check in Time Check-in times for Hospital Admissions are not available until the day prior to surgery. So meone from your surgeon's office or the hospital will contact you with your check in time. I f you do not hear from anyone by 3:00 PM please call your surgeons' office for [id number] . Going Home Your surgical team will [...] it is after office hours, call the [facility] braze operator at [phone] and ask them to page your doctor [...] Rd | | | | | | [place], [place] | | | | | | [address] | | | | | | [phone] | | | | | | | | +--------+---------+ + + + documented as of this encounter Visit Diagnoses Not on filedocumented in this encounter
--- OUTSIDE RECORDS SUMMARY | ~2019-09-04 | XMS | Encounter Summary ---
Demographics + + + | Address | [address] | | | [place] [address] | + + + | Home Phone | | + + + | Preferred Language | Unknown | + + + | Marital Status | | + + + | Anabaptist Affiliation | CAT | + + + [...] Team Providers + +------+ + | Care Skip Loader Name | Role | Phone | + +------+ + | Shwetha JosephP | PCP | | + +------+ + Encounter Details +--------+ + + + + | Date | Type | Department | Care Team | Description | +--------+ + + + + | 12/16/ | Procedure | 4[address] INTRA OP [address] | | | | 2019 | Pass | [address] [facility] | | | | | | [address] | | | | | | [facility] | | | | | | Surgery Admitting | | | | | | Desk Located on the | | | | | | 4th floor, Room | | | | | | [address] [facility] [place] | | | | | | [address] | | | +--------+ + + + [...] Rd | | | | | | [place] | | | | | | [address] | | | | | | [phone] | | | | | | | | +--------+---------+ + + + documented as of this encounter Visit Diagnoses Not on filedocumented in this encounter"
--- OUTSIDE RECORDS SUMMARY | 2019-09-04 16:42 | XMS ---
PreManage Notification: MAYLIN SMALLS Security Assistant Research Scientist Events No recent Security Events currently on file CRITERIA MET - PDMP CARE PROVIDERS Shwetha Joseph Nurse Practitioner: Family Current STAGE SETTINGS PAINTER PHONE: Unknown Shwetha Joseph Treatment Current STAGE SETTINGS PAINTER PHONE: Unknown Ian has no Care Guidelines for this patient. Leti VISIT COUNT (12 MO.) 1 LEIA Weber TOTAL 1 NOTE: Visits indicate total known visits. ED/UCC VISIT TRACKING (12 MO.) 09/04/2019 16:41 [place] TYPE: Emergency COMPLAINT: - ABD PAIN INPATIENT VISIT TRACKING (12 MO.) No inpatient visits to display in this time frame [email or web address]
[2019-09-04] MEDS ORDERED: LOSARTAN POTASS50 MG PO (17:07)
[2019-09-04] MEDS ORDERED: FUROSEMIDE20 MG PO (17:07)
[2019-09-04] MEDS ORDERED: TRULICITY1.5 MG/0.5 SUB-Q (17:08)
[2019-09-04] MEDS ORDERED: VYVANSE50 MG PO (17:09)
[2019-09-04] MEDS ORDERED: PROTONIX40 MG PO (20:28)
== END 2019-09-04 20:39 | disposition home or self-care (01) ==
LOC: ED 16:40
DX: R10.9 Unspecified abdominal pain (principal); R10.11 Right upper quadrant pain
CPT/HCPCS: 74177; 76705; 80053; 81001; 83690; 83735; 85025; 96361; 96374; 96375; 96376; 99284-25; J1170; J1885; J2405; J7030; Q9967

== ENCOUNTER 2021-03-15 06:20 | Day surgery (SDC) | payer OTHER ==
--- NOTE | 2021-02-24 18:32 | NUR ---
PATIENT CALLED SOUND ENGINEER AUDIO CONTROL TO REQUEST TO CANCELL PROCEDURE. PATIENT EXPLAINS THAT SHE IS A DIABETIC AND UNABLE TO GO WITHOUT FOOD FOR A LOG PERIOD OF TIME WITHOUT HAVING "SOLID FOOD" ON HER STOMACH. 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 PATIENT WISHES TO CANCEL. INSTRUCTED TO CALL PHYSICIANS OFFICE TOMORROW. DR WINTERS NOTIFIED
[~2021-03-15] VITALS: Ht 160 cm; Wt 79.0 kg
[~2021-03-15 06:20] MED LIST: FUROSEMIDE20 MG PO; LOSARTAN POTASS50 MG PO; PROTONIX40 MG PO; TRULICITY1.5 MG/0.5 SUB-Q; VYVANSE50 MG PO
[2021-03-15] MEDS ORDERED: DEXTROAMP-AMPHET5 MG PO (06:50)
[2021-03-15] MEDS ORDERED: CEPHALEXIN250 MG PO (06:56)
[2021-03-15] MEDS ORDERED: GLIMEPIRIDE2 MG PO (06:57)
[2021-03-15] MEDS ORDERED: OXYBUTYNIN CHLOR5 M1 PO (06:57)
[2021-03-15] MEDS ORDERED: GLIMEPIRIDE4 MG PO (06:57)
[2021-03-15] MEDS ORDERED: ONDANSETRON HCL8 MG PO (06:58)
[2021-03-15] MEDS ORDERED: SUMATRIPTAN SU100 MG PO (07:00)
--- NOTE | 2021-03-15 08:31 | NUR ---
03/15/21 0831 Maira Mensah 0839 PATIENT ARRIVES TO PACU AWAKE OFF/ON, BUT DROWSY. PASSING GAS. DENIES PAIN OR NAUSEA. RESP EVEN AND UNLABORED, ROOM AIR SATS >90%.
--- NOTE | 2021-03-15 13:48 | OR ---
[facility] [address] [place], [place] [address] Signed DATE OF OPERATION: 03/15/2021 SURGEON: Robin Winters MD PREOPERATIVE DIAGNOSES: 1. Upper abdominal pain and bloating, diagnosis of gastroparesis by solid emptying study, 2019. 2. Constipation. POSTOPERATIVE DIAGNOSES: 1. Small hiatal hernia without esophagitis; gastric polyps. 2. Sigmoid diverticulosis. PROCEDURE: 1. Esophagogastroduodenoscopy with biopsy. 2. Total colonoscopy to cecum. ANESTHESIA: Intravenous sedation, fentanyl 175 mcg and Versed 7 mg. INDICATION: This 55-year-old woman is a patient of JEREMIAH Regalado in [place], [place]. The patient has had complaints of bloating, abdominal pain and reflux symptoms. She is on Protonix, which she takes daily. She has been diagnosis with "gastroparesis" based on a solid food emptying study performed in 2019 at [facility]. Dietary modification has been beneficial to her in management of this disease. She is on no medications at this time, but has been on Prilosec. Additionally, she complains of constipation. She is admitted at this time to undergo upper endoscopy and colonoscopy to better characterize her problem. She understands the risks of bleeding, infection, and perforation and wished to proceed. FINDINGS: Upper endoscopy showed small hiatal hernia, but no esophagitis. The stomach appeared reasonably normal. CLOtest was negative 15 minutes postprocedure. Colonoscopy showed a well prepped colon. Complete colonoscopy was undertaken of the cecum without question. There are numerous diverticula of the sigmoid and left colon. There was no sign of polyps, colitis or cancer. DESCRIPTION OF PROCEDURE: Electronically Signed By: ROBIN WINTERS MD 03/15/21 1348 PATIENT NAME: MAYLIN SMALLS OPERATIVE REPORT DATE OF : 65 REPORT #: [id number] PHYSICIAN: ROBIN WINTERS MD PCP: KEYANNA ROMO REPORT IS CONFIDENTIAL AND NOT TO BE RELEASED WITHOUT AUTHORIZATION [facility] [address], [place] [address] Signed The patient was brought to the endoscopy suite, given topical lidocaine spray anesthesia, placed in lateral decubitus position, given intravenous sedation to the point of slurred speech and nystagmus with full cardiopulmonary monitoring. A bite block was placed. An Olympus video upper endoscope was passed in the hypopharynx. The vocal cords appeared normal. Scope was advanced to the esophagus without problem. The scope was advanced throughout the esophagus showing no sign of inflammation or Mays's epithelium or stricture. The scope was passed to the stomach, which was insufflated with air. There was no evidence of bile in the stomach. Rugal folds appeared normal. Motility was difficult to determine. The stomach was not dilated however. There were polyps in both the antrum and more proximal stomach likely related to chronic PPI use. The pylorus was normal. Scope was passed through into the duodenum, which was normal. Biopsies were obtained to assess for celiac disease. The scope was withdrawn and biopsy undertaken along the gastric polyps as well as biopsies of the antrum for LOC and pathologic testing. Retroflexed view showed relatively small hiatal hernia. The scope was withdrawn in the distal esophagus. Biopsies were obtained there as well as the mid esophagus. Scope was removed. Plans were then made for colonoscopy. Additional sedation was given. Digital rectal examination performed, which was normal. An Olympus video colonoscope was passed in the rectum and manipulated throughout the colon noting numerous diverticula of the sigmoid and left colon. Scope was ultimately passed to the cecum. Ileocecal valve and appendiceal orifice were normal. Scope was withdrawn from that point. Examination throughout showed no sign of polyps or colitis, only diverticular changes as noted. Retroflexed view of the rectum was normal. Scope was removed. The patient was taken to the recovery room in good condition. CONCLUDING DIAGNOSES: 1. Clinical and radiographic evidence of gastroparesis, hiatal hernia and no evidence currently of esophagitis. We will recommend continued use of Protonix. 2. Constipation, most likely related to diverticulosis. I would recommend a fiber supplement, Metamucil or Citrucel one scoop daily with increased fluids. She will return to the ongoing care of JEREMIAH Regalado. MD CAROLYNE Quintero/MODL /[id number] Electronically Signed By: ROBIN WINTERS MD 03/15/21 1348 PATIENT NAME: MAYLIN SMALLS OPERATIVE REPORT DATE OF : 65 REPORT #: [id number] PHYSICIAN: ROBIN WINTERS MD PCP: KEYANNA ROMO REPORT IS CONFIDENTIAL AND NOT TO BE RELEASED WITHOUT AUTHORIZATION [address] [address] Signed cc: JEREMIAH Regalado Copies: KEYANNA ROMO ~ Electronically Signed By: ROBIN WINTERS MD 03/15/21 1348 PATIENT NAME: MAYLIN SMALLS OPERATIVE REPORT DATE OF : 65 REPORT #: [id number] PHYSICIAN: ROBIN WINTERS MD PCP: KEYANNA ROMO REPORT IS CONFIDENTIAL AND NOT TO BE RELEASED WITHOUT AUTHORIZATION
--- NOTE | 2021-03-21 13:33 | PATH ---
[facility] [address] [place], [place] [address] Signed SPECIMEN(S): A DUODENAL BIOPSY SPECIMEN(S): B ANTRUM SPECIMEN(S): C STOMACH POLYP SPECIMEN(S): D DISTAL ESOPHAGUS SPECIMEN(S): E MIDDLE ESOPHAGUS SPECIMEN SOURCE: A. DUODENAL BIOPSY B. ANTRUM C. STOMACH POLYP D. DISTAL ESOPHAGUS E. MIDDLE ESOPHAGUS CLINICAL HISTORY: GERD; dysphasia; constipation MICROSCOPIC DESCRIPTION: Histologic sections of all submitted blocks are examined by light microscopy. These findings, together with the gross examination, support the pathologic diagnosis. FINAL PATHOLOGIC DIAGNOSIS: A. Duodenum, biopsy: - Duodenal mucosa with no histopathologic abnormality. - Negative for increased intraepithelial lymphocytes or villous blunting. - Negative for dysplasia or malignancy. B. Stomach, antrum, biopsy: - Antral/oxyntic mucosa with mild chronic, inactive gastritis. - Negative for Helicobacter organisms on HE stain. - Negative for dysplasia or malignancy. C. Stomach, polyp, polypectomy: - Antral mucosa with mild chronic, inactive gastritis. - Negative for Helicobacter organisms on HE stain. - Negative for dysplasia or malignancy. D. Esophagus, distal, biopsy: - Squamocolumnar junctional mucosa with increased intraepithelial eosinophils and reactive changes. - Negative for intestinal metaplasia, dysplasia, or malignancy. - See comment. E. Esophagus, middle, biopsy: - Squamous mucosa with no histopathologic abnormality. - Negative for increased intraepithelial eosinophils. PATIENT NAME: MAYLIN MORA PATHOLOGY DATE OF : 65 REPORT #: [id number] PHYSICIAN: BERT MOODY PCP: KEYANNA ROMO REPORT IS CONFIDENTIAL AND NOT TO BE RELEASED WITHOUT AUTHORIZATION [facility] [address] [place], [place] [address] Signed - Negative for dysplasia or malignancy. COMMENT: Regarding specimen D: Sections demonstrate squamocolumnar junctional mucosa with focal increased intraepithelial eosinophils (up to 65 seen per high power field), eosinophil degranulation, spongiosis, and basal cell hyperplasia. Given the restricted location to the distal esophagus, the differential diagnosis includes gastroesophageal reflux disease and eosinophilic esophagitis. Correlation with endoscopic findings is necessary. NAL:cml:C2NR GROSS DESCRIPTION: Five specimens are received in five containers, labeled "Maylin Mora." A. The specimen, labeled "Maylin Mora, #1," and designated on the requisition "duodenum biopsy," is received in formalin and consists of two barajas soft tissue fragments that measure 0.3 and 0.4 cm in greatest dimension. The specimen is entirely submitted in cassette (A1). B. The specimen, labeled "Maylin Mora, #2," and designated on the requisition "antrum biopsy," is received in formalin and consists of two barajas soft tissue fragments that measure 0.3 and 0.4 cm in greatest dimension. The specimen is entirely submitted in cassette (B1). C. The specimen, labeled "Maylin Mora, #3," and designated on the requisition "stomach polypectomy gastric," is received in formalin and consists of one barajas soft tissue fragment that measures 0.4 cm in greatest dimension. The specimen is entirely submitted in cassette (C1). D. The specimen, labeled "Maylin Mora, #4," and designated on the requisition "distal esophagus biopsy," is received in formalin and consists of three barajas soft tissue fragments that measure 0.3 to 0.5 cm in greatest dimension. The specimen is entirely submitted in cassette (D1). E. The specimen, labeled "Maylin Mora, #5," and designated on the requisition "middle esophagus biopsy," is received in formalin and consists of two-barajas soft tissue fragments that measure 0.5 and 0.6 cm in greatest dimension. The specimen is entirely submitted in cassette (E1). FB (under the direct supervision of a pathologist) The Gross Description was prepared using a voice recognition system. The report was reviewed for accuracy; however, sound-alike word errors, addition and/or deletions may occur. If there is any PATIENT NAME: MAYLIN MORA PATHOLOGY DATE OF : 65 REPORT #: [id number] PHYSICIAN: BERT MOODY PCP: KEYANNA ROMO REPORT IS CONFIDENTIAL AND NOT TO BE RELEASED WITHOUT AUTHORIZATION [facility] [address] [place] [id number] Signed question about this report, please contact Client Services. PERFORMING LABORATORY: The technical component was performed by [facility], [address] [place] [address] (Dcs Engineer: Geri Newby MD; CLIA# [id number]). [facility] [address] [address] (IA# [id number]). Diagnostician: Massiel Funes MD Pathologist Electronically Signed 03/21/2021 Copies: ~ PATIENT NAME: MAYLIN MORA PATHOLOGY DATE OF : 65 REPORT #: [id number] PHYSICIAN: BERT PATHOLOGY PCP: KEYANNA ROMO REPORT IS CONFIDENTIAL AND NOT TO BE RELEASED WITHOUT AUTHORIZATION
== END 2021-03-15 09:15 | disposition home or self-care (01) ==
LOC: OPS 06:20 → DS 06:20 → OPS 06:45
PROVIDERS: ATTEND Surgery
PROC: 0DB68ZZ Excision of Stomach, Via Natural or Artificial Opening Endoscopic (ICD-10-PCS; principal; 2021-03-15 06:45)
PROC: 0DJD8ZZ Inspection of Lower Intestinal Tract, Via Natural or Artificial Opening Endoscopic (ICD-10-PCS; 2021-03-15 06:45)
DX: K59.00 Constipation, unspecified (principal); K31.84 Gastroparesis; K21.9 Gastro-esophageal reflux disease without esophagitis; K57.30 Diverticulosis of large intestine without perforation or abscess without bleeding; K44.9 Diaphragmatic hernia without obstruction or gangrene; K31.7 Polyp of stomach and duodenum; K29.50 Unspecified chronic gastritis without bleeding; I10 Essential (primary) hypertension; J45.909 Unspecified asthma, uncomplicated; F90.9 Attention-deficit hyperactivity disorder, unspecified type; Z88.8 Allergy status to other drugs, medicaments and biological substances; Z90.711 Acquired absence of uterus with remaining cervical stump
CPT/HCPCS: 99153; G0500; J2250; J3010; J7121

== ENCOUNTER 2022-01-22 22:11 | Emergency (ER) | payer OTHER ==
[~2022-01-22] VITALS: Ht 160 cm; Wt 89.9 kg
[~2022-01-22 22:11] MED LIST changes: +CEPHALEXIN250 MG PO; +DEXTROAMP-AMPHET5 MG PO; +GLIMEPIRIDE2 MG PO; +GLIMEPIRIDE4 MG PO; +ONDANSETRON HCL8 MG PO; +OXYBUTYNIN CHLOR5 M1 PO; +SUMATRIPTAN SU100 MG PO
--- OUTSIDE RECORDS SUMMARY | 2022-01-22 22:14 | XMS ---
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 Leti VISIT COUNT (12 MO.) 1 LEIA Weber TOTAL 1 NOTE: Visits indicate total known visits. ED/UCC VISIT TRACKING (12 MO.) 01/22/2022 22:12 LEIA Cobos OR TYPE: Emergency COMPLAINT: - FALL/ BACK PAIN INPATIENT VISIT TRACKING (12 MO.) No inpatient visits to display in this time frame [email or web address]
[2022-01-22] MEDS ORDERED: VICTOZA 3-0.6 MG/0.1 SUB-Q (22:27)
[2022-01-22] MEDS ORDERED: KETOROLAC TROME10 MG PO (22:28)
[2022-01-22] MEDS ORDERED: PHENTERMINE H37.5 M1 PO (22:28)
[2022-01-23] MEDS ORDERED: VALIUM5 MG PO (00:51)
[2022-01-23] MEDS ORDERED: LIDODERM1 EACH TOP (00:51)
[2022-01-23] MEDS ORDERED: TYLENOL EXTRA500 MG PO (00:51)
== END 2022-01-23 01:07 | disposition home or self-care (01) ==
LOC: ED 22:11
DX: S20.229A Contusion of unspecified back wall of thorax, initial encounter (principal); I10 Essential (primary) hypertension; K21.9 Gastro-esophageal reflux disease without esophagitis; M19.90 Unspecified osteoarthritis, unspecified site; E11.43 Type 2 diabetes mellitus with diabetic autonomic (poly)neuropathy; K31.84 Gastroparesis; Z88.8 Allergy status to other drugs, medicaments and biological substances; Z79.899 Other long term (current) drug therapy; W00.0XXA Fall on same level due to ice and snow, initial encounter
CPT/HCPCS: 51798; 72100; 99283-25; A9270

== ENCOUNTER 2022-12-15 16:09 | Emergency (ER) | payer OTHER ==
[~2022-12-15] VITALS: Ht 160 cm; Wt 83.5 kg
[~2022-12-15 16:09] MED LIST changes: +KETOROLAC TROME10 MG PO; +LIDODERM1 EACH TOP; +PHENTERMINE H37.5 M1 PO; +TYLENOL EXTRA500 MG PO; +VALIUM5 MG PO; +VICTOZA 3-0.6 MG/0.1 SUB-Q
[2022-12-15] MEDS ORDERED: JARDIANCE25 MG PO (16:25)
[2022-12-15] MEDS ORDERED: JANUVIA100 MG PO (16:25)
[2022-12-15] MEDS ORDERED: MELOXICAM7.5 MG PO (16:26)
[2022-12-15] MEDS ORDERED: SPIRONOLACTONE25 MG PO (16:26)
--- NOTE | 2022-12-17 13:57 | EKG ---
[facility] [address] [facility] [place] [address] Signed Normal sinus rhythm Anterior infarct , age undetermined Abnormal ECG No previous ECGs available Confirmed by KADE MAKI MD ([id number]) on 12/17/2022 1:57:51 PM Electronically Signed By: KDAE MAKI MD 12/17/22 1357 PATIENT NAME: MAYLIN SMALLS Electrocardiogram DATE OF : 65 PHYSICIAN: KADE MAKI MD REPORT #: [id number] REPORT IS CONFIDENTIAL AND NOT TO BE RELEASED WITHOUT AUTHORIZATION
== END 2022-12-15 19:29 | disposition home or self-care (01) ==
LOC: ED 16:09
DX: R07.2 Precordial pain (principal); E11.9 Type 2 diabetes mellitus without complications; I10 Essential (primary) hypertension; K21.9 Gastro-esophageal reflux disease without esophagitis; M19.90 Unspecified osteoarthritis, unspecified site; Z88.8 Allergy status to other drugs, medicaments and biological substances; Z79.899 Other long term (current) drug therapy
CPT/HCPCS: 36415; 71045; 80053; 83735; 84484; 85025; 93005; 93010; 99285-25; A9270

== ENCOUNTER 2024-11-23 19:48 | Emergency (ER) | payer OTHER ==
[~2024-11-23] VITALS: Ht 160 cm; Wt 81.4 kg
[~2024-11-23 19:48] MED LIST changes: +ALPRAZOLAM0.5 MG PO; +JANUVIA100 MG PO; +JARDIANCE25 MG PO; +MELOXICAM7.5 MG PO; +SPIRONOLACTONE25 MG PO
--- OUTSIDE RECORDS SUMMARY | 2024-11-23 19:57 | XMS | Continuity of Care Document ---
Demographics + + + | Address | [address] | | | [place] [address] | + + + | Preferred Language | Unknown | + + + | Marital Status | Never | + + + | Presybeterian Affiliation | Unknown | + + + | Race | White | + + + | Ethnic Group | Unknown | + + + Author + + + | Author | [facility] | + + + | Organization | [facility] | + + + | Address | [address] | | | [place] [address] | + + + | Phone | | + + + Care Team Providers + + + + | Care Black Pickler Name | Role | Phone | + + + + Unavailable | Unavailable | + + + + Unavailable | Unavailable | + + + + Allergies No information. Encounters No information. Functional Status No information. Immunizations No information. Medications + + + + | date | description | facility | + + + + | 2024-09-14 00:00 | FreeStyle Lite Test In | [facility] | | | Vitro Strip | | + + + + | 2024-08-31 00:00 | acarbose 25 MG Oral Tablet | [facility] | | | | | + + + + | 2024-09-14 00:00 | BD Pen Needle Priyanka 2nd Gen | [facility] | | | 32G X 4 MM Miscellaneous | | + + + + | 2024-08-31 00:00 | traZODone HCl 50 MG Oral | [facility] | | | Tablet | | + + + + | 2024-08-31 00:00 | Acarbose 25 MG Oral Tablet | [facility] | | | | | + + + + | 2024-08-31 00:00 | trazodone hydrochloride 50 | [facility] | | | MG Oral Tablet | | + + + + Problems No information. Procedures No information. Results/Labs No information. Social History + + + + | date | description | facility | + + + + | 2024-08-31 00:00 | Ex-smoker (finding) | [facility] | + + + + | 2024-10-03 00:00 | Ex-smoker (finding) | [facility] | + + + + Vital Signs + + + + + | date | measurement | value | units | + + + + + | 2024-08-31 00:00 | BMI | 30.9 | 1 | + + + + + | 2024-08-31 00:00 | BP_diastolic | 76 | mmHg | + + + + + | 2024-08-31 00:00 | BP_systolic | 118 | mmHg | + + + + + | 2024-08-31 00:00 | BSA | 1.8 | 1 | + + + + + | 2024-08-31 00:00 | heart_rate | 1|1| | completed | + + + + + | 2024-08-31 00:00 | heart_rate | 85 | /min | + + + + + | 2024-08-31 00:00 | height_metric | 160.02 | cm | + + + + + | 2024-08-31 00:00 | height_standard | 63 | in | + + + + + | 2024-08-31 00:00 | o2_saturation | 99 | % | + + + + + | 2024-08-31 00:00 | temperature_metric | 36.67 | C | | | | | | + + + + + | 2024-08-31 00:00 | | 98 | F | | | temperature_standar | | | | | d | | | + + + + + | 2024-08-31 00:00 | weight_metric | 79.04 | kg | + + + + + | 2024-08-31 00:00 | weight_standard | 174.25 | lb | + + + + +"
[2024-11-23] MEDS ORDERED: ASPIRIN 81 MG CHEW PO ONE (20:15)
[2024-11-23] MEDS ORDERED: ondansetron HCL 4 MG/2 ML VIAL IV ONE (20:15)
[2024-11-23] MEDS ORDERED: MORPHINE SULFATE 4 MG/ML VIAL IV ONE (20:15)
[2024-11-23 20:16] LABS: BASOPHILS 0.4 % (0-2); EOSINOPHILS 1.7 % (0-6); HEMATOCRIT 49.7 % (35.0-50.0); HEMOGLOBIN 16.9 g/dL (12.0-18.0); LYMPHOCYTES 12.6 % (24-44); MCH 30.6 (27-36); MCHC 34.1 g/dl (30-36); MCV 89.8 fl (81-99); MONOCYTES 2.9 % (0-12); NEUTROPHILS 82.4 % (39-80); PLATELET COUNT 228 K/uL (140-440); RBC 5.54 M/ul (4.3-5.7); RDW 12.8 (10.5-15.0)
[2024-11-23 20:21] LABS: INR 0.95 (0.80-1.30); PROTIME 12.3 Sec (11.2-14.2)
[2024-11-23 20:33] LABS: ALBUMIN 3.9 g/dL (3.4-5.0); ALBUMIN/GLOBULIN RATIO 0.98 (1.1-2.4); ALKALINE PHOSPHATASE 86 U/L (46-116); ALT (SGPT) 38 U/L (14-59); ANION GAP 17.1 (7-21); AST (SGOT) 22 U/L (15-37); BILIRUBIN, TOTAL 1.3 ng/dL (0.2-1.0); BUN/CREATININE RATIO 18.51 (6.0-28.6); CALCIUM 8.7 mg/dL (8.5-10.1); CARBON DIOXIDE 23 mmol/L (21-32); CHLORIDE 102 mmol/L (98-107); CREATININE, SERUM 0.81 mg/dL (0.55-1.02); GLOMERULAR FILTRATION RATE,EST 84 mL/min (>60); POTASSIUM 4.1 mmol/L (3.5-5.1); PROTEIN, TOTAL 7.9 g/dL (6.4-8.2); UREA NITROGEN 15 mg/dL (7-18)
[2024-11-23] MEDS ORDERED: DEXTROAMP-AMPHE10 MG (20:33)
[2024-11-23] MEDS ORDERED: ACARBOSE25 MG (20:34)
[2024-11-23] MEDS ORDERED: TRAZODONE HCL50 MG (20:34)
[2024-11-23] MEDS ORDERED: LIRAGLUTID0.6 MG/0.1 (20:34)
[2024-11-23] MEDS ORDERED: BRINTELLIX5 MG (20:34)
[2024-11-23 21:19] LABS: INFLUENZA B NAA NEGATIVE (NEGATIVE); RESPIRATORY SYNCYTIAL VIR NAA NEGATIVE (NEGATIVE)
[2024-11-23 21:33] LABS: BILIRUBIN, URINE NEGATIVE (negative); BLOOD/HGB, URINE NEGATIVE (Negative); KETONE, URINE TRACE (Negative); LEUK ESTERASE, URINE NEGATIVE (negative); NITRITE, URINE NEGATIVE (negative)
[2024-11-23] MEDS ORDERED: ONDANSETRON ODT8 MG PO (23:09)
[2024-11-23] MEDS ORDERED: CYCLOBENZAPRINE10 MG PO (23:09)
[2024-11-23] MEDS ORDERED: CYCLOBENZAPRINE HCL 10 MG HOME.PACK PO ONE (23:15)
[2024-11-23] MEDS ORDERED: ONDANSETRON 4 MG HOME.PACK SL ONE (23:15)
[2024-11-23 23:33] VITALS: BP 119/80
--- NOTE | 2024-11-25 12:05 | EKG ---
[facility] [address] [facility] [place], [place] [address] Signed Normal sinus rhythm Anterior infarct (cited on or before 15-DEC-2022) Abnormal ECG When compared with ECG of 15-DEC-2022 16:18, No significant change was found Confirmed by Jasmin Fregoso MD ([id number]) on 11/25/2024 12:04:55 PM Electronically Signed By: JASMIN FREGOSO 11/25/24 1205 PATIENT NAME: SMALLSMAYLIN Electrocardiogram DATE OF : 65 PHYSICIAN: JASMIN FREGOSO REPORT #: [id number] REPORT IS CONFIDENTIAL AND NOT TO BE RELEASED WITHOUT AUTHORIZATION
== END 2024-11-23 23:34 | disposition home or self-care (01) ==
LOC: ED 19:48
PROVIDERS: Family Medicine
DX: R07.89 Other chest pain (principal); K52.9 Noninfective gastroenteritis and colitis, unspecified; I10 Essential (primary) hypertension; K21.9 Gastro-esophageal reflux disease without esophagitis; E11.43 Type 2 diabetes mellitus with diabetic autonomic (poly)neuropathy; K31.84 Gastroparesis; Z88.8 Allergy status to other drugs, medicaments and biological substances; Z79.899 Other long term (current) drug therapy
CPT/HCPCS: 36415; 71045; 74018; 80053; 81003; 83735; 83880; 84484; 85025; 85610; 87502; 93005; 93010; 96374; 96375; 99284-25; A9270; J2270; J2405; U0002